=== PATIENT | female | born 1940 | race Caucasian/White ===

== ENCOUNTER → 2024-01-16 09:53 | Outpatient (REF) | payer MEDICARE, OTHER, SELFPAY | LOC: RAD 09:53 | PROVIDERS: ATTENDING PHYSICIAN Surgery Vascular Surgery; FAMILY PHYSICIAN Family Medicine | DX: I65.23 Occlusion and stenosis of bilateral carotid arteries (principal) | CPT/HCPCS: 93880 ==

== ENCOUNTER → 2024-02-25 11:27 | Outpatient (REF) | payer MEDICARE, OTHER, SELFPAY | LOC: WDC 11:27 | PROVIDERS: ATTENDING PHYSICIAN Family Medicine | DX: Z12.31 Encounter for screening mammogram for malignant neoplasm of breast (principal) | CPT/HCPCS: 77063; 77067 ==

== ENCOUNTER → 2024-07-16 12:51 | Outpatient (REF) | payer MEDICARE, OTHER, SELFPAY | LOC: RAD 12:51 | PROVIDERS: ATTENDING PHYSICIAN Surgery Vascular Surgery | DX: I65.23 Occlusion and stenosis of bilateral carotid arteries (principal) | CPT/HCPCS: 93880 ==

== ENCOUNTER → 2025-01-21 14:21 | Outpatient (REF) | payer MEDICARE, OTHER, SELFPAY | LOC: RAD 14:21 | PROVIDERS: ATTENDING PHYSICIAN Surgery Vascular Surgery; FAMILY PHYSICIAN Family Medicine | DX: I65.23 Occlusion and stenosis of bilateral carotid arteries (principal) | CPT/HCPCS: 93880 ==

== ENCOUNTER → 2025-07-13 14:08 | Outpatient (REF) | payer MEDICARE, OTHER, SELFPAY | LOC: RAD 14:08 | PROVIDERS: ATTENDING PHYSICIAN Registered Nurse; FAMILY PHYSICIAN Family Medicine | DX: I65.23 Occlusion and stenosis of bilateral carotid arteries (principal) | CPT/HCPCS: 93880 ==

== ENCOUNTER 2025-07-21 18:52 | Inpatient (IN) | payer MEDICARE, SELFPAY ==
[2025-07-21] VITALS (37 sets, daily range): BP systolic 86–204; BP diastolic 54–146; BMI 27.6
--- NOTE | 2025-07-21 16:09 | ED.CVA ---
History of Present Illness
General
Chief Complaint: CVA/TIA Symptoms
Source: patient and ambulance crew
Exam Limitations: clinical condition and altered mental status
Time Seen by Provider: 07/21/25 16:02
Nursing documentation reviewed up to this point in time: agreed with
Onset of Stroke Symptoms
Onset of symptoms known: Yes
Date of onset of symptoms: 07/21/25
Time of onset of symptoms: 14:00
History of Present Illness
History of Present Illness:
Patient presents to ED secondary to right facial droop and difficulty speaking, noted by her this afternoon. Patient's last known well time is approximately 2:00 this afternoon, when she asked her to check her blood pressure.
Prehospital stroke alert activated. Upon arrival, patient is found to exhibit left preferential gaze and unable to follow verbal commands. Unable to obtain any information from patient at this time. Patient transported to CT scan immediately.
Past History
Past History
ED Past Medical History: None
ED Past Surgical History: None
Social History
Tobacco: Non-smoker
Alcohol: None
Review of Systems
Review of Systems
Allergies reviewed?: Yes
Unable to obtain full review of systems at this time due to: due to acuity
All Other Systems: Not applicable
Phy Exam
Physical Exam
Physical Exam:
Physical Exam
General: moderate distress, acutely ill. afebrile.
Head: nc/at. pupils equal and midline
Neck: supple. no jvd. no carotid bruit
Heart: s1/s2 regular rate and rhythm
Lungs: no acute respiratory distress. clear bilaterally
Abdomen: normal bowel sounds. no distention
Neuro: awake but not following commands. intermittent spontaneous jerking UE/LE movements noted, not purposeful
Skin: no rash
Extremities: no edema. no calf tenderness.
Course
Orders/Labs/Results
Orders:
Orders
07/21/25 16:02
CT HEAD STROKE ALERT W/o Cont Urgent
Comment:
Reason For Exam: preferential gaze, speech impairment
CT HEAD/NECK ANG STROKE ALERT Urgent
Comment:
Reason For Exam: preferential gaze, speech impairment
07/21/25 16:06
Bedside Glucose- Treatment ONCE
Cardiac Monitoring- Treatment ONCE
07/21/25 16:08
Electrocardiogram (*1) Urgent
Reason for Study: TIA/Stroke
EKG- Treatment ONCE
07/21/25 16:13
Midazolam HCl [Versed] 1 mg IV NOW STA
07/21/25 16:20
Midazolam HCl [Versed] 1 mg IV NOW STA
07/21/25 16:27
Midazolam HCl [Versed] 2 mg .ROUTE .STK-MED ONE
07/21/25 16:29
Midazolam HCl [Versed] 1 mg IV NOW STA
07/21/25 16:36
Tenecteplase [Tnkase] 18 mg Syringe [Syringe Non-Pump] 0 ml IV NOW
07/21/25 16:40
Midazolam HCl [Versed] 1 mg IV NOW STA
07/21/25 16:43
Lorazepam [Ativan] 2 mg .ROUTE .STK-MED ONE
07/21/25 16:47
Levetiracetam Injectable [Keppra] 4,000 mg .ROUTE .STK-MED ONE
Lorazepam [Ativan] 1 mg IV NOW STA
07/21/25 16:51
Basic Metabolic Panel Urgent
Complete Blood Count/No Diff Urgent
PTT Urgent
Prothrombin Time Urgent
07/21/25 16:52
Levetiracetam Injectable [Keppra] 4,000 mg IV NOW STA
07/21/25 16:58
Lorazepam [Ativan] 1 mg IV NOW STA
07/21/25 17:09
Labetalol HCl [Trandate] 20 mg .ROUTE .STK-MED ONE
07/21/25 17:11
Labetalol HCl [Trandate] 10 mg IV NOW STA
07/21/25 17:21
Labetalol HCl [Trandate] 10 mg IV NOW STA
07/21/25 17:54
Restraints - Non Violent As Directed
Justification-Patient:: 2-Protective Intervention
Restraint Type-: Soft Limb-L Wrist/4rails
Soft Limb-R Wrist/4 rails
Apply From (date): 07/21/25
Apply from (time): 17:54
Remove (date): 07/22/25
Remove (time): 23:59
07/21/25 18:18
Admit/Transfer Patient As Directed
Co-Sign Provider:
Level of Care: Inpatient admission
Assign to:: ICU
Physician / Group: jose,andree
Diagnosis: acute cva s/p tnk
Reason for Hospitalization: acute cva s/p tkn
Expected length of stay greater than two midnights?: Yes
ELOS- Estimated Length of Stay in days: 6
I certify the patient meets the requirements for IP care: Yes
07/21/25 18:19
Code Status As Directed
Resuscitation Status: Full Code
07/21/25 18:24
PRN Pain Medication Management As Directed
May give lesser potent ordered pain med per pt: Yes
preference::
Protocol:: Medication orders for pain may be administered in a
manner that supports deferring to patient preference
when the pt is:
- Requesting an ordered lesser potent pain medication.
Least to most potent pain medications are defined
as: acetaminophen < NSAID < tramadol < opioids
(morphine, oxycodone, hydromorphone).
- Requesting a lesser dose of the same medication IF
ORDERED.
- Requesting a less intrusive route of administration
if both routes are prescribed by the provider (PO <
IV).
07/21/25 19:08
Acetaminophen [Tylenol] 650 mg PO Q4HPRN PRN
07/21/25 19:08
Electrocardiogram (*1) Routine
Reason for Study: TIA/Stroke
Case Management Consult Once
Case Management Consult: Discharge Planning
DIETARY IP CONSULT Routine
Reason for Consult: stroke/TIA
Media Marketing Manager Consult Routine
Consulting Provider: Tommie Ortiz
Was physician already notified: Yes
Reason for consult: acute cva
NEUROLOGY CONSULT Urgent
Consulting Provider: Lorenzo Knutson
Was physician already notified: Yes
Electric Motor Mechanic Urgent
MR Brain Without Contrast Routine
Comment: complete 24 hrs post tenecteplase administration
Reason For Exam: possible stroke, status post tenecteplase
OK for patient to be off Cardiac Monitoring for MRI: Yes
Recent pill cam endoscopy?: No
Pacemaker/Defibrillator?: No
Hemetest Stools As Directed
Comment: hemoccult all stools if patient received tenecteplase
NIH Stroke Scale As Directed
Directions: Other
Comment: NIH stroke Scale to be completed prior to thrombolytic administration, then every 1 hour for 2
hours, then every shift and with change in condition and/or mental status.
Neurological Checks As Directed
Frequency: Per unit guidelines
Additional Instructions:: after start of thrombolytic therapy:
q15min x 2 hrs, q30min x 6 hrs, q1h x 16 hrs, q4h x 24 hrs, then every shift and
with any changes.
Notify MD As Directed
Notify physician if: - Any deterioration, change in neurological status, development of severe headache,
nausea and vomiting, or with any signs of bleeding. (see guidelines for suspected
intracerebral hemorrhage).
- If intracranial hemorrhage is suspected or confirmed by imaging, anticipate need for
osmotic diuretic to maintain euvolemia.
Notify MD As Directed
Notify physician if: Glucose less than 70 or greater than 180.
Anticipate corrective insulin orders.
Notify MD As Directed
Notify physician if: unable to obtain MRI of head within 22-32 hours of tenecteplase administration
- contact Neurology for order for CT of head without contrast
Patient Education As Directed
Type: Stroke education packet
Comment: provide to patient and family
Pneumatic Compression Sleeves As Directed
Type: Knee high
Precautions As Directed
Type of Precautions: Bleeding
Comment: post Bleeding Precaution sign at bedside (if patient received tenecteplase)
Precautions As Directed
Type of Precautions: Seizure
Swallow Screening CVA/TIA ONLY As Directed
Comment: NPO until swallow screening completed
If patient FAILS swallow screening:: NPO and Speech consult and aspiration precautions
If patient PASSES swallow screening, diet:: Regular
Thrombolytic Precautions As Directed
Thrombolytic Precautions:: [place] bleeding precautions. Minimize invasive procedures and venipunctures,
avoid IM injections and over-handling patient, and check all puncture sites for
bleeding. Assess the patient and notify provider for signs and symptoms of
internal or serious bleeding, such as changes in vital signs or evidence of blood
in the urine or stool.
Additional instructions: Hemocult all stools.
Apply direct pressure or pressure dressing to any compressible puncture sites.
No ABG sampling or Ray insertion after Tenecteplase administration for 24 hours,
unless directed by the Neurologist/Attending.
Vital Signs As Directed
Frequency: q15m
Call for:: BP greater than 180/105 mmHg or less than 100/60 mmHg
Additional Instructions:: after start of thrombolytic therapy:
q15min x 2 hrs, q30min x 6 hrs, q1h x 16 hrs, q4h x 24 hrs, then every shift and
with any changes.
Ot Eval And Treat Routine
Physiatry Consult Routine
Consulting Provider: Jose Miguel Newman
Was physician already notified: Yes
Reason for consult: stroke/TIA
Pt Eval And Treat Routine
Activity Level: With Assistance
Speech Therapy Eval & Treat Routine
DX Deep Vein Thrombosis Video Routine
07/21/25 19:30
Venous Blood Gas Urgent
%Oxygen/Room Air: RA
Comment: once in ICU
07/22/25 06:00
Basic Metabolic Panel IN AM
Cardiovascular Evaluation IN AM
Complete Blood Count/No Diff IN AM
Hgba1c [Glycohemoglobin (HgbA1c)] IN AM
PTT IN AM
Prothrombin Time IN AM
VerifyNow Aspirin IN AM
Pt on daily regimen OR been given initial dose of aspirin?: Yes
Abnormal Lab Results
07/21/25
16:46
POC Glucose 101 H mg/dl
(70-99)
07/21/25 16:51
07/21/25 16:51
Vital Signs
Initial and Last Documented VS:
Initial Vital Signs
Pulse Resp
102 27
07/21/25 16:44 07/21/25 16:44
Last Documented Vital Signs
Temp Pulse Resp BP Pulse Ox
98.0 F 70 15 142/89 96
07/21/25 21:15 07/21/25 22:30 07/21/25 22:30 07/21/25 22:30 07/21/25 21:55
MDM/Problems Addressed
MDM/Problems Addressed:
Due to patient requiring multiple doses of benzodiazepine, secondary to continual involuntary movements, slight delay in obtaining adequate CT scan. In addition, upon returning from CT, patient requiring further sedation and medications, to control
blood pressure, for purpose of administering TNK potentially.
Discussed with patient's family regarding patient's condition and recommendation to administer TNK, with risk of bleeding up to 6% discussed. and children are all in agreement to administer TNK at this time.
Discussed with stroke fellow, Dr. Barclay via telestroke at [facility]. Although exam limited due to patient's inability to follow commands, based on description of patient's symptoms prior to arrival in ED and time of
onset, does recommend administering TNK at this time. In addition, agrees with plan to administered keppra, as movements are continuing thru mult doses of versed/ativan
CTA report reviewed, which does not show significant stenosis of large vessel, although his some details are unable to be obtained due to motion artifacts.
Patient will be admitted to ICU for further evaluation and treatment.
BP 163/64 at time TnK is given, after treatment with labetalol IV.
Critical care statement: A total of 40 minutes of critical care time was provided for this patient. This includes management of unstable vital signs, evaluation of the patient at bedside, reviewing the patient's pertinent medical records, discussion
with consultants, review of old EKGs and review of pertinent medical records. This time with separate from time utilized to perform the aforementioned documented procedures
*Pulse Oximetry
Patient hypoxic: no
*Critical Care Note
Total Time (30-74mins, 75-104mins- exclusive of procedures): 40 min
ED Attending Note
-
Portions of this chart may have been created with voice recognition software.� Occasional wrong word or��sound alike� substitutions may have occurred due to the inherent limitations of voice recognition software.
Discharge Plan
Departure
Patient Disposition: Admit
Date of Disposition: 07/21/25
Time of Disposition: 17:48
Admit to: ICU
Presentation/result/management discussed w/ accepting MD/DO: Hospitalist
Discharge Problem:
Acute CVA (cerebrovascular accident), Involuntary jerky movements
Interventions
Interventions:
*Risk Screen - Suicide Last Done: 07/21/25 16:13
*General Assessment Last Done: 07/21/25 16:13
*Neglect/Abuse Screening Last Done: 07/21/25 16:13
*ED COVID-19 Vaccine History Last Done: 07/21/25 16:13
*ED Influenza Vaccine History Last Done: 07/21/25 16:13
*Nursing Disposition Last Done: 07/21/25 19:16
ED- Pulmonary Assessment Last Done: 07/21/25 16:15
ED- Neurological Assessment Last Done: 07/21/25 16:15
ED- Cardiac Assessment Last Done: 07/21/25 16:15
Discharge Date and Time
Discharge Date/Time: 07/21/25 19:16
[2025-07-21] MEDS: VERSED 1 MG IV ×4 (16:16→16:40)
[2025-07-21] MEDS: ATIVAN 1 MG IV ×2 (16:47→16:59)
[2025-07-21 16:48] LABS: Glucose - Point of Care 101 mg/dl (70-99)
[2025-07-21] MEDS: KEPPRA 4000 MG IV (16:55)
[2025-07-21 16:57] LABS: Hematocrit 44.0 % (37.0-47.0); Hemoglobin 14.7 g/dL (12.0-16.0); Mean Corp Hgb Conc. 33.4 g/dL (33.0-37.0); Mean Corpuscular Volume 89.8 fL (81.0-99.0); Platelet Count 176 10^3/uL (130-400); Red Cell Dist. Width 13.2 % (11.5-14.5)
[2025-07-21 17:07] LABS: INR 1.06; PT 14.1 Sec (11.4-14.6)
[2025-07-21 17:08] LABS: APTT 25.0 Sec (23.4-35.0)
[2025-07-21] MEDS: TRANDATE 10 MG IV ×2 (17:11→17:21)
[2025-07-21 17:23] LABS: Blood Urea Nitrogen 14 mg/dl (7-17); Calcium 9.9 mg/dl (8.4-10.2); Carbon Dioxide 27 mmol/L (22-30); Chloride 102 mmol/L (98-107); Glucose 99 mg/dl (70-99); Sodium 135 mmol/L (135-145); eGFR > 60.00
[2025-07-21] MEDS: TNKASE 3.6 MG IV (17:27)
--- NOTE | 2025-07-21 17:46 | W.PN.UPDATE ---
Update Note
Progress Note Update
This note serves as an addendum to the H&P by watch parts grinder VERA�
Delaney Leann
HPI
84M
PHX HTN ( valsartan/HCTZ ? ) HLD ( ASA and Rosuvastatin ) breast CA s/p right lumpectomy 1997
Seen at ER s/p TNK :1800H
HPI noted for
- pre hospital stroke alert
Source: from ER attd Exam Limitations: clinical condition and altered mental status
Onset of Stroke Symptoms
Onset of symptoms known: Yes
Date of onset of symptoms: 07/21/25
Time of onset of symptoms: 14:00
Stroke alert for
- R facial droop
- difficulty speaking, noted by her this afternoon.
- last known well time is approximately 2:00 pm today
- she asked her to check her blood pressure.
- Prehospital stroke alert activated.
Upon arrival, patient is found to exhibit per ER record:
- left preferential gaze and unable to follow verbal commands.
- Unable to obtain any information from patient at this time.
IV Labetalol 10 x 2
IV Lorazepam 1 mg x2
IV Midazolam 1mg x 3
TNK
Relevant VS
07/21/25
16:46 07/21/25
17:08 07/21/25
17:19
Blood pressure 126/97 165/146 204/94
Vital Signs
Pulse Resp BP Pulse Ox
76 26 163/64 95
07/21/25 17:45 07/21/25 17:45 07/21/25 17:25 07/21/25 17:45
PE:
Limited exam due to sedated and reslesness
Gen: restless, unable to wake her up
Cor: RRR S1 S2
Abdomen:�soft
SUPERINTENDENT HORTICULTURE: involuntary non purposeful movement s
Relevant data�
11/11/25
16:51
WBC 9.4
Hgb 14.7
Plt Count 176
INR 1.06
Creatinine 0.6
eGFR > 60.00
HCT
No evidence of acute intracranial abnormality. Stable CT appearance.
CT HEAD/NECK ANG STROKE ALERT
- There is significant motion artifact on this examination, significantly limiting the exam.
- Calcification of the visualized superior thoracic aorta with no significant dilation.
- There is probably no significant narrowing of the origin of the right brachiocephalic artery, limited by motion.
The origin of the left common carotid artery is not adequately evaluated.
The origin of the left subclavian artery is not adequately evaluated.
The origin of the right subclavian artery is not adequately evaluated.
- The mid to distal portion of the right common carotid artery is visualized.
There is a reported history of previous right carotid endarterectomy.
Mild narrowing at the junction of the right common carotid artery and the carotid bulb, with diameter reduction of 25%.
- The origin of the proximal left ICA shows no evidence for significant narrowing. 1 cm superior to the origin of the left ICA, motion artifact is to severe for evaluation of a 2 cm segment of the proximal ICA.
Motion artifact improves in the cervical portion of the right ICA, with no evidence for hemodynamically significant narrowing.
- Motion artifact and dense contrast within the left internal jugular vein significantly limits evaluation of the left common carotid artery, left carotid bulb, and proximal left internal carotid artery, and the examination is nondiagnostic in
this region.
- Visualization of the mid to superior cervical left ICA is adequate with no evidence for significant narrowing.
- Motion limits evaluation of the petrous portion of the right ICA.
- No gross evidence for narrowing of the distal portion of the left ICA.
- There is mild to moderate motion artifact involving the cavernous portions of the internal carotid arteries bilaterally, with no gross evidence for high-grade stenosis, but limited evaluation.
- No gross evidence for narrowing of the anterior cerebral arteries.
- There is no evidence for high-grade stenosis or large vessel occlusion involving the M1 portions of the middle cerebral arteries bilaterally.
- There is a stable calcification involving the M2 portion of the right middle cerebral artery, within the sylvian fissure, involving a distal M2 branch.
Limited evaluation of the intracranial vessels with no gross evidence for high-grade stenosis.
- The origins of the vertebral arteries are not confidently identified. There appears to be some enhancement of the V1 and proximal V2 portions of the vertebral arteries bilaterally. There is some enhancement of the V3 portions of the vertebral
arteries bilaterally. Artifact limits evaluation of the V4 portions of the vertebral arteries bilaterally, but at least a portion of these segments have enhancement. No gross evidence for significant narrowing. The basilar artery is better
visualized and there is mild calcification with no evidence for high-grade stenosis.
Limited evaluation of the posterior cerebral arteries with no gross evidence for high-grade stenosis.
Changes of degenerative disc disease in the cervical spine greatest at C5-6 and C6-7. There is anterior listhesis at C7-T1 and T1-T2. Mild dextroconvex scoliosis centered in the upper thoracic spine with mild to moderate levoconvex scoliosis
centered in the midthoracic spine.
Motion artifact limits evaluation of the upper lungs, with mild dependent atelectasis and no other gross abnormality.
Automatic exposure control radiation dose reduction technology was utilized.
Last hospitalist admission:07/16/2021 - 07/19/2021
ASSESSMENT & PLAN
Acute R facial droop + difficulty speaking
Pre TNK agitation and restlessness require sedation wiht IV Lorazepam 1 mg x2 IV Midazolam 1mg x 3
- Per ER atd: CTA report reviewed, which does not show significant stenosis of large vessel, although his some details are unable to be obtained due to motion artifacts.
- s/p TNK
- FU post TNK protocol
- Permissive HTN > 220/ 120
- No APL till further advise by
- ER attd Note: dw with stroke fellow, Dr. Bishop via telestroke at [facility].
Although exam limited due to patient's inability to follow commands, based on description of patient's symptoms prior to arrival in ED and time of onset, does recommend administering TNK at this time.
In addition, agrees with plan to administered Keppra, as movements are continuing thru multiple doses of versed/Ativan
Sedated and restlessness
- IV Ativan 1mg q4H PRN
DLP
- c/w Crestor
Right superior and inferior pubic rami fracture HX
DVT Px: SCD
Full code
ICU
case dw ER attd and family in length
Total Critical Care Time__45___ minutes.
I was immediately available to the patient and staff. I personally examined, reviewed labs, diagnostic images/reports, interpretations, treatment plans, discussed patient care with other providers and family or caregivers (if patient is unable to
make decisions), entered orders as appropriate and documented the medical record.
--- NOTE | 2025-07-21 17:48 | HPS.HSE ---
Family Physician
-
Family Physician: Magalis Julian MD
Chief Complaint
-
Right facial droop difficulty speaking eye gaze
History of Present Illness
84-year-old female was last seen approximate 2 PM this afternoon by her when she asked her to check her blood pressure. He notes she had difficulty moving her right arm getting it out of her robe. She started to have trouble
speaking but then speech became clear. He called his son over to the house who noticed that she was not responding as normal she had right sided facial droop. Upon EMS arrival she was found to exhibit left preferential gaze unable to follow verbal
commands. Stroke alert was called was determined by stroke fellow patient received TNK. Her states yesterday she was complaining of headache and did take Excedrin. According to ER nurse upon arrival patient was unresponsive but restless
moving all of her extremities in bed shoulders arms legs head but was unable to open eyes follow commands. She received Versed 4 mg, IV Ativan, Keppra 4000 mg and is still restless. Her family states she does have some baseline movement disorder
of her arms and legs but never to this degree. She does not have fever, diaphoresis, cough, vomiting, diarrhea.
She has past medical history of migraines, right carotid enterectomy 05/21/2023, HTN, HLD, Gilbert's syndrome, diverticulosis, colonic polyps breast cancer 1997 status post right lumpectomy, chemo, radiation, DJD, diverticulosis,
osteoarthritis,/osteopenia glaucoma, right superior and inferior pubic rami fractures after mechanical 03/29/2021
Medical History
Past Medical History
Past Medical History: Reports Other
Additional Past Medical History:
migraines
right carotid enterectomy 05/21/2023
HTN
HLD
Gilbert's syndrome,
diverticulosis
colonic polyps
breast cancer 1997 status post right lumpectomy, chemo, radiation
DJD
diverticulosis
osteoarthritis,/osteopenia
glaucoma,
right superior and inferior pubic rami fractures after mechanical 03/29/2021
Past Surgical History: Reports Other
Additional Past Surgical History:
Right CEA 05/21/2023
Breast lumpectomy 1998 secondary to breast cancer
Social History
Tobacco: Non-smoker
Alcohol: None
Drug: None
Personal:
Living: With Family ( Lance)
Employment: Retired
Family History
Family History: Other (No family history stroke)
Allergies / Home Medications
Allergies reflects when Allergies were last updated in [facility].
Home Medications with original date entered in [employer] [facility]
Allergy/Medication List:
Allergies
Allergy/AdvReac Type Severity Reaction Status Date / Time
atorvastatin Allergy MUSCLE Verified 05/21/23 07:28
CRAMPS
pollen extracts Allergy congestion/ Verified 05/21/23 12:41
sneezing
raloxifene (From Evista) Allergy Hives Verified 05/21/23 07:28
strawberry Allergy Hives Verified 05/21/23 07:28
Home Medications
ascorbic acid (vitamin C) 500 mg tablet (Vitamin C) 500 mg PO DAILY Supplement 05/21/23
calcium 600 mg (as carbonate)-vit D3 20 mcg (800 unit) chewable tablet (Caltrate plus D) 1 tab PO DAILY Supplement 05/21/23
valsartan 320 mg-hydrochlorothiazide 12.5 mg tablet 1 tab PO DAILY Blood Pressure 05/21/23
yetknev-olapkcwkqjfhm-bakekhkm 250 mg-250 mg-65 mg tablet (Excedrin Extra Strength) 1 tab PO DAILYPRN PRN headaches 07/21/25
carboxymethylcellulose sodium 0.5 % eye drops (Refresh Tears) 1 drp BOTH EYES BIDPRN PRN dryness 07/21/25
latanoprost 0.005 % eye drops 1 drp BOTH EYES HS Eye Condition 07/21/25
rosuvastatin 20 mg tablet (Crestor) 20 mg PO DAILY High Cholesterol 07/21/25
Review of Systems
-
History Source: Family ( Lance son and daughters at bedside) and Other (ER nurse)
A 12 point ROS was completed and negative except as noted: Yes
Constitutional: Reports Other (Unresponsive but moving all extremities including head, upper shoulders very restless in bed); Denies Chills
EENT: Denies Runny Nose
Respiratory: Denies Cough or Trouble Breathing
Cardiac: Denies Chest Pain, Diaphoresis, Palpitations or Syncope
Abdomen/GI: Denies Abdominal Pain, Nausea, Vomiting or Diarrhea
: Reports Ray (Inserted in ER)
Musculoskeletal: Denies Joint Pain or Edema
Skin: Denies Rash
Neurological: Reports Other (Moving all extremities in bed but unresponsive)
Hematologic/Lymphatic: Denies Bleeding or Bruising
Physical Exam
Vital Signs
Vital Signs
Pulse Resp BP Pulse Ox
76 26 163/64 95
07/21/25 17:45 07/21/25 17:45 07/21/25 17:25 07/21/25 17:45
Physical Exam
General: Other (Unresponsive but moving all extremities including head in bed)
HEENT: NormoCephalic, Anicteric, Moist mucous membranes, PERRLA (With manual opening 3 mm bilaterally), [place] Conjunctivae and No Ptosis
Respiratory: Clear; No Wheezes, Rales or Rhonchi
Cardiac: S1/S2 and Regular Rhythm; No Murmur, Rub, Gallop or Peripheral Edema
Breast: Deferred by me
GI: Soft, Non Tender, Non Distended, Normal Bowel Sounds and No Hepatosplenomegaly
Rectal: Deferred by Provider
Genito-urinary: Deferred by me
Musculoskeletal: No Clubbing, No Cyanosis and No Edema
Skin: Warm and Dry; No Rash
Neuro: Other (Unresponsive but moving all extremities including head in bed)
Psych: Other (Restless)
Laboratory Results
-
07/21/25 16:51
07/21/25 16:51
Laboratory Results
PT 14.1 Sec (11.4-14.6) 07/21/25 16:51
INR 1.06 07/21/25 16:51
APTT 25.0 Sec (23.4-35.0) 07/21/25 16:51
Total Bilirubin Cancelled 07/21/25 16:51
AST Cancelled 07/21/25 16:51
ALT Cancelled 07/21/25 16:51
Alkaline Phosphatase Cancelled 07/21/25 16:51
Data Reviewed
-
CT Scan: Report Reviewed by me
Lab Data: Labs Reviewed by me
Impression/Plan
-
Impression/plan:
Admit to ICU
#Acute CVA status post TNK
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
ER spoke with Jaden Gallo resident
Consult neurology
-Patient given 4000 mg of Keppra IV
-Keppra bid IV tmr per dr marino
-EEG
- IV total 4 mg Versed given
- IV Ativan given in ER
- Continue IV Ativan as needed restlessness
- Consult hall tender Dr. Edmondson aware once in ICU will obtain VBG, current saturation 94% RA
-Allow permissive hypertension 220/120
-Check lipid profile, HgbA1c
- PT/OT/case management consult
- TNK protocol
-N.p.o.
- MRI tomorrow if able
- IV Ativan as needed
CT head: 1. There is a focal area of encephalomalacia involving the right parietal lobe and extending to the junction with the superior right occipital lobe in the posterior and superior right temporal lobe,
stable from previous examination, and likely from an OLD area of infarction.
2. There is a stable calcification within a right middle cerebral artery branch within the right sylvian fissure.
3. There is a 3 mm stable calcification within the right paramedian superior frontal lobe.
4. There is no evidence for acute intracranial hemorrhage. There is no mass effect with no midline shift.
5. Mild to moderate atrophy in this 84-year-old, which appears stable. The callosal angle appears normal, and findings are not considered highly suggestive of normal pressure hydrocephalus
#Hypertensive urgency
BP 209/94 was given IV Trandate BP 160/146
Will allow permissive hypertension given acute CVA
# Status post Right carotid enterectomy 05/21/2023,
#migraines
#HLD
#Gilbert's syndrome
#Diverticulosis
Colonic polyps
Other PMH:
breast cancer 1997 status post right lumpectomy, chemo, radiation
DJD
osteoarthritis,/osteopenia
glaucoma
Right superior and inferior pubic rami fractures after mechanical 03/29/2021
DVT prophylaxis
SCDs as patient received TNK
Full code per Lance at bedside and family
[2025-07-21 19:18] LABS: Glucose - Point of Care 136 mg/dl (70-99)
[2025-07-21] MEDS: PRECEDEX 100 IV (19:30)
--- NOTE | 2025-07-21 19:30 | PTCARENOTE ---
Rec'd patient from Ed post TNK@1725 thrashing around in bed, not opening eyes, hypertensive. Upon assessment Pupils 3 and briskly reactive. Right eye with left gaze, left eye midline. No tracking, does not keep eyes open herself. GCS 6, KAUR Right
side 4/5, Left side 3/5. Patient not opening eyes to any stimuli, no sounds heard, withdraws to pain in all 4 extremities. No commands followed. Very difficult to obtain NIH, NIH not previously documented. NIH in ICU 32 (mostly untestable in areas).
HOB 30 degrees. B/L wrist restraints applied for safety as patient thrashes and has already unintentionally dislodged one IV site as per ED nurse. Order appreciated. Bedrest maintained with bed alarm on. Temp noted to be 101.1 axillary, Ofirmev
order obtained and infused. Temp now 98.0 axillary. NSR on monitor. BP prior to arrival in ICU 234/117, as per ED RN. In ICU, 167/113. MD Ortiz made aware and at bedside for eval. Due to increased agitation, Precedex gtt started to maintain RASS
0--2. As per MD Ortiz, BP goals <180/105. Cardene gtt if needed once Dex takes effect. SCDs applied. Pulses palpable, no edema. Accu check 136. 4L nasal cannula, snoring intermittently. 93%. Lungs clear. NPO. Ray to gravity placed in ED. At
this time, BP/agitation controlled with Precedex. and children at bedside and updated on plan of care. Will monitor closely. MRI ordered for tomorrow.
[2025-07-21] MEDS: OFIRMEV 100 IV (19:31)
[2025-07-21 19:36] LABS: Venous Blood Gas B.E. 3.0 mmol/L (-4 to +4); Venous Blood Gas O2 Sat % 94.6 %
[2025-07-21] MEDS: NSS 250 IV (23:37)
[2025-07-22] VITALS (57 sets, daily range): BP systolic 116–190; BP diastolic 52–132; BMI 27.6
--- NOTE | 2025-07-22 00:02 | PTCARENOTE ---
Titrated Dex to RASS score, but once relaxed, became bradycardic and slightly hypotensive. Gtt weaned off, IVF bolus given. BP 140s, pt continued to thrash in bed and constantly shake head back and forth. Not following commands, neuro check
unchanged from beginning of shift. CTH ordered. When patient lays flat, unable to safely protect airway. Snore heard then apnea and sat decreased. [employer] Idalia at bedside and MD Ortiz made aware of airway safety. CTH on hold. Cerebell applied as
ordered. 0% seizure burden noted. Able to get good reading for 2 hours, then patient thrashing skewed results thereafter. Cerebell discontinued. Sitting upright, airway intact. Will monitor.
--- NOTE | 2025-07-22 03:00 | W.PN.UPDATE ---
Update Note
Progress Note Update
7153 Concern for change in neuro status (agitation and not FOC). Ceribell applied to rule out seizure activity. No seizure burden noted. Patient to agitated to continued device. Discussed repeating Head CT with Dr. Perez but concerned for airway
protection, agitation, and patient not tolerating being flat. Plan will be to reasses in AM for possible CT scan repeat.
[2025-07-22 05:31] LABS: Hematocrit 44.9 % (37.0-47.0); Hemoglobin 14.5 g/dL (12.0-16.0); Mean Corp Hgb Conc. 32.3 g/dL (33.0-37.0); Mean Corpuscular Volume 91.4 fL (81.0-99.0); Platelet Count 150 10^3/uL (130-400); Red Cell Dist. Width 13.1 % (11.5-14.5)
[2025-07-22 05:58] LABS: Blood Urea Nitrogen 12 mg/dl (7-17); Calcium 9.6 mg/dl (8.4-10.2); Carbon Dioxide 28 mmol/L (22-30); Chloride 103 mmol/L (98-107); Estimated Creatinine Clearance 61 ml/min; Glucose 118 mg/dl (70-99); HDL Cholesterol 56 mg/dl; LDL Cholesterol, Calculated 56 mg/dl; Magnesium 2.0 mg/dl (1.6-2.3); Potassium 4.5 mmol/L (3.5-5.1); Sodium 137 mmol/L (135-145); Very Low Density Lipoprotein 20 mg/dl (0-30); eGFR > 60.00
[2025-07-22 06:21] LABS: INR 1.12; PT 14.7 Sec (11.4-14.6)
[2025-07-22 06:22] LABS: APTT 22.9 Sec (23.4-35.0)
--- NOTE | 2025-07-22 08:15 | CON.MD ---
Documented by User: Joyce Flores PA-C 07/23/25 17:20
Consultation - Medical
-
Referring Provider:�
Chief Complaint:�CVA
�
History of Present Illness:�84-year-old female with PMH of (migraines, right carotid enterectomy 05/21/2023, HTN, HLD, Gilbert's syndrome, diverticulosis, colonic polyps, breast cancer 1998 status post right lumpectomy, chemo, radiation, DJD,
diverticulosis, osteoarthritis,/osteopenia glaucoma, right superior and inferior pubic rami fractures after mechanical 03/29/2021) presented to [facility] ED on 07/21/2025 via EMS for symptoms of facial droop, mental status change, difficulty moving her
right upper extremity. Prehospital stroke alert was activated .Upon arrival patient with left preferential gaze and unable to follow verbal commands. Unable to obtain information for patient. She was unresponsive but restless moving all of her
extremities but was unable to open her eyes to follow commands. She received Versed 4 mg, IV Ativan, Keppra 4000 mg and was still restless. Patient received TNK. per family, she has baseline movement disorder of her arms and legs but never to
this degree.
CT scan of the head with for acute intra cranial abnormality. Stable CT appearance. CTA of neck/head-Motion limits evaluation.no evidence for high-grade stenosis or large vessel occlusion involving the M1 portions of the middle cerebral arteries
bilaterally. Limited evaluation of the posterior cerebral arteries with no gross evidence for high-grade stenosis. Motion artifact limits evaluation of the upper lungs, with mild dependent atelectasis and no other gross abnormality. As warranted, a
follow-up cerebrovascular ultrasound could be considered
07/22--overnight there was concern for change in neurostatus, patient was agitated. Rapid EEG was done with no seizure activity. Patient was too agitated to continue device. Plan is to attempt to reassess in the morning for possible CT scan
repeat.
MRI of the brain was done that showed small nonhemorrhagic acute/subacute infarct in the right parieto-occipital region. There is an intraparenchymal hematoma within the posterior high right parietal lobe measuring 2.0 x 2.0 x 2.0 cm, with
surrounding vasogenic edema. No midline shift or herniation. Neuro recommended repeating CT of head to evaluate hematoma and to continue Keppra 500mg daily.
Repeat CT scan of head�07/22/2025 shows round focus of acute intracranial hemorrhage involving the posterior right parietal lobe, corresponding to the finding on early MRI of the brain. Antiplatelet and anticoagulation and DVT prophylaxis are
placed on hold pending neurology clearance.
Patient seen at bedside this morning, kept eyes closed at all times except when asked to open them. She is sleepy and cognitively impaired. responds to verbal cues but goes back to sleeping.
Past Medical History:�migraines, right carotid enterectomy 05/21/2023, HTN, HLD, Gilbert's syndrome, diverticulosis, colonic polyps, breast cancer 1998 status post right lumpectomy, chemo, radiation, DJD, diverticulosis, osteoarthritis,/osteopenia
glaucoma, right superior and inferior pubic rami fractures after mechanical 03/29/2021
Procedure History:� right carotid enterectomy 05/21/2023, right lumpectomy,
Family History:�non contributory
�
Social History:�
Functional Level Premorbidly:�Independent with all activities�
Functional Level Currently:�speech seen 07/22- strict NPO pending further evaluation. Not evaluated yet by therapy
�
Tobacco:�Denies�
Alcohol:�Denies�
Drug use:�Denies�
�
Lives with:�
24-hour assistance available:�
Number of floors:�Split-level home
# steps to enter:�None
# steps to second floor:
Potential First floor set up:�no
Driving:�previously
Occupation:�Retired
�
�
Allergies:�
Allergy/AdvReac Type Severity Reaction Status Date / Time
atorvastatin Allergy MUSCLE Verified 05/21/23 07:28
CRAMPS
pollen extracts Allergy congestion/ Verified 05/21/23 12:41
sneezing
raloxifene (From Evista) Allergy Hives Verified 05/21/23 07:28
strawberry Allergy Hives Verified 05/21/23 07:28
�
Review of Systems:�
Constitutional: (x) abNormal _tired,sleepy
Eye: (x) Normal _
Ear/Nose/Throat: (x) Normal _
Respiratory: (x) Normal _
Cardiovascular: (x) Normal _
Gastrointestinal: (x) Normal _
Genitourinary: (x) Normal _
Musculoskeletal: (x) abNormal _right sided weakness
Integumentary: (x) Normal _
Neurologic: (x) abNormal _confusion, agitation, right facial droop. involuntary movements
Psychiatric: (x) Normal _
Endocrine: (x) Normal _
Hematologic/Lymphatic: (x) Normal _
Allergic/Immunologic: (x) Normal _
�
Medications:�
Active Current Visit Medication List
Category Date Time Status
Acetaminophen [Tylenol] Med 07/21/25 19:08 Active
650 mg PO Q4HPRN PRN
Dexmedetomidine 400 Mcg/100 ml [Precedex] Med 07/21/25 19:30 Active
400 mcg in 100 ml IV PER PROTOCOL
Flush (0.9% Sodium Chloride) [Flush (Nss)] Med 07/21/25 20:00 Active
See Dose Instructions IV PER PROTOCOL
Levetiracetam Injectable [Keppra] Med 07/22/25 08:00 Active
500 mg IV Q12
Nicardipine 40 mg/200 ml [Cardene] Med 07/21/25 19:30 Active
40 mg in 200 ml IV PER PROTOCOL
�
Vitals:�
Temp Pulse Resp BP Pulse Ox
98.3 F 76 19 145/101 95
07/23/25 08:00 07/23/25 08:00 07/23/25 08:00 07/23/25 08:00 07/23/25 08:00
Height 5 ft 2 in
Actual Weight 67.6 kg
Body Mass Index (BMI) 27.3
�
Physical Exam:�
General Appearance/Observation: Well-developed, well-nourished individual in no apparent distress lying in bed�with involuntary movements, sleepy, kept eyes closed at all times except when stimulated
Pain/Comfort Assessment: Denies�
Mood/Affect: sleepy
�
Integumentary/Operative Site:�
�� Pressure Ulcer Evaluation: absent over heels.�
�� Other Type of Wound: face looks flushed
��
�
Eyes: Conjunctiva/Lids: normal���� Pupils: pupils equal round and reactive to light and Accommodation�: unable to visualized as was not keeping eyes open enough
Ears/Nose/Throat: oral mucosa moist,� throat -not visualized����������� Lips/Teeth/Gums: lips dry
Neck: No muscle spasm or tenderness�
Cardiovascular: Heart: regular, no murmur�
Pulses: dorsalis pedis 2+ bilaterally�
Respiratory: Respiratory Effort/Chest Expansion: normal������� Auscultation: Clear to auscultation bilaterally�
Gastrointestinal: abdomen not tender, no distension, normal abdominal bowel sounds
Genitourinary: No Ray�
Extremities:�Edema: None�Cyanosis: None�Trophic�changes: None
�
Neurology Exam:
Orientation: Alert, Oriented to self, [facility]. Not to time- said 2011 for year. Says that she is 66. She came to the hospital on the
Memory: impaired, not answering much
Comprehension: seems intact but may be slow
Two step command: impaired
Naming: NT- sleepy
Cranial Nerves:
�� CNII:�Pupillary light reflex: Intact-NT����Visual Field: impaired on left, left eye appears smaller, eyelid mostly closed. does not look to her left, had to tap her arm
�� CN III, IV, : Extraocular muscles: not tracking, left eye inverted
�� CN V:�Facial Sensation�at�Forehead: Intact,�Maxilla: Intact,�Mandible: Intact : Not tested- sleepy
�� CN VII:�Facial movement: mild facial droop, left cheek muscle seems indented, could be resting dependent
�� CN VIII:�Hearing: Normal
�� CN IX/X:�Speech & swallow: hypophonia,�Position of Uvula: Midline
�� CN XI:�Shoulder shrug: NT- sleeping , involuntary movement of RUE noted
�� CN XII:�Tongue protrusion: Midline
Sensory:
�� Light touch: Intact in bilateral upper and lower extremities : not able to assess- closes eyes and tries to sleep
��
Reflexes:
�� Biceps: 2+ bilaterally
�� Brachioradialis: 2+ bilaterally
�� Triceps: 2+ bilaterally
�� Patellar: 2+ bilaterally
�� Achilles: absent bilaterally
�� Babinski: Down going bilaterally
�� Clonus: None
�� Sriram: Negative bilaterally�
Cerebellar: Dysmetria/Ataxia: NT
Musculoskeletal:
Motor: (Manual muscle scale 0-5)� (Grossly tested as was sleepy)
Muscle SA EF WE EE FF FA HF KE DF EHL PF
Right� 5 5 5 5 5 5 5 5
Left 4 4 4 4 4 4 4- 4-
�
Tone: Normal in all extremities�
Range of Motion: Passively within normal limits hammertoes, claw toes noted
�
Lab Results:
Labs
WBC 12.5 10^3/uL (4.8-10.8) H 07/23/25 03:44
RBC 4.32 10^6/uL (4.20-5.40) 07/23/25 03:44
Hgb 12.9 g/dL (12.0-16.0) 07/23/25 03:44
Hct 38.8 % (37.0-47.0) 07/23/25 03:44
MCV 89.8 fL (81.0-99.0) 07/23/25 03:44
MCH 29.9 pg (27.0-31.0) 07/23/25 03:44
MCHC 33.2 g/dL (33.0-37.0) 07/23/25 03:44
RDW 13.2 % (11.5-14.5) 07/23/25 03:44
Plt Count 151 10^3/uL (130-400) 07/23/25 03:44
MPV 9.3 fL (7.4-10.4) 07/23/25 03:44
PT 14.7 Sec (11.4-14.6) H 07/22/25 04:45
INR 1.12 07/22/25 04:45
APTT 22.9 Sec (23.4-35.0) L 07/22/25 04:45
Plt Function - Aspirin Cancelled 07/22/25 05:53
pH 7.48 (7.35-7.45) H 07/22/25 11:23
pCO2 38 mmHg (32-35) H 07/22/25 11:23
pO2 96 mmHg (83-108) 07/22/25 11:23
HCO3 28.3 mmol/L (21-28) H 07/22/25 11:23
Base Excess 4.6 mmol/L 07/22/25 11:23
ABG O2 Sat (Measured) 98.7 % (94-98) H 07/22/25 11:23
VBG pH 7.37 (7.32-7.43) 07/21/25 19:30
VBG pCO2 51 mmHg (35-48) H 07/21/25 19:30
VBG pO2 66 mmHg (30-50) H 07/21/25 19:30
VBG HCO3 29.5 mmol/L (22-27) H 07/21/25 19:30
VBG O2 Sat (Vasquez) 94.6 % 07/21/25 19:30
VBG Base Excess 3.0 mmol/L (-4 to +4) 07/21/25 19:30
VBG O2 Therapy 07/21/25 19:30
Sodium Cancelled 07/22/25 05:17
Potassium Cancelled 07/22/25 05:17
O2 Delivery Level 07/22/25 11:23
Sodium 141 mmol/L (135-145) 07/23/25 03:44
Potassium 3.6 mmol/L (3.5-5.1) 07/23/25 03:44
Chloride 106 mmol/L (98-107) 07/23/25 03:44
Carbon Dioxide 28 mmol/L (22-30) 07/23/25 03:44
BUN 14 mg/dl (7-17) 07/23/25 03:44
Creatinine 0.5 mg/dL (0.6-1.0) L 07/23/25 03:44
Estimated Creat Clear 61 ml/min 07/23/25 03:44
eGFR > 60.00 07/23/25 03:44
Glucose 96 mg/dl (70-99) 07/23/25 03:44
Hemoglobin A1c 5.3 % (4.0-5.9) 07/22/25 04:45
Calcium 9.1 mg/dl (8.4-10.2) 07/23/25 03:44
Ionized Calcium Cancelled 07/22/25 05:17
Phosphorus 2.9 mg/dl (2.5-4.5) 07/23/25 03:44
Magnesium 2.0 mg/dl (1.6-2.3) 07/23/25 03:44
Total Bilirubin Cancelled 07/21/25 16:51
AST Cancelled 07/21/25 16:51
ALT Cancelled 07/21/25 16:51
Alkaline Phosphatase Cancelled 07/21/25 16:51
Total Protein Cancelled 07/21/25 16:51
Albumin Cancelled 07/21/25 16:51
Triglycerides 102 mg/dl (10-149) 07/22/25 04:44
Total Cholesterol 132 mg/dl (50-199) 07/22/25 04:44
LDL Cholesterol, Calc 56 mg/dl 07/22/25 04:44
VLDL Cholesterol, Calc 20 mg/dl (0-30) 07/22/25 04:44
HDL Cholesterol 56 mg/dl 07/22/25 04:44
Vitamin B12 821 pg/ml (239-931) 07/23/25 03:44
TSH (Reflex) 2.12 uIU/ml (0.47-4.68) 07/23/25 03:44
POC Glucose 136 mg/dl (70-99) H 07/21/25 19:17
�
Diagnostic Results:�as per HPI�
CT of Head 07/22/25
FINDINGS: Within the posterior and superior right parietal lobe, there is a rounded focus of increased density compatible with acute hematoma. This measures 2.0 cm transverse by 1.8 cm AP by 1.6 cm craniocaudal, and corresponds to this hematoma seen
in this region on earlier MRI of the brain. Of note, this is a new finding comparing to CT of the head of July 21, 2025.
Minimal adjacent rim of white matter edema with no significant associated mass effect.
No other focal area of acute intracranial hemorrhage is identified.
Stable region of encephalomalacia involving the right parieto-occipital and posterior temporal lobe.
Mild to moderate diffuse atrophy which appears stable. Stable moderate leukomalacia.
7 mm polyp or mucous retention cyst in the inferior right maxillary sinus. There is mild mucosal thickening in the posterior sphenoid sinuses. The rest of the visualized paranasal sinuses appear clear. The mastoid air cells appear clear.
IMPRESSION:
There is a round focus of acute intracranial hemorrhage involving the posterior right parietal lobe, corresponding to the finding on earlier MRI of the brain.
�
MRI of Brain - 07/22/2025
FINDINGS: Within the posterior and superior right parietal lobe, there is a rounded focus of increased density compatible with acute hematoma. This measures 2.0 cm transverse by 1.8 cm AP by 1.6 cm craniocaudal, and corresponds to this hematoma seen
in this region on earlier MRI of the brain. Of note, this is a new finding comparing to CT of the head of July 21, 2025.
Minimal adjacent rim of white matter edema with no significant associated mass effect.
No other focal area of acute intracranial hemorrhage is identified.
Stable region of encephalomalacia involving the right parieto-occipital and posterior temporal lobe.
Mild to moderate diffuse atrophy which appears stable. Stable moderate leukomalacia.
7 mm polyp or mucous retention cyst in the inferior right maxillary sinus. There is mild mucosal thickening in the posterior sphenoid sinuses. The rest of the visualized paranasal sinuses appear clear. The mastoid air cells appear clear.
IMPRESSION:
There is a round focus of acute intracranial hemorrhage involving the posterior right parietal lobe, corresponding to the finding on earlier MRI of the brain.
Assessment: 84-year-old female with left hemiparesis, left neglect and dysphagia found to have small nonhemorrhagic acute/subacute infarct in the right parieto-occipital region with conversion to acute intracranial hemorrhage involving the posterior
right parietal lobe
�
Plan�
PM&R�PT/OT to increase independence with ADLs, improve balance, coordination, endurance, strength, mobility, community reintegration, decreased burden of care on others and family education.�
�
CVA: Secondary prophylaxis -anticoagulant on hold due to hemorrhage, statin, and blood pressure control (SBP less than 180 and diastolic less than 100 to participate with therapy for ischemic stroke). Continue to monitor neurologic status.�
left nondominant hemiparesis: High risk for falls and sliding out of chair/bed. Safety reinforced.�
- Avoid using affected arm to help lift or pull patient as this will cause trauma to the shoulder.
left Neglect: makes patient at increased risk for falls.� Will need therapy to work on scanning of environment for safe navigation.�
Dysphagia: speech evaluation, NPO . oral care protocol, aspiration precautions. Advance diet as tolerated.�
Dysarthria: speech evaluation�
Seizures Prophylaxis: Continue Keppra, seizure precautions�. EEG to be repeated today
HTN: continue medications, monitor closely�
HLD: Statin�
Anemia: Likely multifactorial.� Continue to monitor.�
Psych: Psychology consult.� Monitor mood, adjust medications as needed.�
Skin: monitor for pressure sores/rashes/lesions.�
Pain: acetaminophen as needed.�
History of breast cancer: Noted, status postlumpectomy and chemo
Bowel: recommend adding Colace and Senna, PRN bisacodyl.�
Bladder: Time void, PVRs, PRN straight cath.�
GI Prophylaxis: T/C adding Pantoprazole�once on anticoagulant
DVT Prophylaxis: mechanical. Comment if chemoprophylaxis restrictions
Pulmonary: Incentive spirometry�
Safety: Continue to reinforce assistance with all transfers.�
Code Status:� Full code
Dispo�(date/plan/equipment needs): Home with family care.� Social history reviewed.�
�
Functional and Medical Goals:�Modified Independent with ADL�s, ambulation, transfers�
�
Discharge Destination: Patient may be an ideal candidate for acute inpatient rehabilitation once she has been evaluated by PT/OT to determine her baseline and her deficits. Will continue to follow for further recommendation
�
�
Thank you for allowing me to care for your patient. Please contact me with any questions or concerns.
Consultation
-
Date/Time Consultation Requested: 07/21/2025
Date/Time Consultation Performed: 07/21/2025
Requesting Provider: Delaney Noriega CRNP
Performing Provider: Joyce Flores/Dr. Newman
Reason for Consultation: CVA

Documented by User: Jose Miguel Newman MD 07/23/25 22:02
Consultation - Medical
-
Chief Complaint:�CVA
�
History of Present Illness:�84-year-old Right handed female with PMH of (migraines, right carotid enterectomy 05/21/2023, HTN, HLD, Gilbert's syndrome, diverticulosis, colonic polyps, breast cancer 1997 status post right lumpectomy, chemo,
radiation, DJD, diverticulosis, osteoarthritis,/osteopenia glaucoma, right superior and inferior pubic rami fractures after mechanical 03/29/2021) presented to [facility] ED on 07/21/2025 via EMS for symptoms of facial droop, mental status change,
difficulty moving her left upper extremity. Prehospital stroke alert was activated .Upon arrival patient with left preferential gaze and unable to follow verbal commands. Unable to obtain information for patient. She was unresponsive but restless
moving all of her extremities but was unable to open her eyes to follow commands. She received Versed 4 mg, IV Ativan, Keppra 4000 mg and was still restless. Patient received TNK. per family, she has baseline movement disorder of her arms and
legs but never to this degree.
CT scan of the head with no acute intra cranial abnormality. Stable CT appearance. CTA of neck/head-Motion limits evaluation.no evidence for high-grade stenosis or large vessel occlusion involving the M1 portions of the middle cerebral arteries
bilaterally. Limited evaluation of the posterior cerebral arteries with no gross evidence for high-grade stenosis. Motion artifact limits evaluation of the upper lungs, with mild dependent atelectasis and no other gross abnormality. As warranted, a
follow-up cerebrovascular ultrasound could be considered
07/22--overnight there was concern for change in neurostatus, patient was agitated. Rapid EEG was done with no seizure activity. Patient was too agitated to continue device. Plan is to attempt to reassess in the morning for possible CT scan
repeat.
MRI of the brain was done that showed small nonhemorrhagic acute/subacute infarct in the right parieto-occipital region. There is an intraparenchymal hematoma within the posterior high right parietal lobe measuring 2.0 x 2.0 x 2.0 cm, with
surrounding vasogenic edema. No midline shift or herniation. Neuro recommended repeating CT of head to evaluate hematoma and to continue Keppra 500mg daily.
Repeat CT scan of head�07/22/2025 shows round focus of acute intracranial hemorrhage involving the posterior right parietal lobe, corresponding to the finding on early MRI of the brain. Antiplatelet and anticoagulation and DVT prophylaxis are
placed on hold pending neurology clearance.
Patient seen at bedside this morning, kept eyes closed at all times except when asked to open them. She is sleepy and cognitively impaired. responds to verbal cues but goes back to sleeping.
Past Medical History:�migraines, right carotid enterectomy 05/21/2023, HTN, HLD, Gilbert's syndrome, diverticulosis, colonic polyps, breast cancer 1998 status post right lumpectomy, chemo, radiation, DJD, diverticulosis, osteoarthritis,/osteopenia
glaucoma, right superior and inferior pubic rami fractures after mechanical 03/29/2021
Procedure History:� right carotid enterectomy 05/21/2023, right lumpectomy
Family History:�non contributory
�
Social History:�
Functional Level Premorbidly:�Independent with all activities�
Functional Level Currently:�speech seen 07/22- strict NPO pending further evaluation. Not evaluated yet by therapy
�
Tobacco:�Denies�
Alcohol:�Denies�
Drug use:�Denies�
�
Lives with:�
24-hour assistance available:�Yes
Number of floors:�Split-level home
# steps to enter:�1+5 to main floor
Potential First floor set up:�no
Driving:�previously
Occupation:�Retired
�
�
Allergies:�
Allergy/AdvReac Type Severity Reaction Status Date / Time
atorvastatin Allergy MUSCLE Verified 05/21/23 07:28
CRAMPS
pollen extracts Allergy congestion/ Verified 05/21/23 12:41
sneezing
raloxifene (From Evista) Allergy Hives Verified 05/21/23 07:28
strawberry Allergy Hives Verified 05/21/23 07:28
�
Review of Systems:�
Constitutional: (x) abNormal _tired,sleepy
Eye: (x) Normal _
Ear/Nose/Throat: (x) Normal _
Respiratory: (x) Normal _
Cardiovascular: (x) Normal _
Gastrointestinal: (x) Normal _
Genitourinary: (x) Normal _
Musculoskeletal: (x) abNormal _right sided weakness
Integumentary: (x) Normal _
Neurologic: (x) abNormal _confusion, agitation, left facial droop. involuntary movements
Psychiatric: (x) Normal _
Endocrine: (x) Normal _
Hematologic/Lymphatic: (x) Normal _
Allergic/Immunologic: (x) Normal _
�
Medications:�
Active Current Visit Medication List
Category Date Time Status
Acetaminophen [Tylenol] Med 07/21/25 19:08 Active
650 mg PO Q4HPRN PRN
Dexmedetomidine 400 Mcg/100 ml [Precedex] Med 07/21/25 19:30 Active
400 mcg in 100 ml IV PER PROTOCOL
Flush (0.9% Sodium Chloride) [Flush (Nss)] Med 07/21/25 20:00 Active
See Dose Instructions IV PER PROTOCOL
Levetiracetam Injectable [Keppra] Med 07/22/25 08:00 Active
500 mg IV Q12
Nicardipine 40 mg/200 ml [Cardene] Med 07/21/25 19:30 Active
40 mg in 200 ml IV PER PROTOCOL
�
Vitals:�
Temp Pulse Resp BP Pulse Ox
98.3 F 76 19 145/101 95
07/23/25 08:00 07/23/25 08:00 07/23/25 08:00 07/23/25 08:00 07/23/25 08:00
Height 5 ft 2 in
Actual Weight 67.6 kg
Body Mass Index (BMI) 27.3
�
Physical Exam:�
General Appearance/Observation: Well-developed, well-nourished female in no apparent distress lying in bed�with involuntary movements, sleepy, able to keep eyes open for exam but would try to close them at times. Occasional nonvolitional motor
twitches.
Pain/Comfort Assessment: Denies�
Mood/Affect: appropriate
�
Integumentary/Operative Site:�
�� Pressure Ulcer Evaluation: absent over heels.�
�
Eyes: Conjunctiva/Lids: normal���� Pupils: pupils equal round and reactive to light and Accommodation
Ears/Nose/Throat: oral mucosa moist,� throat -not visualized����������� Lips/Teeth/Gums: lips dry
Neck: No muscle spasm or tenderness�
Cardiovascular: Heart: regular, no murmur�
Pulses: dorsalis pedis 2+ bilaterally�
Respiratory: Respiratory Effort/Chest Expansion: normal������� Auscultation: Clear to auscultation bilaterally�
Gastrointestinal: abdomen not tender, no distension, normal abdominal bowel sounds
Genitourinary: No Ray�
Extremities:�Edema: None�Cyanosis: None�Trophic�changes: None
�
Neurology Exam:
Orientation: Alert, Oriented to self, Place- hospital. Not to time- said 2011 then 2014 for year. Says that she is 66. She came to the hospital on the
Memory: impaired
Comprehension: seems intact but may be slow processing
Two step command: impaired
Difficulty reading clock across the room without glasses, with glasses said 2:10 instead of 10 to 2.
Cranial Nerves:
�� CNII:�Pupillary light reflex: Intact���Visual Field: impaired on left, eyelid mostly closed. does not look to her left much, hemianopsia vs inattention. Difficulty with seeing fingers left visual field.
�� CN III, IV, : Extraocular muscles: trouble tracking, left eye inverted
�� CN V:�Facial Sensation�at�Forehead: Intact,�Maxilla: Intact,�Mandible: Intact
�� CN VII:�Facial movement: left facial weakness
�� CN VIII:�Hearing: Normal
�� CN IX/X:�Speech & swallow: hypophonia, dysarthria, dysphagia�Position of Uvula: Midline
�� CN XI:�Shoulder shrug: decreased on left
�� CN XII:�Tongue protrusion: Midline
Sensory:
�� Light touch: Intact in bilateral upper and lower extremities : not able to assess- closes eyes and tries to sleep
��
Reflexes:
�� Biceps: 2+ bilaterally
�� Brachioradialis: 2+ bilaterally
�� Triceps: 2+ bilaterally
�� Patellar: 2+ bilaterally
�� Achilles: absent bilaterally
�� Babinski: Down going bilaterally
�� Clonus: None
�� Sriram: Negative bilaterally�
Cerebellar: Dysmetria/Ataxia: NT
Musculoskeletal: Motor: (Manual muscle scale 0-5)� (Grossly tested as was sleepy)
Muscle SA EF WE EE FF FA HF KE DF EHL PF
Right� 4 5 5 5 5 5 5 5 5
Left 3 4 4 4 4 4 4 4- 4-
�
Tone: Normal in all extremities�
Range of Motion: Passively within normal limits hammertoes, claw toes noted
�
Lab Results:
Labs
WBC 12.5 10^3/uL (4.8-10.8) H 07/23/25 03:44
RBC 4.32 10^6/uL (4.20-5.40) 07/23/25 03:44
Hgb 12.9 g/dL (12.0-16.0) 07/23/25 03:44
Hct 38.8 % (37.0-47.0) 07/23/25 03:44
MCV 89.8 fL (81.0-99.0) 07/23/25 03:44
MCH 29.9 pg (27.0-31.0) 07/23/25 03:44
MCHC 33.2 g/dL (33.0-37.0) 07/23/25 03:44
RDW 13.2 % (11.5-14.5) 07/23/25 03:44
Plt Count 151 10^3/uL (130-400) 07/23/25 03:44
MPV 9.3 fL (7.4-10.4) 07/23/25 03:44
PT 14.7 Sec (11.4-14.6) H 07/22/25 04:45
INR 1.12 07/22/25 04:45
APTT 22.9 Sec (23.4-35.0) L 07/22/25 04:45
Plt Function - Aspirin Cancelled 07/22/25 05:53
pH 7.48 (7.35-7.45) H 07/22/25 11:23
pCO2 38 mmHg (32-35) H 07/22/25 11:23
pO2 96 mmHg (83-108) 07/22/25 11:23
HCO3 28.3 mmol/L (21-28) H 07/22/25 11:23
Base Excess 4.6 mmol/L 07/22/25 11:23
ABG O2 Sat (Measured) 98.7 % (94-98) H 07/22/25 11:23
VBG pH 7.37 (7.32-7.43) 07/21/25 19:30
VBG pCO2 51 mmHg (35-48) H 07/21/25 19:30
VBG pO2 66 mmHg (30-50) H 07/21/25 19:30
VBG HCO3 29.5 mmol/L (22-27) H 07/21/25 19:30
VBG O2 Sat (Vasquez) 94.6 % 07/21/25 19:30
VBG Base Excess 3.0 mmol/L (-4 to +4) 07/21/25 19:30
VBG O2 Therapy 07/21/25 19:30
Sodium Cancelled 07/22/25 05:17
Potassium Cancelled 07/22/25 05:17
O2 Delivery Level 07/22/25 11:23
Sodium 141 mmol/L (135-145) 07/23/25 03:44
Potassium 3.6 mmol/L (3.5-5.1) 07/23/25 03:44
Chloride 106 mmol/L (98-107) 07/23/25 03:44
Carbon Dioxide 28 mmol/L (22-30) 07/23/25 03:44
BUN 14 mg/dl (7-17) 07/23/25 03:44
Creatinine 0.5 mg/dL (0.6-1.0) L 07/23/25 03:44
Estimated Creat Clear 61 ml/min 07/23/25 03:44
eGFR > 60.00 07/23/25 03:44
Glucose 96 mg/dl (70-99) 07/23/25 03:44
Hemoglobin A1c 5.3 % (4.0-5.9) 07/22/25 04:45
Calcium 9.1 mg/dl (8.4-10.2) 07/23/25 03:44
Ionized Calcium Cancelled 07/22/25 05:17
Phosphorus 2.9 mg/dl (2.5-4.5) 07/23/25 03:44
Magnesium 2.0 mg/dl (1.6-2.3) 07/23/25 03:44
Total Bilirubin Cancelled 07/21/25 16:51
AST Cancelled 07/21/25 16:51
ALT Cancelled 07/21/25 16:51
Alkaline Phosphatase Cancelled 07/21/25 16:51
Total Protein Cancelled 07/21/25 16:51
Albumin Cancelled 07/21/25 16:51
Triglycerides 102 mg/dl (10-149) 07/22/25 04:44
Total Cholesterol 132 mg/dl (50-199) 07/22/25 04:44
LDL Cholesterol, Calc 56 mg/dl 07/22/25 04:44
VLDL Cholesterol, Calc 20 mg/dl (0-30) 07/22/25 04:44
HDL Cholesterol 56 mg/dl 07/22/25 04:44
Vitamin B12 821 pg/ml (239-931) 07/23/25 03:44
TSH (Reflex) 2.12 uIU/ml (0.47-4.68) 07/23/25 03:44
POC Glucose 136 mg/dl (70-99) H 07/21/25 19:17
�
Diagnostic Results:�as per HPI�
CT of Head 07/22/25
FINDINGS: Within the posterior and superior right parietal lobe, there is a rounded focus of increased density compatible with acute hematoma. This measures 2.0 cm transverse by 1.8 cm AP by 1.6 cm craniocaudal, and corresponds to this hematoma seen
in this region on earlier MRI of the brain. Of note, this is a new finding comparing to CT of the head of July 21, 2025.
Minimal adjacent rim of white matter edema with no significant associated mass effect.
No other focal area of acute intracranial hemorrhage is identified.
Stable region of encephalomalacia involving the right parieto-occipital and posterior temporal lobe.
Mild to moderate diffuse atrophy which appears stable. Stable moderate leukomalacia.
7 mm polyp or mucous retention cyst in the inferior right maxillary sinus. There is mild mucosal thickening in the posterior sphenoid sinuses. The rest of the visualized paranasal sinuses appear clear. The mastoid air cells appear clear.
IMPRESSION:
There is a round focus of acute intracranial hemorrhage involving the posterior right parietal lobe, corresponding to the finding on earlier MRI of the brain.
�
MRI of Brain - 07/22/2025
FINDINGS: Within the posterior and superior right parietal lobe, there is a rounded focus of increased density compatible with acute hematoma. This measures 2.0 cm transverse by 1.8 cm AP by 1.6 cm craniocaudal, and corresponds to this hematoma seen
in this region on earlier MRI of the brain. Of note, this is a new finding comparing to CT of the head of July 21, 2025.
Minimal adjacent rim of white matter edema with no significant associated mass effect.
No other focal area of acute intracranial hemorrhage is identified.
Stable region of encephalomalacia involving the right parieto-occipital and posterior temporal lobe.
Mild to moderate diffuse atrophy which appears stable. Stable moderate leukomalacia.
7 mm polyp or mucous retention cyst in the inferior right maxillary sinus. There is mild mucosal thickening in the posterior sphenoid sinuses. The rest of the visualized paranasal sinuses appear clear. The mastoid air cells appear clear.
IMPRESSION:
There is a round focus of acute intracranial hemorrhage involving the posterior right parietal lobe, corresponding to the finding on earlier MRI of the brain.
Assessment:
84 y/o F PMH (migraines, right carotid enterectomy 05/21/2023, HTN, HLD, Gilbert's syndrome, diverticulosis, colonic polyps, breast cancer 1998 status post right lumpectomy, chemo, radiation, DJD, diverticulosis, osteoarthritis,/osteopenia glaucoma)
with left hemiparesis, left neglect and dysphagia found to have small nonhemorrhagic acute/subacute infarct in the right parieto-occipital region with conversion to acute intracranial hemorrhage involving the posterior right parietal lobe with ADL,
ambulatory, speech, and swallow dysfunction.
�
Plan�
PM&R�PT/OT to increase independence with ADLs, improve balance, coordination, endurance, strength, mobility, community reintegration, decreased burden of care on others and family education.�
�
CVA: Secondary prophylaxis -anticoagulant on hold due to hemorrhage, statin, and blood pressure control (SBP less than 140 and diastolic less than 90 to participate with therapy for hemorrhagic stroke). Continue to monitor neurologic status.�
Left nondominant hemiparesis: High risk for falls and sliding out of chair/bed. Safety reinforced.�
- Avoid using affected arm to help lift or pull patient as this will cause trauma to the shoulder.
Left Neglect: makes patient at increased risk for falls.� Will need therapy to work on scanning of environment for safe navigation.�
Dysphagia: speech evaluation, NPO. oral care protocol, aspiration precautions. Start diet as tolerated.�
Dysarthria: speech evaluation�
Seizures Prophylaxis: Keppra seizure prophylaxis, seizure precautions. EEG to be repeated today
HTN: Nicardipine drip, valsartan 160 mg daily. must be stable on oral meds, monitor closely�
HLD: Statin�
Anemia: Likely multifactorial.� Continue to monitor.�
Psych: Psychology consult.� Monitor mood, adjust medications as needed.�
Skin: monitor for pressure sores/rashes/lesions.�
Pain: acetaminophen as needed.�
History of breast cancer: Noted, status postlumpectomy and chemo
Bowel: recommend adding Colace and Senna, PRN bisacodyl.�
Bladder: Time void, PVRs, PRN straight cath.�
DVT Prophylaxis: mechanical. Chemoprophylaxis when cleared by neurology, typically 48 hours after stable bleed on CT scan.
Pulmonary: Incentive spirometry�
Safety: Continue to reinforce assistance with all transfers.�
Code Status:� Full code
Dispo�(date/plan/equipment needs): Home with family care.� Social history reviewed.�
Functional and Medical Goals:�Modified Independent with ADL�s, ambulation, transfers�
Discharge Destination: Patient will benefit from acute inpatient rehabilitation once medically stable.
Attending Statement: I saw and examined the patient today.� Reviewed care plan with patient, therapy, nursing, and physician offset assistant press operator.� I agree with the above subjective and physical exam, and plan as documented by AMILCAR Flores with adjustments
made as necessary. A total of 60 minutes were spent with the patient preparing for the evaluation, obtaining history, performing examination and evaluation, counseling, data review, case management, care coordination, circuit recorder, and EMR
documentation.
�
�
Thank you for allowing me to care for your patient. Please contact me with any questions or concerns.
[2025-07-22] MEDS: KEPPRA 500 MG IV ×2 (08:42→20:57)
[2025-07-22 09:03] LABS: Glycohemoglobin (HgbA1c) 5.3 % (4.0-5.9)
--- NOTE | 2025-07-22 09:17 | W.PN.HOSP.TC ---
Today's Communication/Plan
-
see bold
Assessment / Plan
Assessment / Plan
HPI: 84-year-old female was last seen approximate 2 PM this afternoon by her when she asked her to check her blood pressure. He notes she had difficulty moving her right arm getting it out of her robe. She started to have trouble
speaking but then speech became clear. He called his son over to the house who noticed that she was not responding as normal she had right sided facial droop. Upon EMS arrival she was found to exhibit left preferential gaze unable to follow verbal
commands. Stroke alert was called was determined by stroke fellow patient received TNK. Her states yesterday she was complaining of headache and did take Excedrin. According to ER nurse upon arrival patient was unresponsive but restless
moving all of her extremities in bed shoulders arms legs head but was unable to open eyes follow commands. She received Versed 4 mg, IV Ativan, Keppra 4000 mg and is still restless. Her family states she does have some baseline movement disorder
of her arms and legs but never to this degree. She does not have fever, diaphoresis, cough, vomiting, diarrhea.
Assessment/plan:
#Acute dysarthria
#Acute right facial droop
Status post TNK in the ED 07/21
Neurology following, continue post TNA protocol
1. Monitor NIHSS and neurologic checks
2. BP goal after tPA < 180/105 for 24 hours after tPA, PRN hydralazine
3. Check MRI of the brain without contrast if able, check echocardiogram
4. LDL 56, HgA1C 5.3. Resume statin when able
5. Hold antiplatelet anticoagulation and any DVT pharmacologic prophylaxis for 24 hours
6. Speech, physical, occupational therapies
#Acute toxic metabolic encephalopathy
Currently sedated on a Precedex drip
ABG's reviewed, patient is not hypercapnic
Check B12, TSH
Supportive care, IVFs, NPO, wean Precedex drip as able
#Flailing extremities concerning for seizure activity
Ceribell negative for seizures
Appreciate neurology input, for EEG
Continue IV Keppra
#Essential hypertension
Holding valsartan�hydrochlorothiazide
BP goal after tPA < 180/105 for 24 hours after tPA, PRN hydralazine
#Hyperlipidemia
Resume statin when able
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
#History of Gilbert's syndrome
#History of breast cancer 1997
Status post right lumpectomy, chemo, radiation
DVT prophylaxis�SCDs
Full code
Updated daughter at bedside 07/22
Total time spent to see the patient on the floor, examine the patient, review data and lab results, discuss treatment plan with patient, nursing staff around 50 minutes.
Physical Exam
General: Sedated
HEENT: Normocephalic, Atraumatic
Respiratory: Clear to Auscultation bilaterally
Cardiac: Normal S1/S2, Regular Rate and Rhythm
GI: Soft, Nontender, Nondistended, Normal Bowel Sounds
Extremities: No Clubbing, Cyanosis, or Edema
Neuro: Sedated
Psych: Sedated
Anticipated Discharge: > 48 hours
Subjective/Interval History
-
Date of Service: July 22, 2025
Overnight events noted. Patient agitated, with intermittent flailing concerning for seizure activity. She is currently mildly sedated on a Precedex drip. No fever, no vomiting.
Objective Data
-
Labs:
Laboratory Results
07/22/25 07/22/25 07/22/25
04:44 04:45 05:17
WBC 11.0 H
Hgb 14.5
Hct 44.9
Plt Count 150
PT 14.7 H
INR 1.12
APTT 22.9 L
HCO3 Cancelled
Sodium 137
Potassium 4.5
Chloride 103
Carbon Dioxide 28
BUN 12
Creatinine 0.5 L
Glucose 118 H
Calcium 9.6
Vital Signs:
Vital Signs
Temp Pulse Resp BP Pulse Ox
97.5 F 69 13 190/65 98
07/22/25 07:11 07/22/25 06:50 07/22/25 06:50 07/22/25 06:30 07/22/25 06:50
I&O
07/21/25 07/22/25 07/23/25
06:59 06:59 06:59
Intake Total 411.2 / 411.2
Output Total 1050 / 1050
Balance -638.8 / -638.8
--- NOTE | 2025-07-22 09:59 | CON.INTV ---
Consultation
Consultation Request
Date/Time Consultation Requested: 07/21/2025 19:08
Date/Time Consultation Performed: 07/22/2024 9:59
Requesting Provider: Delaney Noriega CRNP
Performing Provider: Tommie Ortiz MD
Medical History
-
Chief Complaint: Altered Mental Status
History of Present Illness:
By her family�s report, she had spent the morning with her and was her normal self. They were sitting on the couch together, and their last normal interaction was around 1:30PM. At 2:00PM, she let him know that the blood pressure machine was
not working, and when he attempted to help her use it he noticed she could not hold her arm up in the air appropriately. BP at that time was around 129/100. He then noticed she began to experience grimacing motions of her face, followed by garbling
of her words. He contacted their son, and when these symptoms persisted they ultimately called 911. EMS arrived to the house at 3:00PM and transported her to the hospital. When her arrived to the hospital a few minutes after the ambulance
did, he was surprised that she had soiled herself. He denies any prior facial drooping.
In the ED she was noted to have left preferential gaze and was unable to follow verbal commands with intermittent spontaneous jerking of the upper and lower extremities. BP was initially normal at 126/97, but increased to 204/94. She was given IV
labetaolol 10mg x2, IV Lorazepam 1mg x2 and IV Midazolam 1mg x3, as well as Keppra. Labs showed a BMP and CBC within normal limits aside from a hemolyzed potassium. CT head showed no evidence of acute intracranial abnormality with an ASPECT score of
10. Head/Neck CTA was limited by motion artifact. TNK was ultimately administered and she was admitted to the ICU for further management. Overnight she became agitated. A ceribell was applied which noted no seizure burden.
Today her family is at her bedside, who provided information for the HPI above. She reamins unresponsive and unable to follow commands.
Past Medical History
Past Medical History: HTN, Hypercholesterolemia and Other (Fabriziobert's syndrome, osteoarthritis, osteopenia, migraines)
Past Surgical History: Other (Right carotid enterectomy 05/21/2023, Breast cancer s/p right lumpectomy 1997 with chemotherapy and radiation)
Social History
Tobacco: Non-smoker
Alcohol: None
Drug: None
Personal:
Living: With Family
Employment: Retired
Family History
Family History: Reviewed & Not Pertinent
Allergies / Home Medications
Allergies
Allergy/AdvReac Type Severity Reaction Status Date / Time
atorvastatin Allergy MUSCLE Verified 05/21/23 07:28
CRAMPS
pollen extracts Allergy congestion/ Verified 05/21/23 12:41
sneezing
raloxifene (From Evista) Allergy Hives Verified 05/21/23 07:28
strawberry Allergy Hives Verified 05/21/23 07:28
Home Medications
�Medication �Instructions �Recorded �Confirmed �Last Taken �Type
ascorbic acid (vitamin C) 500 mg 500 mg PO DAILY Supplement 05/21/23 07/21/25 05/20/23 09:00 History
tablet (Vitamin C)
calcium 600 mg (as carbonate)-vit 1 tab PO DAILY Supplement 05/21/23 07/21/25 05/20/23 09:00 History
D3 20 mcg (800 unit) chewable
tablet (Caltrate plus D)
valsartan 320 1 tab PO DAILY Blood Pressure 05/21/23 07/21/25 07/21/25 History
mg-hydrochlorothiazide 12.5 mg
tablet
tubkawj-idtruknfjbqjb-jlvqjcue 250 1 tab PO DAILYPRN PRN headaches 07/21/25 07/21/25 Unknown History
mg-250 mg-65 mg tablet (Excedrin
Extra Strength)
carboxymethylcellulose sodium 0.5 1 drp BOTH EYES BIDPRN PRN dryness 07/21/25 07/21/25 Unknown History
% eye drops (Refresh Tears)
latanoprost 0.005 % eye drops 1 drp BOTH EYES HS Eye Condition 07/21/25 07/21/25 07/20/25 History
rosuvastatin 20 mg tablet (Crestor) 20 mg PO DAILY High Cholesterol 07/21/25 07/21/25 07/21/25 History
Review of Systems
-
Unable to Obtain full review of systems at this time due to: Patient Non Verbal
Vitals / Labs / Diagnostic Testing
Vital Signs
Temp Pulse Resp BP Pulse Ox
97.5 F 69 13 190/65 98
07/22/25 07:11 07/22/25 06:50 07/22/25 06:50 07/22/25 06:30 07/22/25 06:50
Lab Data
07/22/25 04:45
07/22/25 04:44
Laboratory Results
07/21/25 07/22/25 07/22/25
16:51 04:45 05:17
PT 14.1 14.7 H
INR 1.06 1.12
APTT 25.0 22.9 L
pH Cancelled
pCO2 Cancelled
pO2 Cancelled
HCO3 Cancelled
O2 Delivery Level Cancelled
Diagnostic Testing:
Physical Exam
-
HEENT: Normocephalic
Cardiovascular: S1/S2 and Regular Rhythm
Respiratory: Clear
GI: Soft and Non Distended
Neurology: Other (Unresponsive, unable to follow commands) and Other (No abnormal motions of the upper or lower extremities observed for the duration of the time I was in the room)
Skin: Warm, Dry and Good Color
General: Comfortable
Assessment
-
Assessment:
This is an 84 y/o female with pmhx of migraines, right carotid enderectomy in 2022, essential hypertension, Gilbert�s syndrome, osteoarthritis, who presented to the ED on 07/21/2025 via EMS after onset of abnormal motions of her arm and face,
garbled speech and altered mental status who was administered TNK in the ED
Plan:
Altered Mental Status s/p TNK
Patient with sudden onset of abnormal motions in her arm, grimacing in her face, garbled speech and then altered mental status
Differential diagnosis includes seizures, acute CVA
S/p TNK, 400mg Keppra IV in the ED, IV Ativan, IV labetalol
CT Head 07/21: No acute abnormalities
CTA Head/Neck 07/21: Exam severely limited by motion artifact. There is no evidence for high-grade stenosis or large vessel occlusion involving the M1 portions of the middle cerebral arteries bilaterally.
Neurology is following, will appreciate their insight
At this point, patient still remains unresponsive though now with no observed restlessness. She is currently guarding her airway with no indication for intubation at this current time
Continue to allow permissive hypertension in wake of TNK administration
Discussed her case with Neurology today. Per their recommendations will perform EEG today. If EEG does not demonstrate seizure activity, may proceed with an MRI of the head. If it comes to this will determine if patient potentially needs
supplemental oxygen vs intubation for MRI to ensure good study.
Hold pharmacological DVT prophylaxis until at least 24 hours post TNK, and after MRI if indicated otherwise ensure no active bleed. Updated family on this plan today, and they are in agreement
Continue Keppra 500mg BID
Continue Precedex drip
Ordered ABG to assess respiratory status int he event she may need to be intubated for MRI
Will monitor
Essential Hypertension
Continue to allow permissive hypertension in wake of TNK administration
D/c/'ed Cardene drip today, was not administered
Add PRN [id number] IV Q6hr for elevated blood pressures
--- NOTE | 2025-07-22 10:06 | CON.NEURO4 ---
Consultation - Neurology 4
-
CONSULTING PHYSICIAN: Dr. Lorenzo Knutson
REFERRING PHYSICIAN: Delaney HARRISON
DICTATED BY: Dr. Lorenzo Knutson
DATE/TIME OF REQUEST: 07/22/2025
DATE/TIME OF CONSULTATION: 07/22/2025
Reason for Consultation: Speech difficulty and right-sided facial droop
ASSESSMENT AND PLAN:
The patient is an 84-year-old female who approximately at 2 PM yesterday afternoon on 07/21/2025, was noted by the family to have difficulty in moving her right arm along with some trouble speaking. She was also reported to have a right-sided
facial droop. Upon arrival of the EMS, she was found to show a left gaze preference and was unable to follow verbal commands. Stroke alert was called and the patient received TNK. The patient was agitated and restless in the ER and she received 4
mg of Versed, intravenous Ativan, and 4000 mg of Keppra, but she still was restless.
. MRI of the brain was done that showed small nonhemorrhagic acute/subacute infarct in the right parieto-occipital region. There is an intraparenchymal hematoma within the posterior high right parietal lobe measuring 2.0 x 2.0 x 2.0 cm, with
surrounding vasogenic edema. No midline shift or herniation.
. The CT of the head showed a focal area of encephalomalacia involving the right parietal lobe and extending to the junction with the superior right occipital lobe in the posterior and superior right temporal lobe, stable from previous examination,
and likely from an old area of infarction. CT of the head did not show any acute intracranial abnormality.
. The CTA of the head and neck did not show a large vessel occlusion.
. Recommend to repeat a CT of the brain without contrast to evaluate the intraparenchymal hematoma in the right parietal lobe.
. Rapid EEG was done today that did not show evidence of status epilepticus.
. Continue current medications including Keppra 500 mg twice a day.
I had a detailed discussion with the patient's and her daughter regarding the assessment and the management plan, and they verbalized understanding of our discussion.
Will follow-up.
History of Present Illness:
The patient is an 84-year-old female who approximately at 2 PM yesterday afternoon on 07/21/2025, was noted by the family to have difficulty in moving her right arm along with some trouble speaking. She was also reported to have a right-sided
facial droop. Upon arrival of the EMS, she was found to show a left gaze preference and was unable to follow verbal commands. Stroke alert was called and the patient received TNK. The patient was agitated and restless in the ER and she received 4
mg of Versed, intravenous Ativan, and 4000 mg of Keppra, but she still was restless. When the patient was seen today the patient was was drowsy and was difficult to arouse, therefore the neurologic examination was very limited.
Past Medical History:
migraines
right carotid enterectomy 05/21/2023
HTN
HLD
Gilbert's syndrome,
Diverticulosis
Colonic polyps
Breast cancer
DJD
Osteoarthritis,
Osteopenia
Glaucoma,
Review of Systems: Unable to obtain review of systems due to the acuity of the medical condition.
Neurologic Examination:
The patient was very drowsy and was difficult to arouse.
The patient was unable to open her eyes to verbal commands, however she would respond by withdrawing her limbs to painful stimulus.
Vital Signs and Labs
-
Vital Signs and Labs:
Vital Signs
Temp Pulse Resp BP Pulse Ox
36.4 C 62 11 163/60 98
07/22/25 07:11 07/22/25 08:30 07/22/25 08:30 07/22/25 08:30 07/22/25 06:50
Lab Results
07/22/25 04:45
07/22/25 04:44
PT 14.7 Sec (11.4-14.6) H 07/22/25 04:45
INR 1.12 07/22/25 04:45
APTT 22.9 Sec (23.4-35.0) L 07/22/25 04:45
Sodium 137 mmol/L (135-145) 07/22/25 04:44
Potassium 4.5 mmol/L (3.5-5.1) 07/22/25 04:44
BUN 12 mg/dl (7-17) 07/22/25 04:44
Glucose 118 mg/dl (70-99) H 07/22/25 04:44
Calcium 9.6 mg/dl (8.4-10.2) 07/22/25 04:44
Phosphorus 4.0 mg/dl (2.5-4.5) 07/22/25 04:44
LDL Cholesterol, Calc 56 mg/dl 07/22/25 04:44
Medications
-
Active Medications
Generic Name Dose Route Start Last Admin
Trade Name Freq PRN Reason Stop Dose Admin
Acetaminophen 650 mg 07/21/25 19:08
Acetaminophen 325 Mg Tablet PO 08/18/25 19:07
Q4HPRN PRN
MARCUS, mild pain, or temp >100.4F
Nicardipine/Sodium Chloride 40 mg in 200 mls @ 0 mls/hr 07/21/25 19:30
Cardene IV
PER PROTOCOL STEPHANIE
Protocol
Per Protocol
Dexmedetomidine HCl 400 mcg in 100 mls @ 0 mls/hr 07/21/25 19:30 07/21/25 19:30
Precedex IV 100 mls
PER PROTOCOL STEPHANIE Administration
Protocol
Per Protocol
Levetiracetam 500 mg 07/22/25 08:00 07/22/25 08:42
Levetiracetam (100 Mg/Ml) 500 Mg/5 Ml Vial IV 08/19/25 07:59 500 mg
Q12 STEPHANIE Administration
Sodium Chloride 0 flush 07/21/25 20:00
Sodium Chloride 0.9% (Flush) Syringe IV 08/18/25 19:59
PER PROTOCOL STEPHANIE
Home Medications
�Medication �Instructions �Recorded
ascorbic acid (vitamin C) 500 mg 500 mg PO DAILY Supplement 05/21/23
tablet (Vitamin C)
calcium 600 mg (as carbonate)-vit 1 tab PO DAILY Supplement 05/21/23
D3 20 mcg (800 unit) chewable
tablet (Caltrate plus D)
valsartan 320 1 tab PO DAILY Blood Pressure 05/21/23
mg-hydrochlorothiazide 12.5 mg
tablet
rpsgupr-cmixphmyypvsc-fdfiryek 250 1 tab PO DAILYPRN PRN headaches 07/21/25
mg-250 mg-65 mg tablet (Excedrin
Extra Strength)
carboxymethylcellulose sodium 0.5 1 drp BOTH EYES BIDPRN PRN dryness 07/21/25
% eye drops (Refresh Tears)
latanoprost 0.005 % eye drops 1 drp BOTH EYES HS Eye Condition 07/21/25
rosuvastatin 20 mg tablet (Crestor) 20 mg PO DAILY High Cholesterol 07/21/25
--- NOTE | 2025-07-22 10:24 | PTOTSP ---
Speech Therapy Evaluation:
Pt with acute risk factor for dysphagia including concern for CVA. Pt largely non-responsive during evaluation with occasional head movements noted during oral care. No verbalizations observed and pt unable to follow commands. MARIEL did not improve
during oral care or with cold stimulus (ice) on pt's lips. Further PO trials held due to safety concerns.
Recommend:
1. Strict NPO
2. Meds non-oral
3. Not appropriate for ARHP
4. Oral care 3x/daily
5. PROGRAM AIDE GROUP WORK to follow to assess candidacy for diet initiation versus need for instrumental assessment and for further language/cognitive assessment as indicated
--- NOTE | 2025-07-22 10:25 | PTCARENOTE ---
pt unresponsive NIHSS 30 , she is restless with tactile stimulation , non purposeful movement , she is on Precedex 0.4 mcg for her agitation , it was off for 30 min this am for a neuro check and she was restless and moving in bed without any
purposeful movement , the Precedex is now back on at 0.4 mcg for agitation and safety , NSR on monitor , her BP average 150s -160s systolic , she is on 4L NC with sats of 94% , her 02 sats drop below 90s when off 02 , she has shallow , snoring
respirations with lying flat , pt family is at bedside and are updated on current plan of care and condition , speech therapy here for consult and pt is to remain NPO
[2025-07-22 11:32] LABS: B.E. 4.6 mmol/L; HCO3 28.3 mmol/L (21-28); O2 Saturation % 98.7 % (94-98); PCO2 38 mmHg (32-35); PO2 96 mmHg (83-108)
[2025-07-22] MEDS: PRECEDEX 100 IV (12:09)
--- NOTE | 2025-07-22 13:25 | W.RAPID.EEG ---
Rapid EEG
-
Procedure Date: 07/22/25
Patient Status: Inpatient
Results:
Impression:
No evidence of status epilepticus
Patient was awake and drowsy.
Recording Information:
Diagnostic Recording Time: 01:28:57 (89 minutes)
Recording 1:
Start Time: Jul 22, 2025 00:08 AM End Time: Jul 22, 2025 01:37 AM
Recording Technique: This EEG was obtained using a 10 lead, 8 channel system positioned circumferentially without any parasagittal coverage (rapid EEG). Computer selected EEG is reviewed as well as background features and all clinically significant
events. Clarity algorithm utilized and implemented to provide analysis of underlying activity and seizure detection used to facilitate reading. ICD-10 Code [id number]
Clinical History: ILIANA SCANLON is a 84 year old Ischemic Stroke patient undergoing EEG to screen for non-convulsive status epilepticus.
--- NOTE | 2025-07-22 15:33 | CM ---
Initial assessment completed with with son and daughter in room. Patient lives with her in a 2 story plus basement split level home with 5 steps to upper level and 7 to lower level, 1 step to enter the home through garage. B/B on
upper and 1/2 bath on lower level. [employer] patient was independent in ADL's and ambulation with SPC. She also has a RW which she uses occasionally and a commode and RTS. No in-home services. Does have HC-POA. No VA benefits. No psychiatric
hospitalizations. PCP is Dr. Magalis Julian. Pharmacy is [facility] on [facility] in [place]. Discharge POC: TBD. Await therapy eval and rec.
[2025-07-22] MEDS: NSS 1000 IV (17:34)
--- NOTE | 2025-07-22 18:33 | PTCARENOTE ---
pt taken to MRI at 1630 while moving pt to MRI table she opened her eyes and was responding appropriately to verbal commands , NIHSS now 2 , she is drowsy and has some slurred speech , Precedex is now off at 1700 , family is at bedside
--- NOTE | 2025-07-22 19:08 | PTCARENOTE ---
MRI results given to Acute Care AUTOMOTIVE SERVICE CONSULTANT
--- NOTE | 2025-07-22 20:00 | PTCARENOTE ---
Assumed care of patient. NIH done with off-going nurse, see separate NIH charting. Patient is disoriented and drowsy, but does follow commands. Her pupils are equal and reactive. She is afebrile. She moves all of her extremities equally. Patient is
in normal sinus rhythm with adequate blood pressures (143/61). No edema, pulses are palpable. Lungs are diminished in the bases, on 2L NC. Abdomen is soft, nontender, bowel sounds present. Ray catheter in place draining concentrated yellow urine.
Skin is c/d/i, IV sites c/d/i.
[2025-07-23] VITALS (56 sets, daily range): BP systolic 106–178; BP diastolic 47–138; PULSE 82–84; O2SAT 95; BMI 27.3
--- NOTE | 2025-07-23 00:09 | PTCARENOTE ---
Patient brought to CT scan and returned without incident. Neuro status is the same, Q4 checks being performed. No changes in assessment.
--- NOTE | 2025-07-23 04:00 | PTCARENOTE ---
No changes in neuro status.
[2025-07-23 04:09] LABS: Hematocrit 38.8 % (37.0-47.0); Hemoglobin 12.9 g/dL (12.0-16.0); Mean Corp Hgb Conc. 33.2 g/dL (33.0-37.0); Mean Corpuscular Volume 89.8 fL (81.0-99.0); Platelet Count 151 10^3/uL (130-400); Red Cell Dist. Width 13.2 % (11.5-14.5)
[2025-07-23 04:39] LABS: Blood Urea Nitrogen 14 mg/dl (7-17); Calcium 9.1 mg/dl (8.4-10.2); Carbon Dioxide 28 mmol/L (22-30); Chloride 106 mmol/L (98-107); Estimated Creatinine Clearance 61 ml/min; Glucose 96 mg/dl (70-99); Magnesium 2.0 mg/dl (1.6-2.3); Potassium 3.6 mmol/L (3.5-5.1); Sodium 141 mmol/L (135-145); eGFR > 60.00
[2025-07-23 05:29] LABS: Vitamin B12 821 pg/ml (239-931)
[2025-07-23] MEDS: NSS 1000 IV ×2 (06:11→18:12)
[2025-07-23] MEDS: KEPPRA 500 MG IV ×2 (07:33→19:33)
--- NOTE | 2025-07-23 08:00 | PTCARENOTE ---
Patient received from caustic cresylate shift superintendent. NIHSS 3, has some slurring and confusion to time. Patient is on 2L nasal cannula. Is sinus rhythm in 80s on monitor. Patient is NPO, has patterson, will discontinue. Will review orders and maintain safe
environment.
--- NOTE | 2025-07-23 08:21 | W.PN.HOSP.TC ---
Today's Communication/Plan
-
see bold
Assessment / Plan
Assessment / Plan
HPI: 84-year-old female was last seen approximate 2 PM this afternoon by her when she asked her to check her blood pressure. He notes she had difficulty moving her right arm getting it out of her robe. She started to have trouble
speaking but then speech became clear. He called his son over to the house who noticed that she was not responding as normal she had right sided facial droop. Upon EMS arrival she was found to exhibit left preferential gaze unable to follow verbal
commands. Stroke alert was called was determined by stroke fellow patient received TNK. Her states yesterday she was complaining of headache and did take Excedrin. According to ER nurse upon arrival patient was unresponsive but restless
moving all of her extremities in bed shoulders arms legs head but was unable to open eyes follow commands. She received Versed 4 mg, IV Ativan, Keppra 4000 mg and is still restless. Her family states she does have some baseline movement disorder
of her arms and legs but never to this degree. She does not have fever, diaphoresis, cough, vomiting, diarrhea.
Assessment/plan:
#Acute�subacute stroke with hemorrhagic conversion
#Acute intracranial hemorrhage involving the posterior right parietal lobe
#Acute dysarthria
#Acute right facial droop
Status post TNK in the ED 07/21
Neurology following, continue post TNA protocol
1. Monitor NIHSS and neurologic checks
2. Cardene drip for goal SBP less than 140
3. Brain MRI & echo reviewed
4. LDL 56, HgA1C 5.3. Resume statin
5. Hold antiplatelet anticoagulation and any DVT pharmacologic prophylaxis until cleared by neurology
6. Speech, physical, occupational therapies
#Acute toxic metabolic encephalopathy
Status post Precedex drip
ABG's reviewed, patient is not hypercapnic
B12/TSH normal
Improving, continue supportive care
#Flailing extremities concerning for seizure activity
Family reports that patient has a baseline movement disorder of her arms and legs, but this has worsened in severity since being in the hospital
Ceribell negative for seizures
Appreciate neurology input, for EEG today
Continue IV Keppra
#Essential hypertension
Holding valsartan�hydrochlorothiazide
Cardene drip for goal SBP less than 140, PRN hydralazine
#Prolonged QTc
QTc upon admission 545 ms, QTc now normal
#Hyperlipidemia
Resume statin
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
#History of Gilbert's syndrome
#History of breast cancer 1997
Status post right lumpectomy, chemo, radiation
DVT prophylaxis�SCDs
Full code
Updated daughter at bedside 07/22
Total time spent to see the patient on the floor, examine the patient, review data and lab results, discuss treatment plan with patient, nursing staff around 51 minutes.
Physical Exam
General: Awake, alert, no acute distress
HEENT: Normocephalic, Atraumatic
Respiratory: Clear to Auscultation bilaterally
Cardiac: Normal S1/S2, Regular Rate and Rhythm
GI: Soft, Nontender, Nondistended, Normal Bowel Sounds
Extremities: No Clubbing, Cyanosis, or Edema
Neuro: Mild dysarthria noted
Psych: Calm/cooperative
Anticipated Discharge: > 48 hours
Subjective/Interval History
-
Date of Service: July 22, 2025
Patient alert and awake today. Her confusion resolved. She is asking to eat. She complains of a headache. Denies chest pain, denies shortness of breath. No fever, no vomiting.
Objective Data
-
Labs:
Laboratory Results
07/22/25 07/22/25 07/22/25
04:44 04:45 05:17
WBC 11.0 H
Hgb 14.5
Hct 44.9
Plt Count 150
PT 14.7 H
INR 1.12
APTT 22.9 L
HCO3 Cancelled
Sodium 137
Potassium 4.5
Chloride 103
Carbon Dioxide 28
BUN 12
Creatinine 0.5 L
Glucose 118 H
Calcium 9.6
07/22/25
11:23
WBC
Hgb
Hct
Plt Count
PT
INR
APTT
HCO3 28.3 H
Sodium
Potassium
Chloride
Carbon Dioxide
BUN
Creatinine
Glucose
Calcium
Vital Signs:
Vital Signs
Temp Pulse Resp BP Pulse Ox
100 F 55 14 126/55 97
07/22/25 15:00 07/22/25 14:40 07/22/25 14:40 07/22/25 14:30 07/22/25 14:40
I&O
07/21/25 07/22/25 07/23/25
06:59 06:59 06:59
Intake Total 411.2 / 418.0 44.2 / 44.2
Output Total 1050 / 1050 300 / 300
Balance -638.8 / -632.0 -255.8 / -255.8
--- NOTE | 2025-07-23 08:36 | W.PN.INTV ---
Today's Communication / Plan
Recommendations
EEG today
Enalaprilat IV Q6
Speech evaluation
Assessment
-
Assessment:
This is an 84 y/o female with pmhx of migraines, right carotid enderectomy in 2022, essential hypertension, Gilbert�s syndrome, osteoarthritis, who presented to the ED on 07/21/2025 via EMS after onset of abnormal motions of her arm and face,
garbled speech and altered mental status who was administered TNK in the ED
Plan:
Altered Mental Status s/p TNK
Subacute Infarct of the right parieto-occipital region
New Hematoma of the right parietal lobe
Patient with sudden onset of abnormal motions in her arm, grimacing in her face, garbled speech and then altered mental status
Differential diagnosis includes seizures, acute CVA
S/p TNK, 400mg Keppra IV in the ED, IV Ativan, IV labetalol
CT Head 07/21: No acute abnormalities
CTA Head/Neck 07/21: Exam severely limited by motion artifact. There is no evidence for high-grade stenosis or large vessel occlusion involving the M1 portions of the middle cerebral arteries bilaterally.
MRI Brain 07/22: Small nonhemorrhagic acute/subacute infarct in the right parieto-occipital region. There is an intraparenchymal hematoma within the posterior high right parietal lobe measuring 2.0 x 2.0 x 2.0 cm, with surrounding vasogenic edema.
No midline shift or herniation.
CT Head 07/22: There is a round focus of acute intracranial hemorrhage involving the posterior right parietal lobe, corresponding to the finding on earlier MRI of the brain.
Neurology is following, will appreciate their insight
No longer on Precedex drip
EEG will be completed today
Continue Keppra 500mg IV in the meantime
Speech to see for swallow evaluation. Continue NPO in the meantime
Continue neurochecks per protocol
Will monitor
Involuntary Movements
Apparently chronic
Recommend outpatient follow up
Essential Hypertension
Control BP more tightly now that we are >24 hours following TNK administration
Ordered Enalaprilat IV Q6
Subjective Dataa
Subjective Data
Date of Service:
Date of Service: July 23, 2025
Chief Complaint: Floor Director Follow Up
Subjective:
Patient was awake when I entered the room. She answered questions appropriately. She reports some headache. She otherwise is free of pain, shortness of breath, numbness or tingling. She continues to experience some involuntary movements of her
extremities, which her family say are baseline for her and began several years ago. They have not increased since that time in intensity, but also they report these motions have not been evaluated or worked up by a physician.
Review of Systems
General: Fever (Denies) and Chills (Denies)
Cardiopulmonary: Dyspnea (Denies), Cough (Denies) and Chest Pain (Denies)
GI: Abdominal Pain (Denies)
Neuro: Headache (Denies), Numbness (Denies) and Weakness (Denies)
Objective Data
Data Reviewed
Vital Signs / I&O / Oxygen:
Vital Signs
Temp Pulse Resp BP Pulse Ox
98.3 F 76 16 158/76 97
07/23/25 07:28 07/23/25 06:00 07/23/25 06:00 07/23/25 06:00 07/23/25 06:00
Intake and Output
07/22/25 07/23/25 07/24/25
06:59 06:59 06:59
Intake Total 411.2 / 418.0 1037.8 / 1112.8 150 / 150
Output Total 1050 / 1050 880 / 880
Balance -638.8 / -632.0 157.8 / 232.8 150 / 150
SaO2 97
Nasal Cannula flow liters per 2
minute
Physical Exam
General: Comfortable and Other (Occasional involuntary movements of the upper extremities that resolve while she sleeps)
HEENT: Normocephalic
Cardiovascular: S1-S2 and Regular Rhythm
Respiratory: Clear
Neurology: Awake and Alert
Skin: Warm, Dry and Good Color
Labs/Micro/Reports
Lab Data
07/23/25 03:44
07/23/25 03:44
Laboratory Results
07/22/25
11:23
pH 7.48 H
pCO2 38 H
pO2 96
HCO3 28.3 H
O2 Delivery Level
--- NOTE | 2025-07-23 09:59 | PTCARENOTE ---
neurology here to assess patient. reviewed MRI results with patient's son. because of small bleed, would like SBP<140. ICU/hospitalist to manage. Patient is more awake, oriented. will have speech evaluate.
[2025-07-23] MEDS: VASOTEC 0.625 MG IV (10:49)
--- NOTE | 2025-07-23 11:17 | PTCARENOTE ---
Notified neurology that patient's left eye appeared to be more deviated towards the center. patient also became more confused. Had started cardene infusion to keep SBP<140. EEG had been completed and family present at bedside.
[2025-07-23] MEDS: CARDENE 200 IV (11:51)
--- NOTE | 2025-07-23 12:45 | EEG.RPT ---
Electroencephalogram Report
Recording
Date of EE07/23/25
Type of EEG: Routine
Length of EEG recordin minutes
Patient Status: Inpatient
Recording Conditions: Awake and Drowsy
Hyperventilation Performed: No
Photic Stimulation Performed: Yes
Report
Methods;
A 21 channel digitized routine EEG was performed. The 10-20 International system of electrode placement was used. ECG was monitored. Video was recorder.
EEG interpretation:
The posterior dominant rhythm reached up to 9 Hz when fully awake, however, for the most part of the study the posterior dominant rhythm stayed at around 6 to 7 Hz.
The background rhythm showed mild diffuse slowing which was more pronounced in the right hemisphere as compared to the left hemisphere.
Drowsiness was seen that caused further slowing of the background activity.
Hyperventilation was not performed
Photic stimulation did not produce any abnormal change.
There was no epileptiform activity seen.
Clinical correlation:
This is a mildly abnormal EEG due to the bihemispheric slowing, right more than the left side. There was no definite epileptiform activity seen. This EEG can suggest mild encephalopathy. Clinical correlation is recommended.
--- NOTE | 2025-07-23 12:49 | W.PN.NEURO.1 ---
Addendum entered and electronically signed by Lorenzo Knutson MD 07/23/25 21:06:
The patient was seen and examined along with the nurse practitioner Dixie Julien, and I agree with her assessment and the management plan. Given below is my addendum.
The patient is an 84-year-old female who approximately at 2 PM on 07/21/2025, was noted by the family to have difficulty in moving her right arm along with some trouble in speaking. She was also reported to have a right-sided facial droop. Upon
arrival of the EMS, she was found to show a left-sided gaze preference and was unable to follow verbal commands. Stroke alert was called and the patient received TNK. The patient was agitated and restless in the ER and she received 4 mg of Versed,
intravenous Ativan, and 4000 mg of Keppra, but she still was restless.
. MRI of the brain was done that showed small nonhemorrhagic acute/subacute infarct in the right parieto-occipital region. There is an intraparenchymal hematoma within the posterior high right parietal lobe measuring 2.0 x 2.0 x 2.0 cm, with
surrounding vasogenic edema. No midline shift or herniation.
. The CT of the head showed a focal area of encephalomalacia involving the right parietal lobe and extending to the junction with the superior right occipital lobe in the posterior and superior right temporal lobe, stable from previous examination,
and likely from an old area of infarction. CT of the head did not show any acute intracranial abnormality.
. The CTA of the head and neck did not show a large vessel occlusion.
. A repeat CT of the head was done that showed round focus of acute intracranial hemorrhage involving the posterior right parietal lobe.
. Routine EEG was done today that did not show epileptiform activity, however it showed mild diffuse slowing which can suggest encephalopathy.
. At this time the patient is on Keppra 500 mg twice a day.
. On neurologic examination, the patient is alert and is oriented to self and person. She does not have any gross focal weakness and her speech is clear.
. Seizure precautions.
. I had a detailed discussion with the patient's son along with other family members, regarding the assessment and the management plan, and they verbalized understanding of our discussion.
. The plan is to keep systolic blood pressure < 140 and hold antiplatelet medications. The plan is to repeat a CT of the head in the morning.
Original Note:
Today's Communication / Plan
-
.
Neuro Assessment/Plan
Assessment
The patient is an 84-year-old female who approximately at 2 PM on 07/21/2025, was noted by the family to have difficulty in moving her right arm along with some trouble speaking. She was also reported to have a right-sided facial droop. Upon
arrival of the EMS, she was found to show a left gaze preference and was unable to follow verbal commands. Stroke alert was called and the patient received TNK. The patient was agitated and restless in the ER and she received 4 mg of Versed,
intravenous Ativan, and 4000 mg of Keppra, but she still was restless.
-CT head 07/22/25: There is a round focus of acute intracranial hemorrhage involving the posterior right parietal lobe, corresponding to the finding on earlier MRI of the brain.
-MRI of the brain 07/22/25: There is a small nonhemorrhagic acute/subacute infarct in the right parieto-occipital region. There is an intraparenchymal hematoma within the posterior high right parietal lobe measuring 2.0 x 2.0 x 2.0 cm, with
surrounding vasogenic edema. No midline shift or herniation.
-CT head 07/21/25: There is focal area of encephalomalacia involving the right parietal lobe and extending to the junction with the superior right occipital lobe in the posterior and superior right temporal lobe, stable from previous examination,
and likely from an old area of infarction. CT of the head did not show any acute intracranial abnormality.
-CTA of the head and neck did not show a large vessel occlusion.
-EEG 07/23/25: This is a mildly abnormal EEG due to the bihemispheric slowing, right more than the left side. There was no definite epileptiform activity seen. This EEG can suggest mild encephalopathy.
-TTE 07/23/25: EF 63%. Left atrium is mildly enlarged.
I. 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
II. Stroke-like symptoms; aphasia, right facial drooping, left gaze preference s/p TNK complicated by hemorrhagic conversion. Concern for presenting symptoms being seizure activity in the setting of subacute/old stroke given gaze preference to the
left, which is away from the area of old infarct.
III. Chronic generalized dyskinesias.
Plan
-Continue to hold antiplatelet medications. Okay to initiate DVT prophylaxis.
-SBP goal <140.
-Continue Keppra 500mg twice a day.
-Recommend 30 day Holter monitor on discharge, if this is normal would consider ILR as old stroke appears embolic.
-LDL goal <70. LDL goal is 56. Continue home rosuvastatin 20mg daily as LDL is at goal.
-Goal normoglycemia, hbA1c is 5.3.
-NIHSS and neurological checks per unit guidelines.
-Provide patient's family with a stroke education packet.
-PT/OT/ST Evaluations.
-Follow-up with movement specialist as an outpatient regarding chronic dyskinesias.
Subjective/Objective
Subjective Data
Date of Service: July 23, 2025
Patient with fluctuating levels of confusion. Ongoing chronic generalized dyskinesias.
Objective Data
Vital Signs
Temp Pulse Resp BP Pulse Ox
98.5 F 79 19 122/59 94
07/23/25 11:24 07/23/25 12:31 07/23/25 12:31 07/23/25 12:31 07/23/25 12:31
Lab Results
07/23/25 03:44
07/23/25 03:44
PT 14.7 Sec (11.4-14.6) H 07/22/25 04:45
INR 1.12 07/22/25 04:45
APTT 22.9 Sec (23.4-35.0) L 07/22/25 04:45
Sodium 141 mmol/L (135-145) 07/23/25 03:44
Potassium 3.6 mmol/L (3.5-5.1) 07/23/25 03:44
BUN 14 mg/dl (7-17) 07/23/25 03:44
Glucose 96 mg/dl (70-99) 07/23/25 03:44
Calcium 9.1 mg/dl (8.4-10.2) 07/23/25 03:44
Phosphorus 2.9 mg/dl (2.5-4.5) 07/23/25 03:44
LDL Cholesterol, Calc 56 mg/dl 07/22/25 04:44
Vitamin B12 821 pg/ml (239-931) 07/23/25 03:44
Patient Allergies
atorvastatin Allergy (Verified 05/21/23 07:28)
MUSCLE CRAMPS
pollen extracts Allergy (Verified 05/21/23 12:41)
congestion/sneezing
raloxifene (From Evista) Allergy (Verified 05/21/23 07:28)
Hives
strawberry Allergy (Verified 05/21/23 07:28)
Hives
LDL Level: <70, continue statin
Review of Systems
-
History Source: Patient
Neuro: Tremors; Negative Dizzy, Headache, Weakness, Numbness, Ataxia or Speech Problem
Physical Exam
-
General: No Apparent Distress
Eyes: No Ptosis and PERRLA
HEENT: Normocephalic
Neck: Full Range of Motion
GI: Non-distended
Psych: Confused
Extended Neurological Exam
Mood & Affect: Mood Unremarkable and Affect Unremarkable
Attention Span & Concentration: Awake, Alert, Interactive and Closes Eyes after Stimulation
Memory: Reduced
Involuntary Movement: Other (generalized dyskinesias)
Speech: Quality Unremarkable, Quantity Unremarkable and Rate of Production Unremarkable
Cranial Nerve II: Left Eye: Visual [place] Reduced (left homonymous hemianopsia)
Cranial Nerve II: Right Eye: Visual [place] Reduced (left homonymous hemianopsia)
Cranial Nerves III, IV, : Extraocular Movement: Reduced (incomplete burial to the left)
Cranial Nerve VII: Facial Symmetry: Normal Facial Symmetry
Cranial Nerve VIII: Hearing: Unremarkable Hearing to Normal Conversational Volume
Cranial Nerve XII: Tongue Protusion: Midline
Muscle Strength, Overall: Full Throughout
Pronator Drift: No Drift in Upper Extremities and No Drift in Lower Extremities
Touch Sensation: Double Simultaneous Stimulation Absent (left sided neglect)
Coordination: Oocoky-izho-lddnbh Testing Unremarkable
Modified Rockwood Score (MRS)
-
Modified Sergio Scale (mRS): Moderately severe disability. Unable to attend to bodily needs/walk.
Score: 4
Data Reviewed
-
CT-A: Report Reviewed and Image Reviewed
CT Head: Report Reviewed and Image Reviewed
MRI Head: Report Reviewed and Image Reviewed
EEG: Report Reviewed
Labs: Report Reviewed
Lipid Profile: Report Reviewed
HgbA1C: Report Reviewed
Reviewed with: Physician, Patient and Family
Intracerebral Hemorrhage Score
-
Glascow Coma Score: 13-15
Age Greater Than Or Equal To 80: Yes
ICH Volume > Or = 30 mL: Yes
Intraventricular Hemorrhage: Yes
Infratentorial Origin of Hemorrhage: No
Score: 3
Medications
-
Active Medications
Generic Name Dose Route Start Last Admin
Trade Name Freq PRN Reason Stop Dose Admin
Enalaprilat 0.625 mg 07/23/25 11:00 07/23/25 13:22
Enalaprilat 1.25 Mg/Ml Vial IV 08/20/25 10:59 Not Given
Q6 STEPHANIE
Hydralazine HCl 5 mg 07/22/25 10:56
Hydralazine 20 Mg/Ml Vial IV 08/19/25 10:55
Q6HPRN PRN
SBP>180mmHg; hold if HR>95
Sodium Chloride 1,000 mls @ 75 mls/hr 07/22/25 16:30 07/23/25 06:11
Nss IV 1,000 mls
.[id number] STEPHANIE Administration
Acetaminophen 1,000 mg in 100 mls @ 400 mls/hr 07/23/25 08:11
Ofirmev IV 07/24/25 08:10
Q6HPRN PRN
Headache/Mild Pain/Fever>100.4
Protocol
Nicardipine/Sodium Chloride 40 mg in 200 mls @ 0 mls/hr 07/23/25 11:30 07/23/25 11:51
Cardene IV 200 mls
PER PROTOCOL STEPHANIE Administration
Protocol
Per Protocol
Levetiracetam 500 mg 07/22/25 08:00 07/23/25 07:33
Levetiracetam (100 Mg/Ml) 500 Mg/5 Ml Vial IV 08/19/25 07:59 500 mg
Q12 STEPHANIE Administration
Sodium Chloride 0 flush 07/21/25 20:00
Sodium Chloride 0.9% (Flush) Syringe IV 08/18/25 19:59
PER PROTOCOL STEPHANIE
Home Medications
�Medication �Instructions �Recorded
ascorbic acid (vitamin C) 500 mg 500 mg PO DAILY Supplement 05/21/23
tablet (Vitamin C)
calcium 600 mg (as carbonate)-vit 1 tab PO DAILY Supplement 05/21/23
D3 20 mcg (800 unit) chewable
tablet (Caltrate plus D)
valsartan 320 1 tab PO DAILY Blood Pressure 05/21/23
mg-hydrochlorothiazide 12.5 mg
tablet
qxxvkdq-bbgqjpozqzehc-duyzxntc 250 1 tab PO DAILYPRN PRN headaches 07/21/25
mg-250 mg-65 mg tablet (Excedrin
Extra Strength)
carboxymethylcellulose sodium 0.5 1 drp BOTH EYES BIDPRN PRN dryness 07/21/25
% eye drops (Refresh Tears)
latanoprost 0.005 % eye drops 1 drp BOTH EYES HS Eye Condition 07/21/25
rosuvastatin 20 mg tablet (Crestor) 20 mg PO DAILY High Cholesterol 07/21/25
[2025-07-23] MEDS: VASOTEC IV (13:22)
--- NOTE | 2025-07-23 13:30 | PTCARENOTE ---
Dr. Knutson present at bedside, stated that BP should be between 140-150. Cardene gtt turned off. Patient also evaluated by Dr. Ortiz. Patient has also been seen by speech and was cleared for diet with thins liquids.
--- NOTE | 2025-07-23 14:59 | CM ---
NPO, Speech eval, EEG today showed mild abnormality indicative of mild encephalopathy. IV/Keppra, IV/Vasotec. Discharge POC: Await therapy eval and recs.
--- NOTE | 2025-07-23 16:01 | PTCARENOTE ---
was able to stand briefly and with heavy assist with PT OT. Required repetitive cuing with tasks but able to follow. Cardene weaned off as pressure low. Will continue to monitor. Bladder scanned for 330 as patient had not voided since patterson
removal. straight cathed. Ongoing neuro assessments, close BP monitoring.
[2025-07-23] MEDS: DIOVAN 80 MG PO (18:08)
[2025-07-23] MEDS: CRESTOR 20 MG PO (18:09)
[2025-07-23] MEDS: XALATAN OPHTHALMIC SOLUTION 1 DROP BOTH EYES (19:33)
--- NOTE | 2025-07-23 20:00 | PTCARENOTE ---
Assumed care of patient. NIH completed with off-going nurse, see NIH charting. Patient is drowsy but arouses to verbal stimuli. She is oriented to self and time, not oriented to place, she says she is at home. She is afebrile. She moves all
extremities and follows simple commands. Her pupils are equal and reactive. She is in NSR with blood pressures mostly 140 systolic. Patient has jerky movements at rest making it difficult to get accurate blood pressure readings. No edema noted,
pulses are all palpable. Lungs are diminished in the bases, on 2L NC. Abdomen is soft and nontender, bowel sounds present. Patient is incontinent of urine. Skin is c/d/i. IV sites are c/d/i.
[2025-07-24] VITALS (27 sets, daily range): BP systolic 115–175; BP diastolic 50–125; PULSE 65–69; BMI 28.0
--- NOTE | 2025-07-24 00:27 | PTCARENOTE ---
Patient's blood pressure up to 160-180 systolic. Cardene restarted for goal systolic of 140-150. No other changes in assessment.
[2025-07-24 03:38] LABS: Hematocrit 38.3 % (37.0-47.0); Hemoglobin 12.4 g/dL (12.0-16.0); Mean Corp Hgb Conc. 32.4 g/dL (33.0-37.0); Mean Corpuscular Volume 91.2 fL (81.0-99.0); Platelet Count 145 10^3/uL (130-400); Red Cell Dist. Width 13.0 % (11.5-14.5)
[2025-07-24 03:55] LABS: Blood Urea Nitrogen 9 mg/dl (7-17); Calcium 8.9 mg/dl (8.4-10.2); Carbon Dioxide 26 mmol/L (22-30); Chloride 103 mmol/L (98-107); Estimated Creatinine Clearance 61 ml/min; Glucose 98 mg/dl (70-99); Potassium 3.2 mmol/L (3.5-5.1); Sodium 133 mmol/L (135-145); eGFR > 60.00
[2025-07-24 03:56] LABS: Ammonia 10 umol/L (9-30)
[2025-07-24] MEDS: KCL 270 MEQ IV (04:37)
--- NOTE | 2025-07-24 08:05 | W.PN.INTV ---
Today's Communication / Plan
Recommendations
Changed Keppra IV to PO
Valsartan 320mg
Replete K
Recommend downgrade today
Will discuss anticoagulation with primary team
Assessment
-
Assessment:
This is an 84 y/o female with pmhx of migraines, right carotid enderectomy in 2022, essential hypertension, Gilbert�s syndrome, osteoarthritis, who presented to the ED on 07/21/2025 via EMS after onset of abnormal motions of her arm and face,
garbled speech and altered mental status who was administered TNK in the ED
Plan:
Altered Mental Status s/p TNK
Subacute Infarct of the right parieto-occipital region
New Hematoma of the right parietal lobe
Patient with sudden onset of abnormal motions in her arm, grimacing in her face, garbled speech and then altered mental status
Differential diagnosis includes seizures, acute CVA
S/p TNK, 400mg Keppra IV in the ED, IV Ativan, IV labetalol
CT Head 07/21: No acute abnormalities
CTA Head/Neck 07/21: Exam severely limited by motion artifact. There is no evidence for high-grade stenosis or large vessel occlusion involving the M1 portions of the middle cerebral arteries bilaterally.
MRI Brain 07/22: Small nonhemorrhagic acute/subacute infarct in the right parieto-occipital region. There is an intraparenchymal hematoma within the posterior high right parietal lobe measuring 2.0 x 2.0 x 2.0 cm, with surrounding vasogenic edema.
No midline shift or herniation.
CT Head 07/22: There is a round focus of acute intracranial hemorrhage involving the posterior right parietal lobe, corresponding to the finding on earlier MRI of the brain.
EEG 07/23: This is a mildly abnormal EEG due to the bihemispheric slowing, right more than the left side. There was no definite epileptiform activity seen. This EEG can suggest mild encephalopathy.
CT Head 07/24: Focus of parenchymal hemorrhage within the right posterior parietal lobe, grossly unchanged in size compared to prior CT, allowing for differences in measurement technique. Adjacent vasogenic edema. No new abnormality appreciated.
Neurology is following, will appreciate their insight
Currently on Keppra 500mg IV, will change to PO
Speech evaluation 07/23: Minced and Moist.
Will monitor
Involuntary Movements
Apparently chronic
Recommend outpatient follow up
Hypokalemia
Potassium today 3.2
S/p repletion with 40meq this AM
Add 40meq KCl again
Follow BMP
Essential Hypertension
Control BP more tightly now that we are >24 hours following TNK administration
Continue hydralazine 5mg PRN Q6h for SBP <140
Increase Valsartan to 320mg daily
Now off of cardene drip
Subjective Dataa
Subjective Data
Date of Service:
Date of Service: July 24, 2025
Chief Complaint: [employer]che Operator Follow Up
Subjective:
Staff report no overnight events.
Patient was sitting comfortably in bed with sons at bedside. She was eating breakfast when I arrived without any obvious motor difficulties. She is answering all questions appropriately and was able to recognize her sons. She states she is feeling
very well today. She was not able to initially tell me where she was, but upon being told she was in a Hospital she did remember it was [facility]. Her sons state yesterday her memory had been somewhat fluctuant as she sometimes confuses
the hospital for being at home, but today it is closer to her baseline than yesterday.
Review of Systems
General: Fever (Denies), Chills (Denies) and Satisfactory Appetite
Cardiopulmonary: Dyspnea (Denies) and Chest Pain (Denies)
GI: Abdominal Pain (Denies) and Nausea (Denies)
Neuro: Headache (Denies), Numbness (Denies) and Weakness (Denies)
Objective Data
Data Reviewed
Vital Signs / I&O / Oxygen:
Vital Signs
Temp Pulse Resp BP Pulse Ox
98.3 F 72 16 156/73 98
07/23/25 20:00 07/24/25 06:00 07/24/25 06:00 07/24/25 06:00 07/24/25 06:00
Intake and Output
07/23/25 07/24/25 07/25/25
06:59 06:59 06:59
Intake Total 1037.8 / 1112.8 2026.5 / 2025.5
Output Total 880 / 880 550 / 550
Balance 157.8 / 232.8 1476.5 / 1476.5
SaO2 98
Nasal Cannula flow liters per 2
minute
Physical Exam
General: Comfortable and Other (Occasional involuntary movements of the upper extremities that resolve while she sleeps)
HEENT: Normocephalic
Cardiovascular: S1-S2 and Regular Rhythm
Respiratory: Clear
Neurology: Awake and Alert
Skin: Warm, Dry and Good Color
Labs/Micro/Reports
Lab Data
07/24/25 03:13
07/24/25 03:13
--- NOTE | 2025-07-24 08:24 | PTCARENOTE ---
- 0700 assumed care; patient in bed; NIH done at change of shift, no change noted from Previous shift. denies chest pain; denies SOB
CT results pending;
-patient awake to person and time; disoriented to place; No motor skills deficit noted ; pupils reactive to light
-BP 161/125; Normal Sinus Rhythm 73;
[2025-07-24] MEDS: KEPPRA 500 MG IV (08:32)
[2025-07-24] MEDS: DIOVAN 160 MG PO ×2 (08:33→12:07)
--- NOTE | 2025-07-24 08:56 | W.PN.HOSP.TC ---
Addendum entered and electronically signed by Castillo Gamez MD 07/24/25 15:39:
#Hypokalemia
Repleted, recheck a.m. labs
#Hyponatremia
Mild, monitor
Original Note:
Today's Communication/Plan
-
Stable for telemetry
Assessment / Plan
Assessment / Plan
HPI: 84-year-old female was last seen approximate 2 PM this afternoon by her when she asked her to check her blood pressure. He notes she had difficulty moving her right arm getting it out of her robe. She started to have trouble
speaking but then speech became clear. He called his son over to the house who noticed that she was not responding as normal she had right sided facial droop. Upon EMS arrival she was found to exhibit left preferential gaze unable to follow verbal
commands. Stroke alert was called was determined by stroke fellow patient received TNK. Her states yesterday she was complaining of headache and did take Excedrin. According to ER nurse upon arrival patient was unresponsive but restless
moving all of her extremities in bed shoulders arms legs head but was unable to open eyes follow commands. She received Versed 4 mg, IV Ativan, Keppra 4000 mg and is still restless. Her family states she does have some baseline movement disorder
of her arms and legs but never to this degree. She does not have fever, diaphoresis, cough, vomiting, diarrhea.
Assessment/plan:
#Acute�subacute stroke with hemorrhagic conversion
#Acute intracranial hemorrhage involving the posterior right parietal lobe
#Acute dysarthria
#Acute right facial droop
Status post TNK in the ED 07/21
Neurology following, continue post TNA protocol
1. Monitor NIHSS and neurologic checks
2. Resumed home diovan. IV hydralazine prn for goal SBP less than 140
3. Brain MRI & echo reviewed. 07/[address] showed unchanged right posterior lobe intracranial hemorrhage
4. LDL 56, HgA1C 5.3. Resumed statin
5. Start aspirin 81 mg p.o. daily 07/24 as per neurology, hold DVT prophylaxis
6. Speech, physical, occupational therapies - rec acute rehab
Neurology recommends repeating head CT in 2 days, and starting DVT prophylaxis with Lovenox 07/26
#Acute toxic metabolic encephalopathy
Status post Precedex drip
ABG's reviewed, patient is not hypercapnic
B12/TSH normal
Improving, continue supportive care
#Flailing extremities concerning for seizure activity
Family reports that patient has a baseline movement disorder of her arms and legs, but this has worsened in severity since being in the hospital
Ceribell negative for seizures
Appreciate neurology input, EEG neg for sz
Continue Keppra
#Essential hypertension
Was on valsartan�hydrochlorothiazide YARN DUMPER
Resumed home diovan. IV hydralazine prn for goal SBP less than 140
#Prolonged QTc
QTc upon admission 545 ms, QTc now normal
#Hyperlipidemia
Resumed statin
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
#History of Gilbert's syndrome
#History of breast cancer 1997
Status post right lumpectomy, chemo, radiation
DVT prophylaxis�SCDs
Full code
Updated son at bedside 07/24
Total time spent to see the patient on the floor, examine the patient, review data and lab results, discuss treatment plan with patient, nursing staff around 50 minutes.
Physical Exam
General: Awake, alert, no acute distress
HEENT: Normocephalic, Atraumatic
Respiratory: Clear to Auscultation bilaterally
Cardiac: Normal S1/S2, Regular Rate and Rhythm
GI: Soft, Nontender, Nondistended, Normal Bowel Sounds
Extremities: No Clubbing, Cyanosis, or Edema
Neuro: Rhythmic jerking of the shoulder noted
Psych: Calm/cooperative
Anticipated Discharge: > 48 hours
Subjective/Interval History
-
Date of Service: July 24, 2025
Objective Data
-
Labs:
Laboratory Results
07/24/25
03:13
WBC 13.7 H
Hgb 12.4
Hct 38.3
Plt Count 145
Sodium 133 L D
Potassium 3.2 L
Chloride 103
Carbon Dioxide 26
BUN 9
Creatinine 0.4 L
Glucose 98
Calcium 8.9
Vital Signs:
Vital Signs
Temp Pulse Resp BP Pulse Ox
98.4 F 75 16 161/125 98
07/24/25 08:00 07/24/25 08:33 07/24/25 06:00 07/24/25 08:33 07/24/25 06:00
I&O
07/23/25 07/24/25 07/25/25
06:59 06:59 06:59
Intake Total 1037.8 / 1112.8 2025. / 2025.
Output Total 880 / 880 550 / 550
Balance 157.8 / 232.8 1476.5 / 1476.5
--- NOTE | 2025-07-24 10:48 | PTOTSP ---
Speech Therapy Update
Pt seen in room for cognitive-communication assessment given acute/subacute stroke. Pt is TRIBAL, therefore, increased vocal volume, close proximity, and enunciation was used to compensate for hearing loss. Pt scored 10/30 on Andre Cognitive
Assessment (MOCA) Version 8.1 yielding deficits in visual/verbal reasoning skill, recall, attention, and language. Pt scored 7.78 on Quick Aphasia Battery (QAB) which is classified as 'mild aphasia.' Pt had more difficulty on sentence comprehension,
word/sentence repetition, and word finding. Pt demonstrates moderate to severe cognitive-communication deficits in attention, recall, and reasoning. Pt presents with mild dysarthria but with adequate speech intelligibility. Mild visual deficits to R
side noted during assessment.
Trials of minced/moist consistency, regular solids, and thin liquids were presented. Pt managed solid consistencies with strict adherence to aspiration precautions (slow rate, small bites, liquid wash) and no overt s/sx of aspiration. No changes in
vocal quality. RR remained the same. Pt is on room air.�
Recommend:
1. Diet upgrade to IDDSI 7 Regular solids and thin liquids with strict adherence to aspiration precautions (small bites, slow rate, liquid wash)
2. D/c oral diet if worsening in respiratory status/chest imaging or if concerned for aspiration
3. Medication as best tolerated�
4. 1:1 assistance and supervision with intake
5. [employer]IL[employer] to closely follow to monitor tolerance of diet of regular solids and thin liquids and to provide cog tx�
6. Speech-language therapy in next level of care�
[2025-07-24] MEDS: KLOR-CON 40 MEQ PO (11:59)
[2025-07-24] MEDS: TYLENOL 650 MG PO (11:59)
[2025-07-24] MEDS: MIRALAX PO (11:59)
[2025-07-24] MEDS: NSS IV (12:15)
[2025-07-24] MEDS: LOW STRENGTH ASPIRIN 81 MG PO (12:19)
--- NOTE | 2025-07-24 14:02 | CM ---
F/U: АЛЕКСАНДР Stewart saw note that patient needs Acute Rehab based on her Dx. АЛЕКСАНДР Stewart spoke to then daughter (Dtr) Luly. Explained the levels SNF vs. Acute, that she has Medicare so no insurance Auth barrier, and both chose [facility]
first than [facility]- referrals made. Case Management to follow up on when patient is ready. PLAN: Acute Rehab when ready.
--- NOTE | 2025-07-24 14:18 | PTCARENOTE ---
OOB chair x 3 hours. Requires assist of 2 with transfers. Incontinent of bladder and bowel
--- NOTE | 2025-07-24 14:54 | W.PN.NEURO.1 ---
Today's Communication / Plan
-
. A repeat CT of the head was done today that showed the intracranial hemorrhage in the right posterior parietal lobe, to be grossly unchanged in size as compared to the prior CT.
. Routine EEG did not show epileptiform activity, however it showed mild diffuse slowing which can suggest encephalopathy.
. On neurologic examination, the patient is more alert today as compared to yesterday, and is oriented to self and person. The patient was sitting in the chair comfortably and was able to communicate well. She was also able to follow verbal
commands well. She does not have any gross focal weakness and her speech is clear.
. Seizure precautions.
. The plan is to start aspirin 81 mg daily.
. Keppra 500 mg twice a day.
. Will repeat a CT head in 2 days and start DVT prophylaxis with Lovenox. For now the patient will be on SCDs.
. The plan is to keep systolic blood pressure < 140.
Neuro Assessment/Plan
Assessment
The patient is an 84-year-old female who approximately at 2 PM on 07/21/2025, was noted by the family to have difficulty in moving her right arm along with some trouble speaking. She was also reported to have a right-sided facial droop. Upon
arrival of the EMS, she was found to show a left gaze preference and was unable to follow verbal commands. Stroke alert was called and the patient received TNK. The patient was agitated and restless in the ER and she received 4 mg of Versed,
intravenous Ativan, and 4000 mg of Keppra, but she still was restless.
-CT head 07/22/25: There is a round focus of acute intracranial hemorrhage involving the posterior right parietal lobe, corresponding to the finding on earlier MRI of the brain.
-MRI of the brain 07/22/25: There is a small nonhemorrhagic acute/subacute infarct in the right parieto-occipital region. There is an intraparenchymal hematoma within the posterior high right parietal lobe measuring 2.0 x 2.0 x 2.0 cm, with
surrounding vasogenic edema. No midline shift or herniation.
-CT head 07/21/25: There is focal area of encephalomalacia involving the right parietal lobe and extending to the junction with the superior right occipital lobe in the posterior and superior right temporal lobe, stable from previous examination,
and likely from an old area of infarction. CT of the head did not show any acute intracranial abnormality.
-CTA of the head and neck did not show a large vessel occlusion.
-EEG 07/23/25: This is a mildly abnormal EEG due to the bihemispheric slowing, right more than the left side. There was no definite epileptiform activity seen. This EEG can suggest mild encephalopathy.
-TTE 07/23/25: EF 63%. Left atrium is mildly enlarged.
I. 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
II. Stroke-like symptoms; aphasia, right facial drooping, left gaze preference s/p TNK complicated by hemorrhagic conversion. Concern for presenting symptoms being seizure activity in the setting of subacute/old stroke given gaze preference to the
left, which is away from the area of old infarct.
III. Chronic generalized dyskinesias.
Plan
-Continue to hold antiplatelet medications. Okay to initiate DVT prophylaxis.
-SBP goal <140.
-Continue Keppra 500mg twice a day.
-Recommend 30 day Holter monitor on discharge, if this is normal would consider ILR as old stroke appears embolic.
-LDL goal <70. LDL goal is 56. Continue home rosuvastatin 20mg daily as LDL is at goal.
-Goal normoglycemia, hbA1c is 5.3.
-NIHSS and neurological checks per unit guidelines.
-Provide patient's family with a stroke education packet.
-PT/OT/ST Evaluations.
-Follow-up with movement specialist as an outpatient regarding chronic dyskinesias.
Subjective/Objective
Subjective Data
Date of Service: July 24, 2025
The patient is an 84-year-old female who approximately at 2 PM on 07/21/2025, was noted by the family to have difficulty in moving her right arm along with some trouble in speaking. She was also reported to have a right-sided facial droop. Upon
arrival of the EMS, she was found to show a left-sided gaze preference and was unable to follow verbal commands. Stroke alert was called and the patient received TNK. The patient was agitated and restless in the ER and she received 4 mg of Versed,
intravenous Ativan, and 4000 mg of Keppra, but she still was restless.
. MRI of the brain was done that showed small nonhemorrhagic acute/subacute infarct in the right parieto-occipital region. There is an intraparenchymal hematoma within the posterior high right parietal lobe measuring 2.0 x 2.0 x 2.0 cm, with
surrounding vasogenic edema. No midline shift or herniation.
. The CT of the head showed a focal area of encephalomalacia involving the right parietal lobe and extending to the junction with the superior right occipital lobe in the posterior and superior right temporal lobe, stable from previous examination,
and likely from an old area of infarction. CT of the head did not show any acute intracranial abnormality.
. The CTA of the head and neck did not show a large vessel occlusion.
. A repeat CT of the head was done today that showed the intracranial hemorrhage in the right posterior parietal lobe, to be grossly unchanged in size as compared to the prior CT.
. Routine EEG did not show epileptiform activity, however it showed mild diffuse slowing which can suggest encephalopathy.
. On neurologic examination, the patient is more alert today as compared to yesterday, and is oriented to self and person. The patient was sitting in the chair comfortably and was able to communicate well. She was also able to follow verbal
commands well. She does not have any gross focal weakness and her speech is clear.
. Seizure precautions.
. The plan is to start aspirin 81 mg daily.
. Keppra 500 mg twice a day.
. Will repeat a CT head in 2 days and start DVT prophylaxis with Lovenox. For now the patient will be on SCDs.
. The plan is to keep systolic blood pressure < 140.
. I had a detailed discussion with the patient's son regarding the assessment and the management plan, and he verbalized understanding of our discussion.
Objective Data
Vital Signs
Temp Pulse Resp BP Pulse Ox
37.2 C 69 16 160/72 97
07/24/25 11:48 07/24/25 14:00 07/24/25 14:00 07/24/25 14:00 07/24/25 07:30
Lab Results
07/24/25 03:13
07/24/25 03:13
PT 14.7 Sec (11.4-14.6) H 07/22/25 04:45
INR 1.12 07/22/25 04:45
APTT 22.9 Sec (23.4-35.0) L 07/22/25 04:45
Sodium 133 mmol/L (135-145) L D 07/24/25 03:13
Potassium 3.2 mmol/L (3.5-5.1) L 07/24/25 03:13
BUN 9 mg/dl (7-17) 07/24/25 03:13
Glucose 98 mg/dl (70-99) 07/24/25 03:13
Calcium 8.9 mg/dl (8.4-10.2) 07/24/25 03:13
Phosphorus 2.9 mg/dl (2.5-4.5) 07/23/25 03:44
LDL Cholesterol, Calc 56 mg/dl 07/22/25 04:44
Vitamin B12 821 pg/ml (239-931) 07/23/25 03:44
Patient Allergies
atorvastatin Allergy (Verified 05/21/23 07:28)
MUSCLE CRAMPS
pollen extracts Allergy (Verified 05/21/23 12:41)
congestion/sneezing
raloxifene (From Evista) Allergy (Verified 05/21/23 07:28)
Hives
strawberry Allergy (Verified 05/21/23 07:28)
Hives
[2025-07-24] MEDS: CRESTOR 20 MG PO (16:33)
[2025-07-24] MEDS: KEPPRA 500 MG PO (20:40)
[2025-07-24] MEDS: XALATAN OPHTHALMIC SOLUTION 1 DROP BOTH EYES (20:46)
--- NOTE | 2025-07-24 22:03 | PTCARENOTE ---
Pt. transferred from ICU to [facility] rm [id number]. Bed alarm placed per unit protocol. Pt. AAOx2, confused and forgetful. Tele placed per orders. VSS. NIH 3. Large bruise noted on L forearm with surrounding edema. Purewick removed upon arrival to unit. Call
chilel within reach. Plan of care ongoing.
[2025-07-25] VITALS (9 sets, daily range): BP systolic 120–172; BP diastolic 63–98; BMI 24.8
[2025-07-25 08:04] LABS: Hematocrit 42.7 % (37.0-47.0); Hemoglobin 13.7 g/dL (12.0-16.0); Mean Corp Hgb Conc. 32.1 g/dL (33.0-37.0); Mean Corpuscular Volume 92.4 fL (81.0-99.0); Platelet Count 162 10^3/uL (130-400); Red Cell Dist. Width 12.9 % (11.5-14.5)
[2025-07-25 08:12] LABS: Blood Urea Nitrogen 10 mg/dl (7-17); Calcium 9.1 mg/dl (8.4-10.2); Carbon Dioxide 24 mmol/L (22-30); Chloride 101 mmol/L (98-107); Estimated Creatinine Clearance 61 ml/min; Glucose 95 mg/dl (70-99); Magnesium 2.2 mg/dl (1.6-2.3); Potassium 3.8 mmol/L (3.5-5.1); Sodium 133 mmol/L (135-145); eGFR > 60.00
--- NOTE | 2025-07-25 08:27 | W.PN.HOSP.TC ---
Today's Communication/Plan
-
see bold
Assessment / Plan
Assessment / Plan
HPI: 84-year-old female was last seen approximate 2 PM this afternoon by her when she asked her to check her blood pressure. He notes she had difficulty moving her right arm getting it out of her robe. She started to have trouble
speaking but then speech became clear. He called his son over to the house who noticed that she was not responding as normal she had right sided facial droop. Upon EMS arrival she was found to exhibit left preferential gaze unable to follow verbal
commands. Stroke alert was called was determined by stroke fellow patient received TNK. Her states yesterday she was complaining of headache and did take Excedrin. According to ER nurse upon arrival patient was unresponsive but restless
moving all of her extremities in bed shoulders arms legs head but was unable to open eyes follow commands. She received Versed 4 mg, IV Ativan, Keppra 4000 mg and is still restless. Her family states she does have some baseline movement disorder
of her arms and legs but never to this degree. She does not have fever, diaphoresis, cough, vomiting, diarrhea.
Assessment/plan:
#Acute�subacute stroke with hemorrhagic conversion
#Acute intracranial hemorrhage involving the posterior right parietal lobe
#Acute dysarthria
#Acute right facial droop
Status post TNK in the ED 07/21
Neurology following, continue post TNA protocol
1. Monitor NIHSS and neurologic checks
2. Resumed home diovan. IV hydralazine prn for goal SBP less than 140
3. Brain MRI & echo reviewed. 07/[address] showed unchanged right posterior lobe intracranial hemorrhage
4. LDL 56, HgA1C 5.3. Resumed statin
5. Start aspirin 81 mg p.o. daily 07/24 as per neurology, hold DVT prophylaxis -start when okay with neurology
6. Speech, physical, occupational therapies - rec acute rehab
07/25, RN reported higher NIHSS score. Repeat head CT repeated showing stable right posterior lobe intracranial hemorrhage
Transferred to IMU for closer monitoring
Diet changed to pur�ed with thin liquids as per SPL recommendations
#Acute toxic metabolic encephalopathy
Status post Precedex drip
ABG's reviewed, patient is not hypercapnic
B12/TSH normal
Improving, continue supportive care
#Flailing extremities concerning for seizure activity
#Baseline movement disorder
Family reports that patient has a baseline movement disorder of her arms and legs, but this has worsened in severity since being in the hospital
Ceribell negative for seizures
Appreciate neurology input, EEG neg for seizures
Continue Keppra
#Essential hypertension
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
Resumed home diovan. IV hydralazine prn for goal SBP less than 140
#Hypokalemia
Repleted and resolved
#Hyponatremia
Mild, monitor
#Prolonged QTc
QTc upon admission 545 ms, QTc now normal
#Hyperlipidemia
Resumed statin
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
#History of Gilbert's syndrome
#History of breast cancer 1997
Status post right lumpectomy, chemo, radiation
DVT prophylaxis�SCDs
Full code
Updated son at bedside 07/25
Total time spent to see the patient on the floor, examine the patient, review data and lab results, discuss treatment plan with patient, nursing staff around 52 minutes.
Physical Exam
General: Awake, alert, no acute distress
HEENT: Normocephalic, Atraumatic
Respiratory: Clear to Auscultation bilaterally
Cardiac: Normal S1/S2, Regular Rate and Rhythm
GI: Soft, Nontender, Nondistended, Normal Bowel Sounds
Extremities: No Clubbing, Cyanosis, or Edema
Neuro: Rhythmic jerking of the shoulder noted
Psych: Calm/cooperative
Anticipated Discharge: > 48 hours
Subjective/Interval History
-
Date of Service: July 24, 2025
Notified by nursing that patient had a higher NIHSS. Patient taken urgently to repeat her head CT, showing stabilization of the intracranial hematoma/hemorrhage. She denies headache, denies chest pain, denies shortness of breath. She does have
lower back pain. No fever, no vomiting.
Objective Data
-
Labs:
Laboratory Results
07/24/25
03:13
Sodium 133 L D
Potassium 3.2 L
Chloride 103
Carbon Dioxide 26
BUN 9
Creatinine 0.4 L
Glucose 98
Calcium 8.9
Vital Signs:
Vital Signs
Temp Pulse Resp BP Pulse Ox
98.9 F 69 16 160/72 97
07/24/25 11:48 07/24/25 14:00 07/24/25 14:00 07/24/25 14:00 07/24/25 07:30
I&O
07/23/25 07/24/25 07/25/25
06:59 06:59 06:59
Intake Total 1037.8 / 1112.8 2026. / 2025.5 480 / 480
Output Total 880 / 880 550 / 550
Balance 157.8 / 232.8 1476.5 / 1476.5 480 / 480
--- NOTE | 2025-07-25 08:40 | PTCARENOTE ---
NIH score for this RN=8, no sensation on LUE, LLE, L facial cheek. Mild expressive aphasia, unable to state what cactus was. Slurring and L facial droop observed. Poor peripheral vision. Neuro and hospitalist made aware, hospitalist instructed this
RN to not call rapid response, STAT head CT ordered. Neurologist at bedside. This RN inquired about rapid response again, hospitalist informed this RN to not call rapid response. Neurologist informed this RN needs higher level of care, hospitalist
informed and nursing supervisor stripping informed. Hospitalist informed this RN to administer oral Diovan prior to head CT and IV hydralazine, BP 172/84. This RN and neurologist at head CT, neurologist informed this RN to have patient transferred to IMU,
supervisor stripping made aware, order placed. Pt transferred to IMU after head CT with this RN and PC. Bedside report provided to MOBILE MARKETING MANAGER Diamond.
[2025-07-25] MEDS: APRESOLINE 5 MG IV (08:45)
[2025-07-25] MEDS: DIOVAN 320 MG PO (08:47)
[2025-07-25] MEDS: KEPPRA 500 MG PO ×2 (08:47→21:01)
[2025-07-25] MEDS: TYLENOL 650 MG PO ×2 (10:36→18:38)
[2025-07-25] MEDS: LOW STRENGTH ASPIRIN 81 MG PO (10:37)
[2025-07-25] MEDS: MIRALAX PO (11:13)
--- NOTE | 2025-07-25 11:46 | PTCARENOTE ---
Patient transferred from [facility] for increase in NIH score and closer monitoring. CT of head completed prior to transfer. No changes noted. NIH score of 7. VS stable. Manual BP 136/78,103,14 98%RA. Pt reports right hip pain. Medicated with
tylenol. Son in room at bedside,provided update.
--- NOTE | 2025-07-25 14:37 | W.PN.NEURO.1 ---
Today's Communication / Plan
-
The plan is to hold aspirin for now. Will repeat a CT of the head in 2 days and start aspirin after reviewing the CT of the head.
The patient will have DVT prophylaxis with the help of SCDs for now.
The patient will continue on Keppra 500 mg twice a day
. A repeat CT of the head was done today that showed the intracranial hemorrhage in the right posterior parietal lobe, to be grossly unchanged in size as compared to the prior CT.
. Routine EEG did not show epileptiform activity, however it showed mild diffuse slowing which can suggest encephalopathy.
. Seizure precautions.
. The plan is to keep systolic blood pressure < 140.
. The patient was transferred to IMU for better observation and control of her blood pressure.
. Follow-up with the movement disorders specialist as an outpatient for chronic dyskinesias.
Will sign off please call if you have any question.
Subjective/Objective
Subjective Data
Date of Service: July 25, 2025
Today morning, the patient reported to be slow to respond and also she appeared to be weaker on the left side. Repeat CT of the head was done that did not show any significant change in the intracranial hemorrhage in the right posterior parietal
lobe as compared to the prior CT.
The patient was again examined in the evening and she was found to be back to her baseline of yesterday. She appeared to be more alert and stronger in the evening. She had antigravity strength in bilateral upper and lower extremities. Her speech
was improved in the evening.
The plan is to hold aspirin for now.
The patient will have DVT prophylaxis with the help of SCDs
The patient will continue on Keppra 500 mg twice a day
. A repeat CT of the head was done today that showed the intracranial hemorrhage in the right posterior parietal lobe, to be grossly unchanged in size as compared to the prior CT.
. Routine EEG did not show epileptiform activity, however it showed mild diffuse slowing which can suggest encephalopathy.
. Seizure precautions.
. The plan is to keep systolic blood pressure < 140.
The patient was transferred to IMU for better observation and control of her blood pressure.
Objective Data
Vital Signs
Temp Pulse Resp BP Pulse Ox
37.5 C 77 18 136/78 98
07/25/25 11:00 07/25/25 08:47 07/25/25 07:00 07/25/25 10:26 07/25/25 13:53
Lab Results
07/25/25 07:03
07/25/25 07:03
PT 14.7 Sec (11.4-14.6) H 07/22/25 04:45
INR 1.12 07/22/25 04:45
APTT 22.9 Sec (23.4-35.0) L 07/22/25 04:45
Sodium 133 mmol/L (135-145) L 07/25/25 07:03
Potassium 3.8 mmol/L (3.5-5.1) 07/25/25 07:03
BUN 10 mg/dl (7-17) 07/25/25 07:03
Glucose 95 mg/dl (70-99) 07/25/25 07:03
Calcium 9.1 mg/dl (8.4-10.2) 07/25/25 07:03
Phosphorus 2.9 mg/dl (2.5-4.5) 07/23/25 03:44
LDL Cholesterol, Calc 56 mg/dl 07/22/25 04:44
Vitamin B12 821 pg/ml (239-931) 07/23/25 03:44
Patient Allergies
atorvastatin Allergy (Verified 05/21/23 07:28)
MUSCLE CRAMPS
pollen extracts Allergy (Verified 05/21/23 12:41)
congestion/sneezing
raloxifene (From Evista) Allergy (Verified 05/21/23 07:28)
Hives
strawberry Allergy (Verified 05/21/23 07:28)
Hives
Vital Signs and Labs
-
Vital Signs and Labs:
Vital Signs
Temp Pulse Resp BP Pulse Ox
37.5 C 77 18 136/78 98
07/25/25 11:00 07/25/25 08:47 07/25/25 07:00 07/25/25 10:26 07/25/25 13:53
Lab Results
07/25/25 07:03
07/25/25 07:03
PT 14.7 Sec (11.4-14.6) H 07/22/25 04:45
INR 1.12 07/22/25 04:45
APTT 22.9 Sec (23.4-35.0) L 07/22/25 04:45
Sodium 133 mmol/L (135-145) L 07/25/25 07:03
Potassium 3.8 mmol/L (3.5-5.1) 07/25/25 07:03
BUN 10 mg/dl (7-17) 07/25/25 07:03
Glucose 95 mg/dl (70-99) 07/25/25 07:03
Calcium 9.1 mg/dl (8.4-10.2) 07/25/25 07:03
Phosphorus 2.9 mg/dl (2.5-4.5) 07/23/25 03:44
LDL Cholesterol, Calc 56 mg/dl 07/22/25 04:44
Vitamin B12 821 pg/ml (239-931) 07/23/25 03:44
Medications
-
Active Medications
Generic Name Dose Route Start Last Admin
Trade Name Freq PRN Reason Stop Dose Admin
Acetaminophen 650 mg 07/24/25 10:44 07/25/25 10:36
Acetaminophen 325 Mg Tablet PO 08/21/25 10:43 650 mg
Q4HPRN PRN Administration
mild pain or fever
Artificial Tears 1 drops 07/23/25 16:10
Artificial Tears Pf (Refresh) 10 Drop Droperette BOTH EYES 08/20/25 16:09
BIDPRN PRN
dryness
Aspirin 81 mg 07/24/25 12:00 07/25/25 10:37
Aspirin 81 Mg Chewable Tablet PO 08/21/25 11:59 81 mg
DAILY STEPHANIE Administration
Hydralazine HCl 5 mg 07/22/25 10:56 07/25/25 08:45
Hydralazine 20 Mg/Ml Vial IV 08/19/25 10:55 5 mg
Q6HPRN PRN Administration
SBP>140mmHg; hold if HR>95
Latanoprost 0 drop 07/23/25 22:00 07/24/25 20:46
Latanoprost 0.005% (Ophthalmic Solution) 2.5 Ml Bottle BOTH EYES 08/20/25 21:59 1 drop
HS STEPHANIE Administration
Levetiracetam 500 mg 07/24/25 20:00 07/25/25 08:47
Levetiracetam 500 Mg Regular Release Tablet PO 08/21/25 19:59 500 mg
Q12 STEPHANIE Administration
Polyethylene Glycol 17 grams 07/24/25 12:00 07/25/25 11:13
Polyethylene Glycol Powder 17 Grams Packet PO 08/21/25 11:59 Not Given
DAILY STEPHANIE
Rosuvastatin Calcium 20 mg 07/23/25 18:00 07/24/25 16:33
Rosuvastatin (Crestor) 20 Mg Tablet PO 08/20/25 17:59 20 mg
QPM STEPHANIE Administration
Sodium Chloride 0 flush 07/21/25 20:00
Sodium Chloride 0.9% (Flush) Syringe IV 08/18/25 19:59
PER PROTOCOL STEPHANIE
Valsartan 320 mg 07/25/25 08:00 07/25/25 08:47
Valsartan 160 Mg Tablet PO 08/22/25 07:59 320 mg
DAILY STEPHANIE Administration
Home Medications
�Medication �Instructions �Recorded
ascorbic acid (vitamin C) 500 mg 500 mg PO DAILY Supplement 05/21/23
tablet (Vitamin C)
calcium 600 mg (as carbonate)-vit 1 tab PO DAILY Supplement 05/21/23
D3 20 mcg (800 unit) chewable
tablet (Caltrate plus D)
valsartan 320 1 tab PO DAILY Blood Pressure 05/21/23
mg-hydrochlorothiazide 12.5 mg
tablet
fkzrxgp-kxqkednvccozc-oloxalmd 250 1 tab PO DAILYPRN PRN headaches 07/21/25
mg-250 mg-65 mg tablet (Excedrin
Extra Strength)
carboxymethylcellulose sodium 0.5 1 drp BOTH EYES BIDPRN PRN dryness 07/21/25
% eye drops (Refresh Tears)
latanoprost 0.005 % eye drops 1 drp BOTH EYES HS Eye Condition 07/21/25
rosuvastatin 20 mg tablet (Crestor) 20 mg PO DAILY High Cholesterol 07/21/25
--- NOTE | 2025-07-25 16:30 | PTCARENOTE ---
Patient seen by speech today. Diet was changed to puree diet with thin liquids. Aspiration precautions. Patient complaining of right hip pain which has been chronic for her. Medicated with tylenol and repositioning for comfort. Patient INC of
urine. No BM today. Family in room at bedside.
[2025-07-25] MEDS: CRESTOR 20 MG PO (18:38)
--- NOTE | 2025-07-25 18:45 | PTCARENOTE ---
Verbal order received from neurology-Dr. Winchester to hold ASA tomorrow morning. to reevaluate ASA 07/26.
[2025-07-26] VITALS (22 sets, daily range): BP systolic 93–177; BP diastolic 64–133; PULSE 81
[2025-07-26] MEDS: XALATAN OPHTHALMIC SOLUTION BOTH EYES (00:39)
--- NOTE | 2025-07-26 04:07 | PTCARENOTE ---
Received pt at change of shift. NIH 4 at change of shift; some expressive aphasia and slightly slurred, slow speech. AAOx3 but forgetful at times. Able to turn in bed by herself; favors her left side, using foam wedge to prop her up to turn
regularly. Inc of bladder. No BM this shift. Resting in bed with call chilel in reach.
[2025-07-26] MEDS: APRESOLINE 5 MG IV (06:12)
[2025-07-26] MEDS: MIRALAX 17 GRAMS PO (08:07)
[2025-07-26] MEDS: DIOVAN 320 MG PO (08:07)
[2025-07-26] MEDS: KEPPRA 500 MG PO ×2 (08:07→19:57)
[2025-07-26] MEDS: TYLENOL 650 MG PO ×2 (10:05→17:25)
--- NOTE | 2025-07-26 10:55 | PTOTSP ---
Speech Language Pathology
Pt seen for dysphagia tx only, as transport arrived during session to take pt for xray. Family member present at bedside who reported improvement in overall status compared to yesterday. Pt/family member/RN denied any difficulty with pureed items
or thin liquids. Trialed regular solids in addition to thin liquids and puree. Slightly prolonged mastication noted with trace diffuse oral residue noted, which cleared with a cued liquid wash. No overt signs of aspiration. Last CXR completed
07/22 with no findings.
Recommend:
(1) Upgrade to IDDSI Level 6 (soft/bite-sized) and thin liquids
(2) Aspiration precautions: ensure oral cavity clear post P.O. intake, slow rate, sit upright
(3) Meds as best tolerated
(4) MIME ARTIST to continue to follow for dysphagia, aphasia, and cognitive tx
--- NOTE | 2025-07-26 11:44 | PTCARENOTE ---
Patient returned from GI lab; blood transfusion completed.
[2025-07-26] MEDS: LIDOCAINE 4% PATCH 1 PATCH TOPICAL ×2 (11:54→11:55)
--- NOTE | 2025-07-26 12:20 | PTCARENOTE ---
Assumed care of patient at beginning of this shift from previous RN; cannot verify accuracy of vital signs prior to 0700. NIHSS =2 for mild slurring and drift of R leg. Patient c/o pain to R hip with any movement so difficulty with scoring d/t pain.
Neurologist in room and updated. Dr Gamez also made aware; Xrays ordered as well as lidoderm patches which were applied. See [employer] for results of Xrays. Patient given tylenol for pain as ordered prn with relief. Incontinent of urine. Speech
therapist evaluated patient and recommended soft and bite sized; see order for updated diet. Family at bedside and stated will order lunch for patient. Current BP 127/92, HR 86. See worklist for full assessment and vital signs; see MAR for med
administration.
--- NOTE | 2025-07-26 15:41 | W.PN.HOSP.TC ---
Today's Communication/Plan
-
see bold
Assessment / Plan
Assessment / Plan
HPI: 84-year-old female was last seen approximate 2 PM this afternoon by her when she asked her to check her blood pressure. He notes she had difficulty moving her right arm getting it out of her robe. She started to have trouble
speaking but then speech became clear. He called his son over to the house who noticed that she was not responding as normal she had right sided facial droop. Upon EMS arrival she was found to exhibit left preferential gaze unable to follow verbal
commands. Stroke alert was called was determined by stroke fellow patient received TNK. Her states yesterday she was complaining of headache and did take Excedrin. According to ER nurse upon arrival patient was unresponsive but restless
moving all of her extremities in bed shoulders arms legs head but was unable to open eyes follow commands. She received Versed 4 mg, IV Ativan, Keppra 4000 mg and is still restless. Her family states she does have some baseline movement disorder
of her arms and legs but never to this degree. She does not have fever, diaphoresis, cough, vomiting, diarrhea.
Assessment/plan:
#Acute�subacute stroke with hemorrhagic conversion
#Acute intracranial hemorrhage involving the posterior right parietal lobe
#Acute dysarthria
#Acute right facial droop
Status post TNK in the ED 07/21
Neurology following, continue post TNA protocol
1. Monitor NIHSS and neurologic checks
2. Resumed home diovan. IV hydralazine prn for goal SBP less than 140
3. Brain MRI & echo reviewed. 07/[address] showed unchanged right posterior lobe intracranial hemorrhage
4. LDL 56, HgA1C 5.3. Resumed statin
5. Neurology recommends holding aspirin, and repeating head CT in 1 day, likely can resume aspirin if right parietal lobe hematoma stable
6. Speech, physical, occupational therapies - rec acute rehab, accepted by [facility]
07/25, RN reported higher NIHSS score. Repeat head CT repeated showing stable right parietal lobe intracranial hemorrhage
Transferred to IMU for closer monitoring
Diet changed to soft with thin liquids as per SPL recommendations
#Acute toxic metabolic encephalopathy
Status post Precedex drip
ABG's reviewed, patient is not hypercapnic
B12/TSH normal
Resolved, continue supportive care
#Flailing extremities concerning for seizure activity
#Baseline movement disorder
Family reports that patient has a baseline movement disorder of her arms and legs, but this has worsened in severity since being in the hospital
Ceribell negative for seizures
Appreciate neurology input, EEG neg for seizures
Continue Keppra
#Essential hypertension
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
Resumed home diovan. IV hydralazine prn for goal SBP less than 140
#Right hip pain
#Lumbar spine degenerative disc disease
Right hip x-rays negative, lumbar spine x-rays confirm DDD
Suspect radicular pain
Continue Tylenol as needed, added lidocaine patches
#Hypokalemia
Repleted and resolved
#Hyponatremia
Mild, monitor
#Prolonged QTc
QTc upon admission 545 ms, QTc now normal
#Hyperlipidemia
Resumed statin
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
#History of Gilbert's syndrome
#History of breast cancer 1997
Status post right lumpectomy, chemo, radiation
DVT prophylaxis�SCDs
Full code
Updated son at bedside 07/26
Total time spent to see the patient on the floor, examine the patient, review data and lab results, discuss treatment plan with patient, nursing staff around 51 minutes.
Physical Exam
General: Awake, alert, no acute distress
HEENT: Normocephalic, Atraumatic
Respiratory: Clear to Auscultation bilaterally
Cardiac: Normal S1/S2, Regular Rate and Rhythm
GI: Soft, Nontender, Nondistended, Normal Bowel Sounds
Extremities: No Clubbing, Cyanosis, or Edema
Neuro: Rhythmic jerking of the shoulder noted
B/l UE 5/5
RLE 4/5, LLE 4+/5
Psych: Calm/cooperative
Anticipated Discharge: 24 - 48 hours
Subjective/Interval History
-
Date of Service: July 26, 2025
Patient complains of right hip pain today, which is new. She also has lower back pain, that is chronic. She denies chest pain, denies shortness of breath. No fever, no vomiting.
Objective Data
-
Vital Signs:
Vital Signs
Temp Pulse Resp BP Pulse Ox
98 F 85 18 154/71 97
07/26/25 11:50 07/26/25 14:30 07/26/25 14:30 07/26/25 14:00 07/26/25 08:33
I&O
07/25/25 07/26/25 07/27/25
06:59 06:59 06:59
Intake Total 720 / 720 1050 / 1050
Balance 720 / 720 1050 / 1050
[2025-07-26] MEDS: CRESTOR 20 MG PO (17:03)
[2025-07-26] MEDS: REMOVE LIDOCAINE PATCH 1 PATCH REMOVE ×2 (19:58)
[2025-07-27] VITALS (62 sets, daily range): BP systolic 81–191; BP diastolic 26–145; PULSE 76–80
[2025-07-27] MEDS: XALATAN OPHTHALMIC SOLUTION BOTH EYES (01:36)
[2025-07-27] MEDS: APRESOLINE 5 MG IV (04:05)
[2025-07-27] MEDS: TYLENOL 650 MG PO ×3 (04:05→22:31)
[2025-07-27] MEDS: CARDIZEM 125 IV (05:21)
[2025-07-27] MEDS: CARDIZEM 5 MG IV (05:21)
[2025-07-27] MEDS: NSS 250 IV (06:00)
--- NOTE | 2025-07-27 06:05 | W.PN.UPDATE ---
Update Note
Progress Note Update
Patient noted in uncontrolled atrial fibrillation on telemetry and confirmed by ekg. No CP but does feel woozy. Cardizem bolus with infusion started with unfortunate drop in bp to systolic of 90s. NS IVF bolus of 250 mls over 2 hours, placed in
Trendelenburg and will give Digoxin iv x1. DCA cardiology on consult now and will see patient. She denies feeling the fast irregular HR. Unable to anticoagulate due to hemorrhagic conversion of earlier CVA.
[2025-07-27] MEDS: LANOXIN 250 MCG IV (06:06)
[2025-07-27 06:34] LABS: Blood Urea Nitrogen 15 mg/dl (7-17); Calcium 9.2 mg/dl (8.4-10.2); Carbon Dioxide 24 mmol/L (22-30); Chloride 101 mmol/L (98-107); Estimated Creatinine Clearance 63 ml/min; Glucose 113 mg/dl (70-99); Magnesium 2.0 mg/dl (1.6-2.3); Potassium 3.5 mmol/L (3.5-5.1); Sodium 132 mmol/L (135-145); eGFR > 60.00
--- NOTE | 2025-07-27 07:42 | W.PN.HOSP.TC ---
Today's Communication/Plan
-
Continue Amiodarone
Continue monitoring in IMU
Assessment / Plan
Assessment / Plan
Physical Exam
General: Awake, alert, no acute distress
HEENT: Normocephalic
Respiratory: Clear to Auscultation bilaterally
Cardiac: Normal S1/S2, Regular Rate and Rhythm
GI: Soft, Nontender, Nondistended, Normal Bowel Sounds
Extremities: No Cyanosis, No Edema
Neuro: Alert. Awake. Nonfocal/grossly intact
Psych: Calm/cooperative
Assessment/Plan
HPI: 84-year-old female was last seen approximate 2 PM this afternoon by her when she asked her to check her blood pressure. He notes she had difficulty moving her right arm getting it out of her robe. She started to have trouble
speaking but then speech became clear. He called his son over to the house who noticed that she was not responding as normal she had right sided facial droop. Upon EMS arrival she was found to exhibit left preferential gaze unable to follow verbal
commands. Stroke alert was called was determined by stroke fellow patient received TNK. Her states yesterday she was complaining of headache and did take Excedrin. According to ER nurse upon arrival patient was unresponsive but restless
moving all of her extremities in bed shoulders arms legs head but was unable to open eyes follow commands. She received Versed 4 mg, IV Ativan, Keppra 4000 mg and is still restless. Her family states she does have some baseline movement disorder
of her arms and legs but never to this degree. She does not have fever, diaphoresis, cough, vomiting, diarrhea.
#Acute�subacute stroke with hemorrhagic conversion
#Acute intracranial hemorrhage involving the posterior right parietal lobe
#Acute dysarthria
#Acute right facial droop
Status post TNK in the ED 07/21
Neurology following, continue post TNA protocol
1. Monitor NIHSS and neurologic checks
2. Resumed home Diovan. IV hydralazine prn for goal SBP less than 140
3. Brain MRI & echo reviewed. 07/[address] showed unchanged right posterior lobe intracranial hemorrhage
4. LDL 56, HgA1C 5.3. Resumed statin
5. Neurology recommends holding aspirin, and repeating head CT in 1 day, I communicated on 07/27/[address] via [facility] [address]. Cutler who recommended continuing to hold Aspirin
6. Speech, physical, occupational therapies - rec acute rehab, accepted by [facility]
07/25, RN reported higher NIHSS score. Repeat head CT repeated showing stable right parietal lobe intracranial hemorrhage
Previously transferred to IMU for closer monitoring
Diet changed to soft with thin liquids as per SPL recommendations
#Paroxysmal Atrial Fibrillation
-Received Cardizem Drip and bolus, Digoxin, now on Amiodarone load -- continue
-Monitor CMP while on Amiodarone
-In the setting of stroke and paroxysmal atrial fibrillation, patient would benefit from anticoagulation -- per neurology, okay to start anticoagulation (Eliquis 5 mg BID) 2 weeks after CVA -- start Eliquis 5 mg BID on 08/04/25
-Per neurology, okay to recheck CT of head immediately prior to start of anticoagulation
#Acute toxic metabolic encephalopathy
Status post Precedex drip
ABG's reviewed, patient is not significantly hypercapnic
B12/TSH normal
Resolved, continue supportive care
#Flailing extremities concerning for seizure activity
#Baseline movement disorder
Family reports that patient has a baseline movement disorder of her arms and legs, but this has worsened in severity since being in the hospital
Ceribell negative for seizures
Appreciate neurology input, EEG neg for seizures
Continue Keppra
#Essential hypertension
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
Home Diovan previously resumed. IV hydralazine prn for goal SBP less than 140
#Right hip pain
#Lumbar spine degenerative disc disease
Right hip x-rays negative, lumbar spine x-rays confirm DDD
Suspect radicular pain
Continue Tylenol as needed, added lidocaine patches
#Hypokalemia
Repleted and resolved
#Hyponatremia
Mild, monitor
#Prolonged QTc
-Monitor QTc now that patient is on Amiodarone
#Hyperlipidemia
Resumed statin
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
#History of Gilbert's syndrome
#History of breast cancer 1997
Status post right lumpectomy, chemo, radiation
DVT prophylaxis�SCDs. Lovenox.
Full code
New-AFib with RVR needing cardizem drip, Amiodarone is a high-risk encounter.
Anticipated Discharge: 24 - 48 hours
Subjective/Interval History
-
Date of Service: July 27, 2025
Patient was seen and examined. She denied any new symptoms or complaints.
Objective Data
-
Labs:
Laboratory Results
07/27/25
05:39
Sodium 132 L
Potassium 3.5
Chloride 101
Carbon Dioxide 24
BUN 15
Creatinine 0.4 L
Glucose 113 H
Calcium 9.2
Vital Signs:
Vital Signs
Temp Pulse Resp BP Pulse Ox
97.4 F 161 23 111/99 97
07/27/25 07:25 07/27/25 06:06 07/27/25 05:30 07/27/25 05:30 07/26/25 08:33
I&O
07/26/25 07/27/25 07/28/25
06:59 06:59 06:59
Intake Total 1050 / 1050
Balance 1050 / 1050
[2025-07-27] MEDS: KCL ELIXIR 40 MEQ PO (08:36)
[2025-07-27] MEDS: KEPPRA 500 MG PO ×2 (08:37→19:47)
[2025-07-27] MEDS: LIDOCAINE 4% PATCH 1 PATCH TOPICAL ×2 (08:38→08:39)
[2025-07-27] MEDS: MIRALAX 17 GRAMS PO (08:38)
--- NOTE | 2025-07-27 08:42 | CON.CAR ---
Addendum entered and electronically signed by Lakhwinder Cox DO 07/27/25 11:28:
I saw and examined the patient.
The Call Box Wirer's note was reviewed and I agree with the note.
Comment:
Plan:
Paroxysmal atrial fibrillation converted to sinus rhythm spontaneously.
In the setting of CVA and paroxysmal atrial fibrillation, patient would benefit from anticoagulation once okay with neurology.
After discussion with neurology, patient transition to anticoagulation in 2 weeks.
-Patient admitted with CVA and treated with TNK 07/21/2025. Patient then found to have acute intracranial hemorrhage in the posterior right parietal lobe and has been stable by serial CT of the head as recently as 07/25/2025.
-Recommend starting Eliquis 5 mg BID (age 84, Cre 0.4, wt 69.7 kg) on 08/04/25.
Transition off of IV Cardizem
Start amiodarone load with amiodarone 400 mg TID 07/27/2025 AM
Echo reviewed with preserved LV function and no significant valvular disease, images reviewed
Continue statin therapy for hyperlipidemia with LDL 56 and outpatient dose of Crestor 20 mg daily has been continued
Resume outpatient antihypertensive therapy as BP will allow.
Family updated
HPI: Patient came to [facility] ER last Sunday as a prehospital stroke alert and was treated with TNK followed by hemorrhagic conversion and cardiology is now consulted for new diagnosis of A-fib seen on telemetry this morning. Patient was brought to
the ER this past Sunday with new right sided facial droop and dysarthria. Initial CT scan was delayed due to involuntary movements that were initially thought to be due to possible seizure, but family says are part of a chronic underlying
undiagnosed movement disorder. Once CT imaging was obtained the patient was given TNK. CT of the head also showed an area of encephalomalacia in the right parietal lobe extending to the junction of the superior right occipital lobe and the
posterior and superior right temporal lobe that look like an area of an old infarction. Patient had a previous right CEA back in 2022. MRI of the brain the following day showed a small intraparenchymal hemorrhage in the posterior high right
parietal lobe that has been followed with serial CT scans of the head and has been stable as recently as 07/25/2025. Patient has been on aspirin therapy alone and was not yet started on Plavix. Patient noted to have newly diagnosed A-fib with RVR
seen on telemetry this morning. Patient initially given Cardizem IV bolus and then developed hypotension, Cardizem gtt deferred. Patient then given a dose of digoxin for an attempt at rate control, BP improved and Cardizem gtt eventually started
and was running at 15 mg 1 patient had spontaneous conversion to SR during cardiology evaluation this morning. Patient was asymptomatic with A-fib and was also asymptomatic with spontaneous conversion. No conversion pause noted.
Original Note:
Consultation
Consultation Request
Date/Time Consultation Requested: 07/27/2025 at 0532
Date/Time Consultation Performed: 07/27/2025 at 0842
Requesting Provider: Dr. Jewell
Performing Provider: Dr. Cox
Reason for Consultation: Admitted with CVA, newly diagnosed A-fib
Medical History
-
History of Present Illness:
Patient came to [facility] ER last Sunday as a prehospital stroke alert and was treated with TNK followed by hemorrhagic conversion and cardiology is now consulted for new diagnosis of A-fib seen on telemetry this morning. Patient was brought to the ER
this past Sunday with new right sided facial droop and dysarthria. Initial CT scan was delayed due to involuntary movements that were initially thought to be due to possible seizure, but family says are part of a chronic underlying undiagnosed
movement disorder. Once CT imaging was obtained the patient was given TNK. CT of the head also showed an area of encephalomalacia in the right parietal lobe extending to the junction of the superior right occipital lobe and the posterior and
superior right temporal lobe that look like an area of an old infarction. Patient had a previous right CEA back in 2022. MRI of the brain the following day showed a small intraparenchymal hemorrhage in the posterior high right parietal lobe that
has been followed with serial CT scans of the head and has been stable as recently as 07/25/2025. Patient has been on aspirin therapy alone and was not yet started on Plavix. Patient noted to have newly diagnosed A-fib with RVR seen on telemetry
this morning. Patient initially given Cardizem IV bolus and then developed hypotension, Cardizem gtt deferred. Patient then given a dose of digoxin for an attempt at rate control, BP improved and Cardizem gtt eventually started and was running at
15 mg 1 patient had spontaneous conversion to SR during cardiology evaluation this morning. Patient was asymptomatic with A-fib and was also asymptomatic with spontaneous conversion. No conversion pause noted.
PMH:
h/o CVA right parietal lobe to the superior right occipital lobe and posterior superior right temporal lobe seen on CT of head 07/21/2025
h/o right CEA 05/21/2023
TME
Undiagnosed baseline movement disorder with unremarkable workup for seizures thus far
HTN
Hyperlipidemia
h/o breast cancer with previous lumpectomy, radiation and chemotherapy with Adriamycin and cytotoxin in 1997
Past Medical History
Past Medical History: Other (In HPI)
Past Surgical History: Gynecological (Lumpectomy), Orthopedic (Right TKA) and Other (Right CEA 05/21/2023)
Social History
Tobacco: Non-Smoker
Alcohol: None
Drug: None
Personal:
Living: With Family
Family History
Family History: CAD (Father and mother with OH, sister with CABG), Cancer (Daughter with breast cancer) and Hypertension
Allergies / Home Medications
Allergy/AdvReac Type Severity Reaction Status Date / Time
atorvastatin Allergy MUSCLE Verified 05/21/23 07:28
CRAMPS
pollen extracts Allergy congestion/ Verified 05/21/23 12:41
sneezing
raloxifene (From Evista) Allergy Hives Verified 05/21/23 07:28
strawberry Allergy Hives Verified 05/21/23 07:28
�Medication �Instructions �Recorded �Confirmed �Type
ascorbic acid (vitamin C) 500 mg 500 mg PO DAILY Supplement 05/21/23 07/21/25 History
tablet (Vitamin C)
calcium 600 mg (as carbonate)-vit 1 tab PO DAILY Supplement 05/21/23 07/21/25 History
D3 20 mcg (800 unit) chewable
tablet (Caltrate plus D)
valsartan 320 1 tab PO DAILY Blood Pressure 05/21/23 07/21/25 History
mg-hydrochlorothiazide 12.5 mg
tablet
hgqwgwc-iidgtlxsoypyx-geurnhql 250 1 tab PO DAILYPRN PRN headaches 07/21/25 07/21/25 History
mg-250 mg-65 mg tablet (Excedrin
Extra Strength)
carboxymethylcellulose sodium 0.5 1 drp BOTH EYES BIDPRN PRN dryness 07/21/25 07/21/25 History
% eye drops (Refresh Tears)
latanoprost 0.005 % eye drops 1 drp BOTH EYES HS Eye Condition 07/21/25 07/21/25 History
rosuvastatin 20 mg tablet (Crestor) 20 mg PO DAILY High Cholesterol 07/21/25 07/21/25 History
Review of Systems
-
History Source: Patient
All other systems: Negative unless noted
Physical Exam
Vital Signs
Temp Pulse Resp BP Pulse Ox
97.4 F 161 23 111/99 97
07/27/25 07:25 07/27/25 06:06 07/27/25 05:30 07/27/25 05:30 07/26/25 08:33
GEN: NAD, AAO x 3
HEENT: EOMI, MMM
LUNGS: RA. CTA B/L, no wheeze
CV: Initially A-fib on telemetry and then spontaneously converted to SR with paroxysms of atrial arrhythmia up to 10 beats. Reg, S1/S2, no murmur
ABD: ND
EXT: No edema B/L LE
NEURO: Gross non-focal
SKIN: No rash
Lab Results
07/25/25 07:03
07/27/25 05:39
Impression / Plan
-
PCP: Dr. Magalis Julian
Cardiology: None prior to admission
Impression:
Admitted with possible CVA, right-sided facial droop and prehospital stroke alert 07/21/2025
Acute CVA treated with TNK 07/21/2025
Acute intracranial hemorrhage involving the posterior right parietal lobe, stable by most recent CT head 07/25/2025
h/o CVA right parietal lobe to the superior right occipital lobe and posterior superior right temporal lobe seen on CT of head 07/21/2025
Newly diagnosed paroxysmal A-fib with spontaneous conversion to SR on Cardizem gtt 07/27/2025
h/o right CEA 05/21/2023
TME
Undiagnosed baseline movement disorder with unremarkable workup for seizures thus far
HTN
Hyperlipidemia
h/o breast cancer with previous lumpectomy, radiation and chemotherapy with Adriamycin and cytotoxin in 1997
Echo 07/23/2025: EF 63%, no WMA, mild MR, mild TR
Plan:
-Patient came to [facility] ER last Sunday as a prehospital stroke alert and was treated with TNK followed by hemorrhagic conversion and cardiology is now consulted for new diagnosis of A-fib seen on telemetry this morning. Patient was brought to the ER
this past Sunday with new right sided facial droop and dysarthria. Initial CT scan was delayed due to involuntary movements that were initially thought to be due to possible seizure, but family says are part of a chronic underlying undiagnosed
movement disorder. Once CT imaging was obtained the patient was given TNK. CT of the head also showed an area of encephalomalacia in the right parietal lobe extending to the junction of the superior right occipital lobe and the posterior and
superior right temporal lobe that look like an area of an old infarction. Patient had a previous right CEA back in 2022. MRI of the brain the following day showed a small intraparenchymal hemorrhage in the posterior high right parietal lobe that
has been followed with serial CT scans of the head and has been stable as recently as 07/25/2025. Patient has been on aspirin therapy alone and was not yet started on Plavix. Patient noted to have newly diagnosed A-fib with RVR seen on telemetry
this morning. Patient initially given Cardizem IV bolus and then developed hypotension, Cardizem gtt deferred. Patient then given a dose of digoxin for an attempt at rate control, BP improved and Cardizem gtt eventually started and was running at
15 mg 1 patient had spontaneous conversion to SR during cardiology evaluation this morning. Patient was asymptomatic with A-fib and was also asymptomatic with spontaneous conversion. No conversion pause noted.
-ECG reviewed by me on admission was SR with significant baseline artifact, ECG from 07/22/2025 was SR without acute ST changes and ECG from earlier this morning was A-fib with RVR
-Telemetry reviewed by me and followed throughout HPI, patient was initially in A-fib with RVR and then spontaneously converted to SR without significant pauses, following conversion patient continue with paroxysms up to 10 beats of atrial
arrhythmia, always asymptomatic.
-Patient admitted with CVA and treated with TNK 07/21/2025. Patient then found to have acute intracranial hemorrhage in the posterior right parietal lobe and has been stable by serial CT of the head as recently as 07/25/2025.
-Case reviewed with neurology by me to determine timeline of starting OAC and based on size and location of hemorrhage neurology is recommending deferring OAC until 2 weeks following CVA.
-Recommend starting Eliquis 5 mg BID (age 84, Cre 0.4, wt 69.7 kg) on 08/04/25.
-During cardiology evaluation the patient spontaneously converted to SR, but continued with asymptomatic paroxysms of atrial arrhythmia. Cardizem gtt rate decreased to 10 mg/hr by me at 0830 and then decreased again to 5 mg/hr at 0930.
-Patient started on amiodarone 400 mg TID 07/27/2025 AM, orders placed by me.
-Check ECG in a.m., orders placed by me
-TSH normal at 2.12 on 07/23/2025
-Echo reviewed and summarized above by me, EF is preserved without significant valve disease
-Plan for now is an attempt at rhythm control with the addition of amiodarone and pending outpatient burden of A-fib and tolerance of amiodarone could consider eventual evaluation for ablation, but patient is otherwise asymptomatic with her A-fib.
-LDL 56 and outpatient dose of Crestor 20 mg daily has been continued
-BP 115/62 this morning, but was higher at 139/125 prior to initiation of Cardizem gtt. Outpatient dose of valsartan and HCTZ remains on hold.
[2025-07-27] MEDS: PACERONE 400 MG PO ×3 (09:03→22:22)
--- NOTE | 2025-07-27 09:06 | W.PN.NEURO.1 ---
Today's Communication / Plan
-
Unfortunately, despite new onset of atrial fibrillation, would continue to wait to anticoagulate patient due to risk of worsening known small intracranial hemorrhage following appropriate usage of tenecteplase. Data suggest patient may be able to
restart at 2 weeks after stroke onset (08/04/2025).
Okay to recheck CT of head immediately prior to start of anticoagulation
DVT prophylaxis with enoxaparin needed
Neuro Assessment/Plan
Assessment
84-year-old female who approximately at 2 PM on 07/21/2025, was noted by the family to have difficulty in moving her right arm along with some trouble speaking. She was also reported to have a right-sided facial droop. Upon arrival of the EMS, she
was found to show a left gaze preference and was unable to follow verbal commands. Stroke alert was called and the patient received TNK. The patient was agitated and restless in the ER and she received 4 mg of Versed, intravenous Ativan, and 4000
mg of Keppra, but she still was restless.
-CT head 07/22/25: There is a round focus of acute intracranial hemorrhage involving the posterior right parietal lobe, corresponding to the finding on earlier MRI of the brain.
MRI of the brain 07/22/25: There is a small nonhemorrhagic acute/subacute infarct in the right parieto-occipital region. There is an intraparenchymal hematoma within the posterior high right parietal lobe measuring 2.0 x 2.0 x 2.0 cm, with
surrounding vasogenic edema. No midline shift or herniation.
-CT head 07/21/25: There is focal area of encephalomalacia involving the right parietal lobe and extending to the junction with the superior right occipital lobe in the posterior and superior right temporal lobe, stable from previous examination,
and likely from an old area of infarction. CT of the head did not show any acute intracranial abnormality.
-CTA of the head and neck did not show a large vessel occlusion.
-EEG 07/23/25: This is a mildly abnormal EEG due to the bihemispheric slowing, right more than the left side. There was no definite epileptiform activity seen. This EEG can suggest mild encephalopathy.
-TTE 07/23/25: EF 63%. Left atrium is mildly enlarged.
I. 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
II. Stroke-like symptoms; aphasia, right facial drooping, left gaze preference s/p TNK complicated by hemorrhagic conversion. Concern for presenting symptoms being seizure activity in the setting of subacute/old stroke given gaze preference to the
left, which is away from the area of old infarct.
III. Chronic generalized dyskinesias.
Plan
Unfortunately, despite new onset of atrial fibrillation, would continue to wait to anticoagulate patient due to risk of worsening known small intracranial hemorrhage following appropriate usage of tenecteplase. Data suggest patient may be able to
restart at 2 weeks after stroke onset (08/04/2025).
Okay to recheck CT of head immediately prior to start of anticoagulation
DVT prophylaxis with enoxaparin needed
Goal of normotension
Continue Keppra 500mg twice a day, reconsider after discharge.
Continue home rosuvastatin 20mg daily as LDL is at goal.
-NIHSS and neurological checks per unit guidelines.
-Provide patient's family with a stroke education packet.
-PT/OT/ST Evaluations.
-Follow-up with movement specialist as an outpatient regarding chronic dyskinesias.
We will follow peripherally
Subjective/Objective
Subjective Data
Date of Service: July 27, 2025
Objective Data
Vital Signs
Temp Pulse Resp BP Pulse Ox
36.3 C 80 23 115/62 97
07/27/25 07:25 07/27/25 09:03 07/27/25 05:30 07/27/25 09:03 07/26/25 08:33
Lab Results
07/25/25 07:03
07/27/25 05:39
PT 14.7 Sec (11.4-14.6) H 07/22/25 04:45
INR 1.12 07/22/25 04:45
APTT 22.9 Sec (23.4-35.0) L 07/22/25 04:45
Sodium 132 mmol/L (135-145) L 07/27/25 05:39
Potassium 3.5 mmol/L (3.5-5.1) 07/27/25 05:39
BUN 15 mg/dl (7-17) 07/27/25 05:39
Glucose 113 mg/dl (70-99) H 07/27/25 05:39
Calcium 9.2 mg/dl (8.4-10.2) 07/27/25 05:39
Phosphorus 2.9 mg/dl (2.5-4.5) 07/23/25 03:44
LDL Cholesterol, Calc 56 mg/dl 07/22/25 04:44
Vitamin B12 821 pg/ml (239-931) 07/23/25 03:44
Patient Allergies
atorvastatin Allergy (Verified 05/21/23 07:28)
MUSCLE CRAMPS
pollen extracts Allergy (Verified 05/21/23 12:41)
congestion/sneezing
raloxifene (From Evista) Allergy (Verified 05/21/23 07:28)
Hives
strawberry Allergy (Verified 05/21/23 07:28)
Hives
Data Reviewed
-
CT Head: Report Reviewed and Image Reviewed
Labs: Report Reviewed
Lipid Profile: Report Reviewed
Reviewed with: Physician, Nurse Practioner and Physician Slab Lifting Supervisor
Old Records: Summarized
Past History
Past History
ED Past Medical History: None
ED Past Surgical History: None
Social History
Tobacco: Non-smoker
Alcohol: None
Medications
-
Medications:
Generic Name Dose Route Start Last Admin
Trade Name Freq PRN Reason Stop Dose Admin
Acetaminophen 650 mg 07/24/25 10:44 07/27/25 04:05
Acetaminophen 325 Mg Tablet PO 08/21/25 10:43 650 mg
Q4HPRN PRN Administration
mild pain or fever
Amiodarone HCl 400 mg 07/27/25 16:00
Amiodarone 200 Mg Tablet PO 08/24/25 15:59
TID STEPHANIE
Artificial Tears 1 drops 07/23/25 16:10
Artificial Tears Pf (Refresh) 10 Drop Droperette BOTH EYES 08/20/25 16:09
BIDPRN PRN
dryness
Aspirin 81 mg 07/24/25 12:00 07/25/25 10:37
Aspirin 81 Mg Chewable Tablet PO 08/21/25 11:59 81 mg
On Hold: 07/25/25 18:34 DAILY STEPHANIE Administration
Comment: CALL DR. ARTHUR 07/26
TO DETERMINE IF PT SHOULD
RECEIVE ASA.
Hydralazine HCl 5 mg 07/22/25 10:56 07/27/25 04:05
Hydralazine 20 Mg/Ml Vial IV 08/19/25 10:55 5 mg
On Hold: 07/27/25 06:37 Q6HPRN PRN Administration
SBP>140mmHg; hold if HR>95
Diltiazem HCl 125 mg in 125 mls @ 0 mls/hr 07/27/25 05:15 07/27/25 05:21
Cardizem IV 125 mls
PER PROTOCOL STEPHANIE Administration
Protocol
Per Protocol
Latanoprost 0 drop 07/23/25 22:00 07/27/25 01:36
Latanoprost 0.005% (Ophthalmic Solution) 2.5 Ml Bottle BOTH EYES 08/20/25 21:59 Not Given
HS STEPHANIE
Levetiracetam 500 mg 07/24/25 20:00 07/27/25 08:37
Levetiracetam 500 Mg Regular Release Tablet PO 08/21/25 19:59 500 mg
Q12 STEPHANIE Administration
Lidocaine 1 patch 07/26/25 10:20 07/27/25 08:38
Lidocaine 4% Topical Patch TOPICAL 08/23/25 10:19 1 patch
DAILY STEPHANIE Administration
Protocol
Lidocaine 1 patch 07/26/25 10:45 07/27/25 08:39
Lidocaine 4% Topical Patch TOPICAL 08/23/25 10:44 1 patch
DAILY STEPHANIE Administration
Protocol
Patch Removal 1 patch 07/26/25 20:00 07/26/25 19:58
Remove Lidocaine Patch REMOVE 08/23/25 19:59 1 patch
DAILY@1999 STEPHANIE Administration
Patch Removal 1 patch 07/26/25 20:00 07/26/25 19:58
Remove Lidocaine Patch REMOVE 08/23/25 19:59 1 patch
DAILY@1999 STEPHANIE Administration
Polyethylene Glycol 17 grams 07/24/25 12:00 07/27/25 08:38
Polyethylene Glycol Powder 17 Grams Packet PO 08/21/25 11:59 17 grams
DAILY STEPHANIE Administration
Rosuvastatin Calcium 20 mg 07/23/25 18:00 07/26/25 17:03
Rosuvastatin (Crestor) 20 Mg Tablet PO 08/20/25 17:59 20 mg
QPM STEPHANIE Administration
Sodium Chloride 0 flush 07/21/25 20:00
Sodium Chloride 0.9% (Flush) Syringe IV 08/18/25 19:59
PER PROTOCOL STEPHANIE
Valsartan 320 mg 07/25/25 08:00 07/26/25 08:07
Valsartan 160 Mg Tablet PO 08/22/25 07:59 320 mg
On Hold: 07/27/25 06:36 DAILY STEPHANIE Administration
--- NOTE | 2025-07-27 09:43 | W.PN.UPDATE ---
Update Note
Progress Note Update
Patient's , Shant, updated by phone for 7 minutes 36 seconds. We discussed the new diagnosis of A-fib and the spontaneous conversion to SR. We discussed plans for amiodarone loading and eventual OAC, but waiting until she is 2 weeks post CVA
per neurology. Patient is awaiting acute care rehab bed.
--- NOTE | 2025-07-27 13:29 | PTCARENOTE ---
Rec'd pt this AM. Converted from NSR this AM. Lois parrip off, PO Reanna given. OOB x2 to chair. NIHSS 2. Good communication today.
[2025-07-27] MEDS: CRESTOR 20 MG PO (17:10)
[2025-07-27] MEDS: LOVENOX 40 MG SC (17:11)
[2025-07-27] MEDS: REMOVE LIDOCAINE PATCH 1 PATCH REMOVE ×2 (19:47)
[2025-07-28] VITALS (18 sets, daily range): BP systolic 88–157; BP diastolic 46–118; PULSE 67; O2SAT 97
[2025-07-28] MEDS: XALATAN OPHTHALMIC SOLUTION 1 DROP BOTH EYES ×2 (00:28→21:46)
--- NOTE | 2025-07-28 02:30 | PTCARENOTE ---
Assumed care for patient overnight. NIHSS-3 for mild aphasia and R leg drift, however pt is c/o R hip pain. PRN Tylenol administered see NOV. AAOx3, drowsy. NSR on the monitor HR 70s. BP stable. Pt remains on RA, 98%. Pt ambulating to the [facility] w/
assist x1 and a rolling walker. Pt had a moderate sized BM. Pt tolerating turning and repositioning. Call chilel is within reach.
[2025-07-28] MEDS: TYLENOL 650 MG PO ×3 (05:07→19:24)
[2025-07-28 05:38] LABS: ALT (SGPT) 46 U/L (0-35); AST (SGOT) 68 U/L (14-36); Albumin 3.5 g/dl (3.5-5.0); Alkaline Phosphatase 51 U/L (38-126); Blood Urea Nitrogen 21 mg/dl (7-17); Calcium 9.1 mg/dl (8.4-10.2); Carbon Dioxide 28 mmol/L (22-30); Chloride 103 mmol/L (98-107); Estimated Creatinine Clearance 63 ml/min; Glucose 93 mg/dl (70-99); Potassium 4.0 mmol/L (3.5-5.1); Sodium 136 mmol/L (135-145); Total Protein 6.3 g/dl (6.3-8.2); eGFR > 60.00
[2025-07-28 05:42] LABS: Hematocrit 37.9 % (37.0-47.0); Hemoglobin 12.8 g/dL (12.0-16.0); Mean Corp Hgb Conc. 33.8 g/dL (33.0-37.0); Mean Corpuscular Volume 87.1 fL (81.0-99.0); Platelet Count 236 10^3/uL (130-400); Red Cell Dist. Width 13.2 % (11.5-14.5)
--- NOTE | 2025-07-28 07:24 | W.PN.CARDCBS ---
Today's Communication / Plan
-
In the setting of CVA and paroxysmal atrial fibrillation, patient would benefit from anticoagulation. After discussion with neurology, patient transition to anticoagulation in 2 weeks.
With neuro input, can start Eliquis 5 mg BID (age 84, Cre 0.4, wt 69.7 kg) on 08/04/25.
Cont amiodarone load with amiodarone 400 mg TID, started 07/27/2025 AM
Check EKG to monitor QTc
Echo reviewed with preserved LV function and no significant valvular disease, images reviewed
Continue statin therapy for hyperlipidemia with LDL 56 and outpatient dose of Crestor 20 mg daily has been continued
Resume outpatient antihypertensive therapy as BP will allow.
Outpatient dose of valsartan and HCTZ remains on hold
Impression / Plan
-
.
PCP: Dr. Magalis Julian
Cardiology: None prior to admission
Impression:
Admitted with possible CVA, right-sided facial droop and prehospital stroke alert 07/21/2025
Acute CVA treated with TNK 07/21/2025
Acute intracranial hemorrhage involving the posterior right parietal lobe, stable by most recent CT head 07/25/2025
h/o CVA right parietal lobe to the superior right occipital lobe and posterior superior right temporal lobe seen on CT of head 07/21/2025
Newly diagnosed paroxysmal A-fib with spontaneous conversion to SR on Cardizem gtt 07/27/2025
h/o right CEA 05/21/2023
TME
Undiagnosed baseline movement disorder with unremarkable workup for seizures thus far
HTN
Hyperlipidemia
h/o breast cancer with previous lumpectomy, radiation and chemotherapy with Adriamycin and cytotoxin in 1997
Echo 07/23/2025: EF 63%, no WMA, mild MR, mild TR
Plan:
-Patient admitted with CVA and treated with TNK 07/21/2025. Patient then found to have acute intracranial hemorrhage in the posterior right parietal lobe and has been stable by serial CT of the head as recently as 07/25/2025. -s/p paroxysmal atrial
fibrillation converted to sinus rhythm spontaneously.
In the setting of CVA and paroxysmal atrial fibrillation, patient would benefit from anticoagulation. After discussion with neurology, patient transition to anticoagulation in 2 weeks.
With neuro input, can start Eliquis 5 mg BID (age 84, Cre 0.4, wt 69.7 kg) on 08/04/25.
Cont amiodarone load with amiodarone 400 mg TID, started 07/27/2025 AM
Check EKG to monitor QTc
Echo reviewed with preserved LV function and no significant valvular disease, images reviewed
Continue statin therapy for hyperlipidemia with LDL 56 and outpatient dose of Crestor 20 mg daily has been continued
Resume outpatient antihypertensive therapy as BP will allow.
Outpatient dose of valsartan and HCTZ remains on hold
Family updated last 24 hrs
HPI: Patient came to [facility] ER last Sunday as a prehospital stroke alert and was treated with TNK followed by hemorrhagic conversion and cardiology is now consulted for new diagnosis of A-fib seen on telemetry this morning. Patient was brought to
the ER this past Sunday with new right sided facial droop and dysarthria. Initial CT scan was delayed due to involuntary movements that were initially thought to be due to possible seizure, but family says are part of a chronic underlying
undiagnosed movement disorder. Once CT imaging was obtained the patient was given TNK. CT of the head also showed an area of encephalomalacia in the right parietal lobe extending to the junction of the superior right occipital lobe and the
posterior and superior right temporal lobe that look like an area of an old infarction. Patient had a previous right CEA back in 2022. MRI of the brain the following day showed a small intraparenchymal hemorrhage in the posterior high right
parietal lobe that has been followed with serial CT scans of the head and has been stable as recently as 07/25/2025. Patient has been on aspirin therapy alone and was not yet started on Plavix. Patient noted to have newly diagnosed A-fib with RVR
seen on telemetry this morning. Patient initially given Cardizem IV bolus and then developed hypotension, Cardizem gtt deferred. Patient then given a dose of digoxin for an attempt at rate control, BP improved and Cardizem gtt eventually started
and was running at 15 mg 1 patient had spontaneous conversion to SR during cardiology evaluation this morning. Patient was asymptomatic with A-fib and was also asymptomatic with spontaneous conversion. No conversion pause noted.
Outpatient dose of valsartan and HCTZ remains on hold.
Progress Note - Dental Laboratory Technician
Subjective
Date of Service: July 28, 2025
Pt seen and examined. No complaints. No chest pain or shortness of breath. She slept well.
Objective
Labs:
07/28/25 04:52
07/28/25 04:52
Labs
Hgb 12.8 g/dL (12.0-16.0) 07/28/25 04:52
Hct 37.9 % (37.0-47.0) 07/28/25 04:52
Plt Count 236 10^3/uL (130-400) D 07/28/25 04:52
PT 14.7 Sec (11.4-14.6) H 07/22/25 04:45
INR 1.12 07/22/25 04:45
APTT 22.9 Sec (23.4-35.0) L 07/22/25 04:45
Sodium 136 mmol/L (135-145) 07/28/25 04:52
Potassium 4.0 mmol/L (3.5-5.1) 07/28/25 04:52
BUN 21 mg/dl (7-17) H 07/28/25 04:52
Creatinine 0.6 mg/dL (0.6-1.0) 07/28/25 04:52
Glucose 93 mg/dl (70-99) 07/28/25 04:52
Vital Signs and I&O:
Vital Signs
Temp Pulse Resp BP Pulse Ox
97.8 F 60 18 121/54 97
07/28/25 03:00 07/28/25 06:00 07/28/25 06:00 07/28/25 04:00 07/28/25 04:00
Vital Signs
Temp Pulse Resp BP Pulse Ox
97.8 F 60 18 121/54 97
07/28/25 03:00 07/28/25 06:00 07/28/25 06:00 07/28/25 04:00 07/28/25 04:00
Intake & Output
07/26/25 07/27/25 07/28/25 07/29/25
06:59 06:59 06:59 06:59
Intake Total 1050 / 1050
Balance 1050 / 1050
Physical Exam
Physical Exam
General: No acute distress, AAOX3
Neck: Negative JVD
Heart: Regular, Negative S3 positive S1/S2, Negative S4, No murmur
Lungs: CTA b/l, negative wheezes/rales/rhonchi
Abd: Positive BS, NT/ND, neg rebound/rigidity/guarding
Ext: Negative cyanosis/clubbing/edema
Neuro: nonfocal
--- NOTE | 2025-07-28 07:54 | W.PN.HOSP.TC ---
Today's Communication/Plan
-
Continue Amiodarone load
Hopefully [facility] tomorrow
Assessment / Plan
Assessment / Plan
Physical Exam
General: Awake, alert, no acute distress
HEENT: Normocephalic
Respiratory: Clear to Auscultation bilaterally
Cardiac: Normal S1/S2, Regular Rate and Rhythm
GI: Soft, Nontender, Nondistended, Normal Bowel Sounds
Extremities: No Cyanosis, No Edema
Neuro: Alert. Awake. Nonfocal/grossly intact
Psych: Calm/cooperative
Assessment/Plan
HPI: 84-year-old female was last seen approximate 2 PM this afternoon by her when she asked her to check her blood pressure. He notes she had difficulty moving her right arm getting it out of her robe. She started to have trouble
speaking but then speech became clear. He called his son over to the house who noticed that she was not responding as normal she had right sided facial droop. Upon EMS arrival she was found to exhibit left preferential gaze unable to follow verbal
commands. Stroke alert was called was determined by stroke fellow patient received TNK. Her states yesterday she was complaining of headache and did take Excedrin. According to ER nurse upon arrival patient was unresponsive but restless
moving all of her extremities in bed shoulders arms legs head but was unable to open eyes follow commands. She received Versed 4 mg, IV Ativan, Keppra 4000 mg and is still restless. Her family states she does have some baseline movement disorder
of her arms and legs but never to this degree. She does not have fever, diaphoresis, cough, vomiting, diarrhea.
#Acute�subacute stroke with hemorrhagic conversion
#Acute intracranial hemorrhage involving the posterior right parietal lobe
#Acute dysarthria
#Acute right facial droop
Status post TNK in the ED 07/21
Neurology following, continue post TNA protocol and monitor NIHSS and neurologic checks as per protocol
2. Recently resumed home Diovan. IV hydralazine prn for goal SBP less than 140
3. Brain MRI & echo reviewed. 07/[address] showed unchanged right posterior lobe intracranial hemorrhage
4. LDL 56, HgA1C 5.3. Resumed statin
5. Neurology recommends holding aspirin, I communicated on 07/27/[address] via [place] Text with Dr. Cutler who recommended continuing to hold Aspirin
6. Speech, physical, occupational therapies - rec acute rehab, accepted by [facility]
07/25, RN reported higher NIHSS score. Repeat head CT repeated showing stable right parietal lobe intracranial hemorrhage
Previously transferred to IMU for closer monitoring
Diet changed to soft with thin liquids as per SPL recommendations
#Paroxysmal Atrial Fibrillation
-Received Cardizem Drip and bolus, Digoxin, now on Amiodarone load -- continue
-Monitor CMP while on Amiodarone
-In the setting of stroke and paroxysmal atrial fibrillation, patient would benefit from anticoagulation -- per neurology, okay to start anticoagulation (Eliquis 5 mg BID) 2 weeks after CVA -- start Eliquis 5 mg BID on 08/04/25
-Per neurology, okay to recheck CT of head immediately prior to start of anticoagulation
#Acute toxic metabolic encephalopathy
Status post Precedex drip
ABG's reviewed, patient is not significantly hypercapnic
B12/TSH normal
Resolved, continue supportive care
#Flailing extremities concerning for seizure activity
#Baseline movement disorder
Family reports that patient has a baseline movement disorder of her arms and legs, but this has worsened in severity since being in the hospital
Ceribell negative for seizures
Appreciate neurology input, EEG neg for seizures
Continue Keppra
#Essential hypertension
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
Home Diovan previously resumed. IV hydralazine prn for goal SBP less than 140
#Right hip pain
#Lumbar spine degenerative disc disease
Right hip x-rays negative, lumbar spine x-rays confirm DDD
Right lower back tenderness around iliac crest, suspected from fall, she is able to have good range of motion of her right hip however
Continue Tylenol as needed, added lidocaine patches
#Hypokalemia
Repleted and resolved
#Hyponatremia
Mild, monitor
#Prolonged QTc
-Monitor QTc now that patient is on Amiodarone
#Hyperlipidemia
Resumed statin
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
#History of Gilbert's syndrome
#History of breast cancer 1997
Status post right lumpectomy, chemo, radiation
#Back Wounds/Lacerations from Fall
-Wound care consulted
DVT prophylaxis�SCDs. Lovenox.
Full code
Anticipated Discharge: Within 24 hours
Subjective/Interval History
-
Date of Service: July 28, 2025
Patient was seen and examined. She denied any chest pain or shortness of breath, still has some mild right lower back tenderness after the fall.
Objective Data
-
Labs:
Laboratory Results
07/28/25
04:52
WBC 9.5
Hgb 12.8
Hct 37.9
Plt Count 236 D
Sodium 136
Potassium 4.0
Chloride 103
Carbon Dioxide 28
BUN 21 H
Creatinine 0.6
Glucose 93
Calcium 9.1
Total Bilirubin 1.5 H
AST 68 H
ALT 46 H
Alkaline Phosphatase 51
Vital Signs:
Vital Signs
Temp Pulse Resp BP Pulse Ox
97.8 F 63 22 109/78 97
07/28/25 03:00 07/28/25 07:30 07/28/25 07:30 07/28/25 06:50 07/28/25 04:00
[2025-07-28] MEDS: PACERONE 400 MG PO ×3 (08:07→21:44)
[2025-07-28] MEDS: KEPPRA 500 MG PO ×2 (08:08→19:24)
[2025-07-28] MEDS: LIDOCAINE 4% PATCH 1 PATCH TOPICAL ×2 (08:08)
[2025-07-28] MEDS: MIRALAX 17 GRAMS PO (08:08)
--- NOTE | 2025-07-28 11:13 | WOUNDNOTE ---
R BUTTOCK CLOSER VIEW
--- NOTE | 2025-07-28 11:15 | WOUNDNOTE ---
STEPHANIE RN NOTE: Patient admitted with acute CVA on 07/21, reviewed PMH in chart. Patient fell at home, has scattered healing patches of bruising on buttocks, back and arm. Asked to see for laceration on R buttock that she sustained from fall. R buttock
with scabbed laceration, no drainage or signs of infection. Mild MASD in gluteal cleft. PCT assisted with standing patient and transferring to bed, patient uses walker on own. Heels are intact, pillow in use under calves. Silicone foam applied to
laceration and sacral silicone foam to protect sacrum/buttocks. Instructed PCT if silicone foam keeps getting soiled can use Calazime instead. Will update care plan and sign off unless needed.
--- NOTE | 2025-07-28 11:35 | PTCARENOTE ---
Assumed care of patient at beginning of this shift from previous RN; cannot verify accuracy of vital signs prior to 0700. OOB to chair and commode x1-2 assist. Ox3, forgetful at times. Incontinent of loose bm after receiving miralax. Worked with PT.
NIHSS =2. Patient continues to c/o pain in R hip/buttocks area. Dr Jewell in to see patient early this morning and made aware. Son and in to see patient. Dr Cox in to see patient; EKG done as per his order. See worklist for full
assessment and vital signs.
[2025-07-28 14:36] LABS: Retinyl Palmitate <0.02 mg/L (0.00-0.10); Xitamin A Interpretation Normal
--- NOTE | 2025-07-28 16:42 | CM ---
F/U: Patient might be ready tomorrow. [facility] may not have a bed by so [facility] will check tomorrow if patient is ready and if [facility] will have a discharge on , otherwise, the facility will have to be [facility].
PLAN: Acute Rehab when ready.
[2025-07-28] MEDS: CRESTOR 20 MG PO (17:07)
[2025-07-28] MEDS: LOVENOX 40 MG SC (17:07)
[2025-07-28] MEDS: REMOVE LIDOCAINE PATCH 1 PATCH REMOVE ×2 (19:24)
[2025-07-29] VITALS (10 sets, daily range): BP systolic 90–154; BP diastolic 59–106; PULSE 64; O2SAT 96
--- NOTE | 2025-07-29 00:33 | PTCARENOTE ---
Assumed care for patient overnight. Pt AAOx3. NIHSS-2. Pt OOB in the chair at change of shift. Pt ambulated to BSC and back to bed with assist x1-2 with a rolling walker. Pt had loose BM. Hygiene completed. Pt c/o pain to the right hip, PRN Tylenol
administered, see MAR. NSR on the monitor. Pt remains on RA, 98%. Call chilel within reach.
[2025-07-29] MEDS: TYLENOL 650 MG PO (04:32)
[2025-07-29 04:42] LABS: Hematocrit 37.3 % (37.0-47.0); Hemoglobin 12.8 g/dL (12.0-16.0); Mean Corp Hgb Conc. 34.3 g/dL (33.0-37.0); Mean Corpuscular Volume 88.0 fL (81.0-99.0); Platelet Count 249 10^3/uL (130-400); Red Cell Dist. Width 13.1 % (11.5-14.5)
[2025-07-29 05:08] LABS: ALT (SGPT) 38 U/L (0-35); AST (SGOT) 37 U/L (14-36); Albumin 3.5 g/dl (3.5-5.0); Alkaline Phosphatase 44 U/L (38-126); Blood Urea Nitrogen 13 mg/dl (7-17); Calcium 9.3 mg/dl (8.4-10.2); Carbon Dioxide 28 mmol/L (22-30); Chloride 104 mmol/L (98-107); Estimated Creatinine Clearance 63 ml/min; Glucose 90 mg/dl (70-99); Magnesium 2.0 mg/dl (1.6-2.3); Potassium 3.9 mmol/L (3.5-5.1); Sodium 139 mmol/L (135-145); Total Protein 6.3 g/dl (6.3-8.2); eGFR > 60.00
--- NOTE | 2025-07-29 07:41 | W.PN.HOSP.TC ---
Today's Communication/Plan
-
Discharge today
Assessment / Plan
Assessment / Plan
Physical Exam
General: Awake, alert, no acute distress
HEENT: Normocephalic
Respiratory: Clear to Auscultation bilaterally
Cardiac: Normal S1/S2, Regular Rate and Rhythm
GI: Soft, Nontender, Nondistended, Normal Bowel Sounds
Extremities: No Cyanosis, No Edema
Neuro: Alert. Awake. Nonfocal/grossly intact
Psych: Calm/cooperative
Assessment/Plan
HPI: 84-year-old female was last seen approximate 2 PM this afternoon by her when she asked her to check her blood pressure. He notes she had difficulty moving her right arm getting it out of her robe. She started to have trouble
speaking but then speech became clear. He called his son over to the house who noticed that she was not responding as normal she had right sided facial droop. Upon EMS arrival she was found to exhibit left preferential gaze unable to follow verbal
commands. Stroke alert was called was determined by stroke fellow patient received TNK. Her states yesterday she was complaining of headache and did take Excedrin. According to ER nurse upon arrival patient was unresponsive but restless
moving all of her extremities in bed shoulders arms legs head but was unable to open eyes follow commands. She received Versed 4 mg, IV Ativan, Keppra 4000 mg and is still restless. Her family states she does have some baseline movement disorder
of her arms and legs but never to this degree. She does not have fever, diaphoresis, cough, vomiting, diarrhea.
#Acute�subacute stroke with hemorrhagic conversion
#Acute intracranial hemorrhage involving the posterior right parietal lobe
#Acute dysarthria
#Acute right facial droop
Status post TNK in the ED 07/21
Neurology consult appreciated
Continue Valsartan on discharge at 40 mg daily
Maintain SBP less than 140 mmHg and diastolic less than 90 mmHg given hemorrhagic area in the brain
Since 07/27/25, patient has not needed IV hydralazine prn for goal SBP less than 140
Brain MRI & echo reviewed. 07/[address] showed unchanged right posterior lobe intracranial hemorrhage
LDL 56, HgA1C 5.3
Continue Statin
Neurology recommends holding aspirin, I communicated on 07/27/25 and on 07/29/25 via [place] Text with Dr. Cutler who recommended continuing to hold all antiplatelets or anticoagulation on discharge (but anticoagulation to be started on 08/04/25 as per
neurology)
Speech, physical, occupational therapies - rec acute rehab, accepted by [facility]
07/25, RN reported higher NIHSS score. Repeat head CT repeated showing stable right parietal lobe intracranial hemorrhage
Previously transferred to IMU for closer monitoring
Diet upgraded to Regular Solids and Thin Liquids, follow Aspiration Precautions (ensure oral cavity clear post P.O. intake, slow rate, sit upright)
#Paroxysmal Atrial Fibrillation
-Received Cardizem Drip and bolus, Digoxin, but now on Amiodarone load -- continue
-Amiodarone regimen on discharge (on the day of discharge, I confirmed this -- via [place] Text -- with chicken raiser Dr. Arya Wayne who recommended that on discharge, Amiodarone 200 mg BID for one month then 200 mg daily
-Monitor CMP while on Amiodarone
-In the setting of stroke and paroxysmal atrial fibrillation, patient would benefit from anticoagulation -- per neurology, okay to start anticoagulation (Eliquis 5 mg BID) 2 weeks after CVA -- start Eliquis 5 mg BID on 08/04/25 - per neurology, okay
to recheck CT of head immediately prior to start of anticoagulation
-Per chicken raiser Dr. Wayne communication via [place] Text, okay to discharge the patient today
#Acute toxic metabolic encephalopathy
Status post Precedex drip
ABG's reviewed, patient is not significantly hypercapnic
B12/TSH normal
Resolved, continue supportive care
#Flailing extremities concerning for seizure activity
#Baseline movement disorder
Family reports that patient has a baseline movement disorder of her arms and legs, but this has worsened in severity since being in the hospital
Ceribell negative for seizures
Appreciate neurology input, EEG neg for seizures
Continue Keppra
#Essential hypertension
Was on valsartan�hydrochlorothiazide [employer]
Continue Valsartan on discharge at 40 mg daily
#Right lower back pain around the right iliac crest
#Lumbar spine degenerative disc disease
Right hip x-rays negative, lumbar spine x-rays confirm DDD
Right lower back tenderness around iliac crest, suspected from fall, she is able to have good range of motion of her right hip however
Continue Tylenol as needed, added lidocaine patches
#Hypokalemia
Repleted and resolved
#Hyponatremia
Mild, monitor
#Prolonged QTc
-Monitor QTc now that patient is on Amiodarone
#Hyperlipidemia
Continue high intensity statin
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
#Left Carotid Stenosis with 50-69% internal carotid artery stenosis on recent imaging
-Follow-up with vascular surgery outpatient, please contact Dr. Ray to see if any med changes needed from their perspective, in coordination with neurology and cardiology
#History of Gilbert's syndrome
#History of breast cancer 1997
Status post right lumpectomy, chemo, radiation
#Back Wounds/Lacerations from Fall
-Wound care consulted
DVT prophylaxis�SCDs. Lovenox.
Diet: Can be on regular solids and THIN liquids
Full code
More than 30 minutes spent in discharge including
Final examination of the patient
Summarizing hospital stay
Instructions for continuing care to all relevant caregivers
Preparation of discharge records, prescriptions, and referral forms
Total time spent (in minutes): 42
Anticipated Discharge: Today
Subjective/Interval History
-
Date of Service: July 29, 2025
Patient was seen and examined. She denied any new symptoms or complaints. She reported that she is able to ambulate with a walker.
Objective Data
-
Labs:
Laboratory Results
07/29/25
04:08
WBC 8.9
Hgb 12.8
Hct 37.3
Plt Count 249
Sodium 139
Potassium 3.9
Chloride 104
Carbon Dioxide 28
BUN 13
Creatinine 0.5 L
Glucose 90
Calcium 9.3
Total Bilirubin 1.2
AST 37 H
ALT 38 H
Alkaline Phosphatase 44
Vital Signs:
Vital Signs
Temp Pulse Resp BP Pulse Ox
97.9 F 64 16 118/72 99
07/29/25 03:00 07/29/25 06:00 07/29/25 06:00 07/29/25 06:00 07/28/25 23:32
I&O
07/28/25 07/29/25 07/30/25
06:59 06:59 06:59
Intake Total 220 / 220
Balance 220 / 220
[2025-07-29] MEDS: KEPPRA 500 MG PO (08:43)
[2025-07-29] MEDS: PACERONE 400 MG PO (08:43)
[2025-07-29] MEDS: LIDOCAINE 4% PATCH 1 PATCH TOPICAL ×2 (08:43→08:44)
[2025-07-29] MEDS: MIRALAX PO (08:44)
--- NOTE | 2025-07-29 12:02 | W.PN.CARDCBS ---
Today's Communication / Plan
-
Maintaining sinus rhythm - Plan for amiodarone 200mg BID x1 month and then transition to 200mg daily
Per neurology can start Eliquis 5 mg BID on 08/04/25.
Stable for discharge from my perspective
Impression / Plan
-
PCP: Dr. Magalis Julian
Cardiology: None prior to admission
Impression:
Admitted with possible CVA, right-sided facial droop and prehospital stroke alert 07/21/2025
Acute CVA treated with TNK 07/21/2025
Acute intracranial hemorrhage involving the posterior right parietal lobe, stable by most recent CT head 07/25/2025
h/o CVA right parietal lobe to the superior right occipital lobe and posterior superior right temporal lobe seen on CT of head 07/21/2025
Newly diagnosed paroxysmal A-fib with spontaneous conversion to SR on Cardizem gtt 07/27/2025
h/o right CEA 05/21/2023
TME
Undiagnosed baseline movement disorder with unremarkable workup for seizures thus far
HTN
Hyperlipidemia
h/o breast cancer with previous lumpectomy, radiation and chemotherapy with Adriamycin and cytotoxin in 1997
Echo 07/23/2025: EF 63%, no WMA, mild MR, mild TR
Plan:
Patient admitted with CVA and treated with TNK 07/21/2025. Patient then found to have acute intracranial hemorrhage in the posterior right parietal lobe and has been stable by serial CT of the head as recently as 07/25/2025. Found to be in atrial
fibrillation and subsequently converted to sinus rhythm spontaneously.
In the setting of CVA and paroxysmal atrial fibrillation, patient would benefit from anticoagulation
Per neurology can start Eliquis 5 mg BID (age 84, Cre 0.4, wt 69.7 kg) on 08/04/25.
Cont amiodarone load
Plan for amiodarone 200mg BID for 1 month and then transition to PO amiodarone 200mg once daily
Echo reviewed with preserved LV function and no significant valvular disease
Continue statin therapy for hyperlipidemia with LDL 56 and outpatient dose of Crestor 20 mg daily has been continued
Resume outpatient antihypertensive therapy as BP will allow.
Outpatient dose of valsartan and HCTZ remains on hold
Stable for discharge from my perspective
Outpatient follow-up to be arranged
HPI: Patient came to [facility] last Sunday as a prehospital stroke alert and was treated with TNK followed by hemorrhagic conversion and cardiology is now consulted for new diagnosis of A-fib seen on telemetry this morning. Patient was brought to
the ER this past Sunday with new right sided facial droop and dysarthria. Initial CT scan was delayed due to involuntary movements that were initially thought to be due to possible seizure, but family says are part of a chronic underlying
undiagnosed movement disorder. Once CT imaging was obtained the patient was given TNK. CT of the head also showed an area of encephalomalacia in the right parietal lobe extending to the junction of the superior right occipital lobe and the
posterior and superior right temporal lobe that look like an area of an old infarction. Patient had a previous right CEA back in 2022. MRI of the brain the following day showed a small intraparenchymal hemorrhage in the posterior high right
parietal lobe that has been followed with serial CT scans of the head and has been stable as recently as 07/25/2025. Patient has been on aspirin therapy alone and was not yet started on Plavix. Patient noted to have newly diagnosed A-fib with RVR
seen on telemetry this morning. Patient initially given Cardizem IV bolus and then developed hypotension, Cardizem gtt deferred. Patient then given a dose of digoxin for an attempt at rate control, BP improved and Cardizem gtt eventually started
and was running at 15 mg 1 patient had spontaneous conversion to SR during cardiology evaluation this morning. Patient was asymptomatic with A-fib and was also asymptomatic with spontaneous conversion. No conversion pause noted.
Outpatient dose of valsartan and HCTZ remains on hold.
Progress Note - Account Maintenance Representative
Subjective
Date of Service: July 29, 2025
No acute overnight events. Remains in the IMU where she is resting comfortably out of bed to chair eating breakfast. No cardiac complaints. Remains in sinus rhythm on review of telemetry.
Objective
Labs:
07/29/25 04:08
07/29/25 04:08
Labs
Hgb 12.8 g/dL (12.0-16.0) 07/29/25 04:08
Hct 37.3 % (37.0-47.0) 07/29/25 04:08
Plt Count 249 10^3/uL (130-400) 07/29/25 04:08
PT 14.7 Sec (11.4-14.6) H 07/22/25 04:45
INR 1.12 07/22/25 04:45
APTT 22.9 Sec (23.4-35.0) L 07/22/25 04:45
Sodium 139 mmol/L (135-145) 07/29/25 04:08
Potassium 3.9 mmol/L (3.5-5.1) 07/29/25 04:08
BUN 13 mg/dl (7-17) 07/29/25 04:08
Creatinine 0.5 mg/dL (0.6-1.0) L 07/29/25 04:08
Glucose 90 mg/dl (70-99) 07/29/25 04:08
Vital Signs and I&O:
Vital Signs
Temp Pulse Resp BP Pulse Ox
97.9 F 64 18 109/67 99
07/29/25 03:00 07/29/25 10:00 07/29/25 10:00 07/29/25 10:00 07/28/25 23:32
Vital Signs
Temp Pulse Resp BP Pulse Ox
97.9 F 64 18 109/67 99
07/29/25 03:00 07/29/25 10:00 07/29/25 10:00 07/29/25 10:00 07/28/25 23:32
Intake & Output
07/27/25 07/28/25 07/29/25 07/30/25
06:59 06:59 06:59 06:59
Intake Total 220 / 220
Output Total 300 / 300
Balance 220 / 220 -300 / -300
Physical Exam
Physical Exam
Gen: NAD, AAOx3
HEENT: NC/AT, sclera anicteric
Neck: No JVD
CV: RRR, NL s1/s2
Lungs: CTAB on RA
Abd: S/ND
Ext: No LE edema
Skin: Warm, dry
--- NOTE | 2025-07-29 13:51 | CM ---
F/U: Hospitalist and Cardiology stated that patient is ready. Miriam from [facility] stated patient has a bed today. Transport will be arranged for mid afternoon.
Report: #[phone]

Patient/ son, informed and IMM completed. PLAN: Acute Rehab at [facility].
--- NOTE | 2025-07-29 14:34 | PTCARENOTE ---
Rec'd pt this AM. NIHSS remains stable at 2. Pt OOB to chair. Accepted at [facility] for bed today. Gave report to RN, awaiting room assignment.
== END 2025-07-29 15:03 | DRG 61 ==
LOC: IMU 18:52
PROVIDERS: Clinical Nurse Specialist Family Health; Family Medicine; Psychiatry & Neurology Neurology; Registered Nurse; ADMITTING PHYSICIAN Internal Medicine; ATTENDING PHYSICIAN Hospitalist; CONSULT PHYSICIAN Internal Medicine Critical Care Medicine; CONSULT PHYSICIAN Physical Medicine & Rehabilitation; CONSULT PHYSICIAN Psychiatry & Neurology Neurology; EMERGENCY PHYSICIAN Emergency Medicine; FAMILY PHYSICIAN Family Medicine; OTHER PHYSICIAN Nuclear Medicine Nuclear Cardiology
PROC: 3E03317 Introduction of Other Thrombolytic into Peripheral Vein, Percutaneous Approach (ICD-10-PCS; 2025-07-21)
PROC: XX20X89 Monitoring of Brain Electrical Activity, Computer-aided Detection and Notification, New Technology Group 9 (ICD-10-PCS; 2025-07-22)
DX: I63.9 Cerebral infarction, unspecified (principal); G92.8 Other toxic encephalopathy; G93.6 Cerebral edema; G25.9 Extrapyramidal and movement disorder, unspecified; I62.9 Nontraumatic intracranial hemorrhage, unspecified; R41.4 Neurologic neglect syndrome; G81.94 Hemiplegia, unspecified affecting left nondominant side; D68.32 Hemorrhagic disorder due to extrinsic circulating anticoagulants; E87.1 Hypo-osmolality and hyponatremia; R47.01 Aphasia; R29.810 Facial weakness; R45.1 Restlessness and agitation; G93.89 Other specified disorders of brain; I16.0 Hypertensive urgency; R47.1 Dysarthria and anarthria; D72.829 Elevated white blood cell count, unspecified; R13.10 Dysphagia, unspecified; E87.6 Hypokalemia; T45.615A Adverse effect of thrombolytic drugs, initial encounter; Y92.239 Unspecified place in hospital as the place of occurrence of the external cause; I48.0 Paroxysmal atrial fibrillation; I10 Essential (primary) hypertension; E80.4 Gilbert syndrome; K57.30 Diverticulosis of large intestine without perforation or abscess without bleeding; D64.9 Anemia, unspecified; G31.9 Degenerative disease of nervous system, unspecified; M19.90 Unspecified osteoarthritis, unspecified site; M85.80 Other specified disorders of bone density and structure, unspecified site; M51.16 Intervertebral disc disorders with radiculopathy, lumbar region; E78.00 Pure hypercholesterolemia, unspecified; H40.9 Unspecified glaucoma; G43.909 Migraine, unspecified, not intractable, without status migrainosus; Z96.651 Presence of right artificial knee joint; Z86.0100 Personal history of colon polyps, unspecified; Z85.3 Personal history of malignant neoplasm of breast; Z92.21 Personal history of antineoplastic chemotherapy; Z92.3 Personal history of irradiation; Z88.8 Allergy status to other drugs, medicaments and biological substances; Z91.018 Allergy to other foods; Z79.899 Other long term (current) drug therapy; Z91.81 History of falling; Z80.3 Family history of malignant neoplasm of breast; Z82.49 Family history of ischemic heart disease and other diseases of the circulatory system
CPT/HCPCS: 36600; 51702; 70450; 70496; 70498; 70551; 71045; 72100; 73502; 80048; 80053; 80061; 82140; 82607; 82805; 82962; 83036; 83735; 84100; 84443; 84590; 85027; 85610; 85730; 92507; 92523; 92526; 92610; 93005; 93306; 95705; 95816; 96374; 96375; 96376; 97112; 97116; 97129; 97163; 97167; 97530; 97535; 99291; J1160; J3101; Q9967